=== PATIENT | female | born 1985 | race Caucasian/White ===

== ENCOUNTER 2019-09-04 13:46 | Outpatient (CLI) | payer BC, SELFPAY ==
--- NOTE | ~2019-09-04 | MM_ITS ---
CORRECTED REPORT ORDERING DOCTOR CORRECTED TO DR. Cathie CAICEDO. 09/06/19 sef EXAMINATION: MM screening beth BI w alison HISTORY: Screening mammogram TECHNIQUE: Craniocaudal and mediolateral oblique 3-D tomosynthesis images were obtained and synthetic 2-D images were generated. CAD analysis was submitted and interpreted. COMPARISON: None, baseline BREAST PARENCHYMAL COMPOSITION: There are scattered areas of fibroglandular density. FINDINGS: There is no evidence of suspicious mass, calcification, or architectural distortion to suggest malignancy in either breast. IMPRESSION: 1. No mammographic evidence of malignancy. 2. Recommend routine screening mammography beginning at age 40. BI-RADS Category 1: Negative Reviewed, dictated and finalized at location A. WARE QA SYSTEM SPECIALIST MTDD
== END 2019-09-04 13:47 | disposition home or self-care (01) ==
PROVIDERS: PCP Emergency Medicine; Visit Provider Emergency Medicine
DX: Z12.31 Encounter for screening mammogram for malignant neoplasm of breast (principal)
CPT/HCPCS: 77063; 77067

== ENCOUNTER 2020-10-20 12:54 | Outpatient (CLI) | payer OTHER, SELFPAY ==
[2020-10-20 14:26] LABS: SARS-CoV-2 RNA PCR Negative (Negative)
== END 2020-10-20 12:55 | disposition home or self-care (01) ==
PROVIDERS: PCP Internal Medicine; Visit Provider Nurse Practitioner Family
DX: J02.9 Acute pharyngitis, unspecified (principal); Z20.822 Contact with and (suspected) exposure to COVID-19
CPT/HCPCS: 87081; 87880; C9803; U0003; U0005

== ENCOUNTER 2021-02-20 08:00 | Outpatient (RCR) | payer OTHER, SELFPAY ==
--- NOTE | 2020-12-22 15:54 | OTOPEVAL ---
OCCUPATIONAL THERAPY INITIAL EVALUATION: 12/22/2020 Thank you for referring Linda Richardson to [facility].? The patient is scheduled to be seen for therapy? 1-2x/week for 4 weeks. Please review, sign, date and return this plan of care BHARAT. I agree with and certify that the following plan of care is medically necessary. Referring Physician Date Attending Provider: Gt Verde MD *OT Outpatient Evaluation Start: 12/22/20 12:49 Freq: Status: Active Protocol: Document 12/22/20 14:36 KJL (Rec: 12/22/20 15:54 KJL [id number]) Therapy Assessment Status Assessment Status Assessment Status Evaluation Evaluation Information Problem Diagnosis B OCTR, R cubital tunnel release Onset August-October 2020 Additional Evaluation Detail Patient had first R OCTR August 19, 2020, R UE ulnar neuroplasty at elbow approximately a month later in september 2020, and L OCTR on October 19, 2020. Plan to have L UE ulnar neuroplasty at elbow on January 06, [address] Verde. 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 Patient reports numbness, achy, throbbing throughout posterior and medial aspect for elbow into forearm and into ulnar aspect of fingertips. resulting in R UE ulnar neuroplasty at elbow and a L UE ulnar neuroplasty at elbow scheduled for the end of December. since elbow surgery on R UE, pain has been decreased and almost resolved. Patient reports since surgery on bilateral OCTR, it has been painful to drive and caused achiness when gripping and grasping items for prolonged periods of time. Patient reports painful when completing yard work including using la
--- NOTE | 2020-12-29 12:58 | PCOTNOTE ---
Patient did not show up for scheduled appointment this date. When called patient, patient reports mix up of dates and thought appointment was tomorrow. Re-scheduled patient's appointment to 12/31/2020.
--- NOTE | 2021-01-21 15:29 | OTOPEVAL ---
OCCUPATIONAL THERAPY RE-EVALUATION AND PROGRESS REPORT 01/21/21 Linda presents today for OT re-evaluation after 3 weeks of therapy (6 treatment sessions total) following bilateral carpal tunnel release surgeries and bilateral ulnar neuroplasty surgeries with residual pain and weakness. Patient is making good progress with reduced pain, improved flexibility, and improved strength. The right hand continues to have sensation deficits in the median nerve distribution, otherwise all other areas of both hands are testing within normal limits. She has been compliant with HEP for right UE strengthening and left UE active ROM. Continued skilled OT is indicated to progress left UE strengthening, scar management, and to continue to treat right carpal tunnel. Thank you for referring Linda Richardson to [facility].? The patient is scheduled to be seen for therapy? 2x/week for 4 weeks. Please review, sign, date and return this plan of care BHARAT. I agree with and certify that the following plan of care is medically necessary. Referring Physician Date Referring Provider: Gt Verde MD *OT Outpatient Re-Evaluation Re-Evaluation Information Problem Diagnosis Bilateral carpal tunnel and cubital tunnel release surgeries Additional Evaluation Detail (R) CTR Aug (R) cubital tunnel release September (L) CTR October (L) cubital tunnel December Subjective Information Patient reports feeling that Query Text:As Reported By Patient/ her right hand is stronger. Family She states that she continues to feel numbness in her thumb, index, and middle fingers on the right, however. 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 State the right elbow and ulnar 2 digits are great , having no issues or numbness. Reports tenderness in the left palm in the carpal tunnel scar site. Reports no paresthesias in the first three digits. Reports soreness and tenderness in the left cubital tunnel scar site and that the ulnar 2 digits are great , having no issues or numbness. Functionally the patient reports being able to do all the things she needs to do for herself, except after a lot of activity she will have pain and be sore after. She also
--- NOTE | 2021-02-20 08:45 | OTOPEVAL ---
OCCUPATIONAL THERAPY RE-EVALUATION AND DISCHARGE SUMMARY 02/20/21 Linda presents today for final OT re-evaluation s/p bilateral carpal tunnel and cubital tunnel release surgeries. She has made excellent progress. Today shows return to normal ROM and strength bilaterally. Residual deficit in sensation in the median nerve distribution of the right hand as demonstrated by 2-pt discrimination and Mayo-Marvin testing results. Patient is independent with ROM, stretching, nerve gliding, and night splinting to continue to help facilitate optimal nerve healing on the right. No further skilled OT indicated at this time. Patient in agreement with discharge. Thank you for referring Linda Richardson to [facility]. Please review, sign, date and return this Discharge Note BHARAT. I agree with and certify that the following plan of care is medically necessary. Referring Physician Date Referring Provider: Gt Verde MD *OT Outpatient Re-Evaluation Evaluation Information Problem Diagnosis Bilateral carpal tunnel and cubital tunnel release surgeries Onset -October 2020 Additional Evaluation Detail (R) CTR 09/07 (R) cubital tunnel release 10/05 (L) CTR 11/05 (L) cubital tunnel 01/05 Therapy began 12/22/20. Today is her second and final re- evaluation. Subjective Information Patient reports prolonged Query Text:As Reported By Patient/ gripping, such as holding a Family steering wheel, exacerbates her CT symptoms bilaterally, worse on the right than the left. She states that she continues to feel numbness in her thumb, index, and middle fingers on the right. She reports no issues with the ulnar 2 digits bilaterally. Reports residual tenderness on the left elbow incision. States that she continues to drop items with the right hand. Functionally the patient reports being able to do all the things she needs to do for herself, except after a lot of activity she will have pain /soreness after, which is alleviated by rest and stretching. She also notes that sustained gripping continues to give her pain and increased numbness,
== END 2021-02-25 15:30 | disposition home or self-care (01) ==
LOC: ANHOT 08:00
PROVIDERS: PCP Internal Medicine; Visit Provider Plastic Surgery
DX: Z48.89 Encounter for other specified surgical aftercare (principal)
CPT/HCPCS: 97018; 97035; 97110; 97140; 97165

== ENCOUNTER 2021-05-01 08:17 | Outpatient (CLI) | payer OTHER, SELFPAY ==
--- NOTE | ~2021-05-01 | US_ITS ---
EXAMINATION: US aorta EXAM DATE: 05/01/2021 08:38 INDICATION: Abdominal Pain, Aortic Aneurysm. TECHNIQUE: Multiple grayscale and Doppler images of the aorta were obtained (by a technologist who pe rformed the scan) and subsequently reviewed. There is no prior study for comparison. FINDINGS: The abdominal aorta measures up to 2.5 cm proximally, 2.3 cm mid aspect, 1.7 cm distally. The right a nd left iliac bifurcations are also normal in size. Smooth appearing aortic wall. IMPRESSION: 1. Normal abdominal aortic ultrasound. Reviewed, dictated and finalized at location D.
== END 2021-05-01 08:18 | disposition home or self-care (01) ==
LOC: CHSIMG 08:20
PROVIDERS: PCP Internal Medicine; Visit Provider Internal Medicine
DX: R00.2 Palpitations (principal); R10.9 Unspecified abdominal pain
CPT/HCPCS: 76775

== ENCOUNTER 2021-05-07 10:01 | Outpatient (CLI) | payer OTHER, SELFPAY ==
--- NOTE | ~2021-05-07 | MM_ITS ---
EXAMINATION: MM screening beth BI w alison HISTORY: Screening mammogram TECHNIQUE: Craniocaudal and mediolateral oblique 3-D tomosynthesis images were obtained and synthetic 2-D images were generated. CAD analysis was submitted and interpreted. COMPARISON: September 04, 2019 bilateral digital screening mammogram BREAST PARENCHYMAL COMPOSITION: There are scattered areas of fibroglandular density. FINDINGS: There is no evidence of suspicious mass, calcification, or architectural distortion to sugg est malignancy in either breast. There has been no suspicious interval change. IMPRESSION: 1. No mammographic evidence of malignancy. 2. Recommend routine screening mammography in one year. BI-RADS Category 1: Negative Reviewed, dictated and finalized at location A.
--- NOTE | 2021-05-07 11:25 | ECHO_ITS ---
Patient Info Name: Linda Richardson Age: 35 years : 1985 Gender: Female Ht: 63 in Wt: 220 lbs BSA: 2.16 m2 HR: 73 bpm BP: 135 / 92 mmHg Technical Quality: Good Exam Date: 05/07/2021 10:29 AM Exam Location: [facility] [place] Patient Status: Outpatient Admit Date: 05/07/2021 Staff Ordering Physician: Ja Hendricks MD Stacker Tender: Korey Keenan RDCS, RT Attending Provider: Ja Hendricks MD Exam Type: CA echo doppler color flow Study Info Indications R00.2 - Palpitations Complete two-dimensional, color flow and Doppler transthoracic echocardiogram is performed. Strain analysis performed. Summary 1. Complete two-dimensional, color flow and Doppler transthoracic echocardiogram is performed. 2. Left ventricular chamber dimension is normal. 3. Left ventricular systolic function is normal, estimated at 60-65%. 4. The left ventricular diastolic function is normal. 5. E/e' 5 is not elevated. 6. Global longitudinal strain is normal at -19.7%. Left Ventricle E/e' 5 is not elevated. Global longitudinal strain is normal at -19.7%. Left ventricular chamber dimension is normal. Left ventricular systolic function is normal, estimated at 60-65%. The left ventricular diastolic function is normal. Right Ventricle Right ventricular systolic function is normal and with normal TAPSE 2.1 cm. Right ventricular chamber dimension is normal. Left Atria Left atrial chamber dimension is normal. Right Atria Right atrial chamber dimension is normal. Aortic Valve The aortic valve is trileaflet. There is no aortic valve stenosis. There is no aortic valve regurgitation. Pulmonic Valve There is no pulmonic regurgitation. Mitral Valve There is no mitral valve stenosis. There is no mitral valve regurgitation. Tricuspid Valve There is no tricuspid valve regurgitation. Pericardium/Pleural There is no pericardial effusion. Inferior Vena Cava Normal inferior vena cava with >50% collapse upon inspiration consistent with normal right atrial pressure, 5 mmHg. Aorta The aortic root size at the sinus of Valsalva is normal. Left Ventricular Outflow Tract Name Value Normal LVOT 2D LVOT Diameter 2.0 cm LVOT Doppler LVOT Peak Velocity 100 cm/s LVOT Peak Gradient 4 mmHg LVOT Mean Gradient 2 mmHg LVOT VTI 18 cm LVOT VTI/AV VTI Ratio 0.8 LVOT Stroke Volume 58 ml Mitral Valve Name Value Normal MV Doppler MV Decel [place] 297 cm/s2 MV PHT 69 ms MV Area (PHT) 3.2 cm2 4.0-5.0 MV Diastolic Function MV E Peak Velocity
== END 2021-05-07 10:02 | disposition home or self-care (01) ==
LOC: CHSIMG 10:02
PROVIDERS: PCP Internal Medicine; Visit Provider Internal Medicine
DX: R00.2 Palpitations (principal); R10.9 Unspecified abdominal pain; Z82.49 Family history of ischemic heart disease and other diseases of the circulatory system; Z12.31 Encounter for screening mammogram for malignant neoplasm of breast
CPT/HCPCS: 77063; 77067; 93306

== ENCOUNTER 2021-07-09 13:31 | Outpatient (RCR) | payer OTHER, SELFPAY ==
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
--- NOTE | 2021-08-05 15:30 | PTOPEVAL ---
Thank you for referring Linda Richardson to [facility].? The patient is scheduled to be seen for therapy? ____x/week for ___ weeks. Please review, sign, date and return this plan of care BHARAT. I agree with and certify that the following plan of care is medically necessary. Referring Physician Date Admitting Provider: Attending Provider: Ja Hendricks MD Referring Provider: *PT Outpatient Evaluation Start: 07/09/21 13:45 Freq: Status: Active Protocol: Document 08/05/21 14:15 [facility] (Rec: 08/05/21 15:30 [facility] [id number]) Therapy Assessment Status Assessment Status Assessment Status Re-evaluation Evaluation Information Problem Diagnosis neck and left shoulder pain Onset 06/30/21 Subjective Information patient reports she feels Query Text:As Reported By Patient/ better this date with her Family mobility in the L shoulder, but reports she still has pain in the front of the shoulder and middle back. she reports she is most affected in the shoulder with reaching and carrying activities, and most in the back with bending forward. Pain Assessment Timing of Pain Assessment Timing of Pain Assessment Assessment Pain Scale Pain Scale Used Numeric (1 - 10) Self Report Pain Assessment Left Shoulder(s) Reported Pain Level 5 Upper Back Reported Pain Level 5 Pain Score Pain Score 5,5: Self Report Interventions Used Interventions Used By Clinicians Activity or ADL's,Electrical Stimulation,Exercise,Heat Cervical and Lumbar ROM Cervical ROM Cervical Flexion (0-60) 50 Query Text:Active in Degrees Cervical Extension (0-70) 45 Query Text:Active in Degrees Cervical Lateral Flexion Right (0-50) 30 Query Text:Active in Degrees Cervical Lateral Flexion Left (0-50) 25 Query Text:Active in Degrees Cervical Rotation Right (0-90) 70 Query Text:Active in Degrees Cervical Rotation Left (0-90) 70 Query Text:Active in Degrees Cervical ROM Comments Pt. presents with pain in all planes of cervical spine movement Lumbar ROM Lumbar Flexion Active Knee Query Text:Hands to: Lumbar Comments slow hesitant forward flex movement Upper Extremity Range of Motion General Upper Extremity Range of Motion Gross Upper Extremity Range of Motion -left shoulder flexion 162 Comments
--- NOTE | 2021-09-02 14:59 | PTOPEVAL ---
Thank you for referring Linda Richardson to [facility].? The patient is scheduled to be seen for therapy? ____x/week for ___ weeks. Please review, sign, date and return this plan of care BHARAT. I agree with and certify that the following plan of care is medically necessary. Referring Physician Date Admitting Provider: Attending Provider: Ja Hendricks MD Referring Provider: *PT Outpatient Evaluation Start: 07/09/21 13:45 Freq: Status: Active Protocol: Document 09/02/21 11:[address] [facility] (Rec: 09/02/21 14:[address] [facility] [id number]) Therapy Assessment Status Assessment Status Assessment Status Re-evaluation Outpatient Past Medical History Neurological History Hx Neurological Disorders No Significant History Cardiovascular History Hx Cardiac Disorders No Significant History Respiratory History Hx Respiratory Disorders No Significant History Gastrointestinal History Hx Gastrointestinal Disorders No Significant History Genitourinary History Hx Genitourinary Disorders No Significant History Musculoskeletal History Hx Musculoskeletal Disorders No Significant History Hematological History Hx Hematological Disorders No Significant History Endocrine History Hx Endocrine Disorders No Significant History HEENT History Hx HEENT Disorders No Significant History Integumentary History Hx Other Skin Disorders Yes: discoid lupus Reproductive History Hx Reproductive Disorders No Significant History Psychosocial History Hx Psychiatric Disorders No Significant History Pain History History of Any Previous or Ongoing No Significant History Instance of Pain Evaluation Information Problem Diagnosis neck and left shoulder pain Onset 06/30/21 Additional Evaluation Detail ndi = 20% functional deficits reflecting more of the upper back quick dash = 54% functionally declined Subjective Information patient reports she continues Query Text:As Reported By Patient/ to have pain in the L shoulder Family and upper back. she reports her neck is much better and pain free now. she reports continues tightness/pulling and pain in the L shoulder with overhead reaching, reachign behind her back, and with trying to lift or carry any objects. Pain Assessment Timing of Pain Assessment Timing of Pain Assessment Assessment Pain Scale Pain Scale Used Numeric (1 - 10) Self Report Pain Assessment Left Shoulder(s)
== END 2021-09-02 23:59 | disposition home or self-care (01) ==
LOC: CHSPT 13:31
PROVIDERS: PCP Internal Medicine; Visit Provider Internal Medicine
DX: M54.9 Dorsalgia, unspecified (principal); M54.2 Cervicalgia; M25.512 Pain in left shoulder
CPT/HCPCS: 97014; 97110; 97140; 97161; G0283

== ENCOUNTER 2021-09-12 09:01 | Outpatient (CLI) | payer OTHER, SELFPAY ==
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
--- NOTE | ~2021-09-12 | XR_ITS ---
EXAMINATION: XR thoracic spine 3V EXAM DATE: 09/12/2021 10:05 INDICATION: Mid back pain. TECHNIQUE: Frontal and lateral projections of the thoracic spine as well as lateral swimmers projecti on of the upper thoracic spine for interpretation. There is no prior study for comparison. FINDINGS: The vertebral bodies are aligned in the AP dimension. Vertebral body and disc heights are well-maintained. There are no acute fractures identified. There are no bony erosions identified. Para spinal soft tissue is unremarkable. IMPRESSION: Unremarkable XR thoracic spine 3V exam. Reviewed, dictated and finalized at location A. T GRINDER
== END 2021-09-12 09:02 | disposition home or self-care (01) ==
PROVIDERS: PCP Internal Medicine; Visit Provider Internal Medicine
DX: M54.6 Pain in thoracic spine (principal); M25.512 Pain in left shoulder
CPT/HCPCS: 72072; 73221

== ENCOUNTER 2021-09-16 09:28 | Outpatient (CLI) | payer OTHER, SELFPAY ==
--- NOTE | ~2021-09-16 | US_ITS ---
EXAMINATION: US soft tissue UE RT DATE: 09/16/2021 09:41 INDICATION: Right upper arm lump. TECHNIQUE: Multiple grayscale and Doppler ultrasound images of the right upper arm were obtained. COMPARISON: None FINDINGS: In the patient's area of concern, there is a 2.0 x 0.7 x 1.5 cm subcutaneous mass with echo genicity and echotexture similar to normal subcutaneous fat. IMPRESSION: 1. 2.0 cm subcutaneous mass in medial right upper arm, likely a lipoma. Reviewed, dictated and finalized at location A. H NAPPING SUPERVISOR
== END 2021-09-16 09:29 | disposition home or self-care (01) ==
LOC: CHSIMG 09:29
PROVIDERS: PCP Internal Medicine; Visit Provider Internal Medicine
DX: R22.31 Localized swelling, mass and lump, right upper limb (principal)
CPT/HCPCS: 76882

== ENCOUNTER → 2021-09-19 00:01 | Outpatient (CLI) | payer OTHER, SELFPAY ==
[2021-09-19 12:28] LABS: SARS-CoV-2 RNA PCR Negative
== END ==
PROVIDERS: PCP Internal Medicine; Visit Provider Internal Medicine Gastroenterology
DX: Z01.812 Encounter for preprocedural laboratory examination (principal); Z20.822 Contact with and (suspected) exposure to COVID-19
CPT/HCPCS: C9803; U0003; U0005

== ENCOUNTER 2021-09-22 01:19 | Day surgery (SDC) | payer OTHER, SELFPAY ==
[2021-08-14 12:52] VITALS: BMI 41.0
--- NOTE | 2021-09-14 13:59 | PC.NURSE ---
Patient updated on new dates and times. prior interview completed 08/14/21.
[2021-09-22 12:27] VITALS: BP 142/98; PULSE 97; RESP 18; TEMP 36.5; O2SAT 100
[2021-09-22] MEDS: LACTATED RINGERS 1,000 ML 150 ML IV CONT (12:29)
--- NOTE | 2021-09-22 12:40 | P.PNAN_ITS ---
Anes - Initial Pre Proc Eval Procedure: Operation Date: 09/22/21 13:45 Proposed Procedures p Esophagogastroduodenoscopy & Colonoscopy - Bernardo Latham MD Date/Time: 09/22/21 12:40 Surgeon: Bernardo Latham MD Pre Op Diagnosis: blood in stool, change in bowel habits, nausea Patient Data Age: 36 Gender: F Height: 1.6 m Weight: 103.2 kg Last Vital Signs Temp 97.7 F 09/22/21 12:27 Pulse 97 09/22/21 12:27 Resp 18 09/22/21 12:27 BP 142/98 H 09/22/21 12:27 Pulse Ox 100 09/22/21 12:27 Allergies Allergy/AdvReac Type Severity Reaction Status Date / Time No Known Allergies Allergy Unverified 09/22/21 12:24 Home Medications Medication Instructions Recorded Confirmed Type No Home Medications 08/14/21 09/22/21 History Patient hx anesthesia problems: none Family hx anesthesia problems: none Results Review: All pre-operative results and documents have been reviewed as part of the pre-operative evaluation. [facility] Past Medical History Medical History (Updated 07/28/21 @ 10:46 by Mari Friedman CMA) Chronic discoid lupus erythematosus Discoid lupus Family History Family History Father Acute myocardial infarction Social History Social History (Updated 07/28/21 @ 10:43 by Mari Friedman CMA) Smoking packs per day: 0.25 Smoking cigarettes per day: 5.0 Years smoked: 7 Smoking pack-years: 1.75 Smoking status: Former smoker Tobacco type: cigarettes Alcohol intake: never Substance use: never Substance use type: does not use Living arrangements: with family Spiritual care concerns: No Anes - Eval Final PreProcedure Day of Procedure 09/22/21 12:40 Patient weight: morbidly obese Heart: regular rate and rhythm Lungs: clear to auscultation Airway: Mallampati scale class II Neurological: alert and oriented Last oral intake: >/= 8 hours ASA classification: III Emergent: no Anesthetic plan: proceed Anesthesia type and monitoring: general GIVS and standard monitoring Results Review: All pre-operative results and documents have been reviewed as part of the pre-operative evaluation. Informed Consent: The patient's anesthetic plan and its attendant risks and benefits were discussed with the patient/family/POA. Questions were solicited and answers provided to the satisfaction of the patient/family/POA.
--- NOTE | 2021-09-22 12:45 | WPDANESEPPF ---
Anes - Initial Pre Proc Eval Procedure: Operation Date: 09/22/21 13:45 Proposed Procedures p Esophagogastroduodenoscopy & Colonoscopy - Bernardo Lathma MD Date/Time: 09/22/21 12:45 Surgeon: Bernardo Latham MD Pre Op Diagnosis: blood in stool, change in bowel habits, nausea Patient Data Age: 36 Gender: F Height: 1.6 m Weight: 103.2 kg Last Vital Signs Temp 97.7 F 09/22/21 12:27 Pulse 97 09/22/21 12:27 Resp 18 09/22/21 12:27 BP 142/98 H 09/22/21 12:27 Pulse Ox 100 09/22/21 12:27 Allergies Allergy/AdvReac Type Severity Reaction Status Date / Time No Known Allergies Allergy Unverified 09/22/21 12:24 Home Medications Medication Instructions Recorded Confirmed Type No Home Medications 08/14/21 09/22/21 History Patient hx anesthesia problems: none Family hx anesthesia problems: none Results Review: All pre-operative results and documents have been reviewed as part of the pre-operative evaluation. [facility] Past Medical History Medical History (Updated 07/28/21 @ 10:46 by Mari Friedman CMA) Chronic discoid lupus erythematosus Discoid lupus Family History Family History Father Acute myocardial infarction Social History Social History (Updated 07/28/21 @ 10:43 by Mari Friedman CMA) Smoking packs per day: 0.25 Smoking cigarettes per day: 5.0 Years smoked: 7 Smoking pack-years: 1.75 Smoking status: Former smoker Tobacco type: cigarettes Alcohol intake: never Substance use: never Substance use type: does not use Living arrangements: with family Spiritual care concerns: No Anes - Eval Final PreProcedure Day of Procedure 09/22/21 12:45 Patient weight: morbidly obese Heart: regular rate and rhythm Lungs: clear to auscultation Airway: Mallampati scale class II Neurological: alert and oriented Last oral intake: >/= 8 hours ASA classification: III Emergent: no Anesthetic plan: proceed Anesthesia type and monitoring: general GIVS and standard monitoring Results Review: All pre-operative results and documents have been reviewed as part of the pre-operative evaluation. Informed Consent: The patient's anesthetic plan and its attendant risks and benefits were discussed with the patient/family/POA. Questions were solicited and answers provided to the satisfaction of the patient/family/POA.
--- NOTE | 2021-09-22 12:52 | PM.HPGS ---
History of Present Illness History of Present Illness Consent: Risks, benefits, and alternatives have been discussed and questions answered. Patient agrees to proceed with procedure. Chief complaint: blood in stool, change in bowel habits, nausea Narrative: Linda Richardson is a 36 year old female with GI issues since childhood, intermittent nausea, also diagnosed with IBS alternating diarrhea and constipation using IBS meds but never had scopes. Review of Systems Constitutional: Constitutional: Denies headache(s) and Denies weakness Eyes: Eyes: Denies blurry vision ENT: Reports Normal hearing present, Denies headache(s) and Denies neck pain Cardiovascular: Cardiovascular: Denies chest pain and Denies dyspnea Respiratory: Respiratory: Denies dyspnea Gastrointestinal: Gastrointestinal: Reports no additional gastrointestinal complaints Genitourinary: Genitourinary: Denies dysuria Musculoskeletal: Musculoskeletal: Denies neck pain Integumentary/Breasts: Skin/Breast: Denies dry skin Neurologic: Reports Normal hearing present, Denies headache(s) and Denies weakness Psychiatric: Psychiatric: Denies anxiety Endocrine: Endocrine: Denies change in body appearance Hematologic/Lymphatic: Hematologic/Lymphatic: Denies easy bleeding Allergic/Immunologic: Allergic/Immunologic: Denies urticaria PMFSH Past Medical History Medical History (Updated 09/22/21 @ 12:53 by Bernardo Latham MD) Alternating constipation and diarrhea Chronic discoid lupus erythematosus Discoid lupus IBS (irritable colon syndrome) Nausea Family History Family History Father Acute myocardial infarction Social History Social History (Updated 07/28/21 @ 10:43 by Mari Friedman CMA) Smoking packs per day: 0.25 Smoking cigarettes per day: 5.0 Years smoked: 7 Smoking pack-years: 1.75 Smoking status: Former smoker Tobacco type: cigarettes Alcohol intake: never Substance use: never Substance use type: does not use Living arrangements: with family Spiritual care concerns: No Meds Home Medications and Allergies Home Medications Medication Instructions Recorded Confirmed Type No Home Medications 08/14/21 09/22/21 History Allergies Allergy/AdvReac Type Severity Reaction Status Date / Time No Known Allergies Allergy Unverified 09/22/21 12:24 Vital Signs Vital Signs - 24 hr 09/22/21 12:27 Temperature 97.7 F Pulse Rate 97 Respiratory Rate 18 Blood Pressure 142/98 H Pulse Oximetry 100 Exam Const: General: comfortable and no acute distress HENMT: General nose exam: Normal nares present Eyes: General: appearance normal, both eyes and all related structures Neck: Neck: no JVD Resp: Auscultation: clear to auscultation bilaterally Cardio: Rate: regular rate Rhythm: regular rhythm GI: Inspection: non-distended GI Palp: Yes Soft to palpation Skin: General skin exam: normal color Neuro: General: gait normal Speech: normal speech Extrem: General: normal to inspection Psych: Mental Status: mental status grossly normal Assessment and Plan Assessment and plan (1) Alternating constipation and diarrhea: Code(s): R19.8 - Other specified symptoms and signs involving the digestive system and abdomen Status: Acute Assessment and Plan: colonoscopy with random bx (2) IBS (irritable colon syndrome): Code(s): K58.9 - Irritable bowel syndrome without diarrhea Status: Acute (3) Nausea: Code(s): R11.0 - Nausea Status: Acute Assessment and Plan: egd with bx
[2021-09-22] MEDS: BENZOCAINE (*SP) 60 ML SPRAY CAN (HURRICAINE) 1 SPRAY MUCOUS MEM (12:58)
--- NOTE | 2021-09-22 13:10 | SUR.OPER ---
EGD ENDED 1304, COLONOSCOPY STARTED AT 1308.
[2021-09-22 13:23] VITALS: BP 131/73; PULSE 80; RESP 15; O2SAT 99
[2021-09-22 13:33] VITALS: BP 104/61; PULSE 79; RESP 18; O2SAT 94
[2021-09-22 13:43] VITALS: BP 112/66; PULSE 75; RESP 17; O2SAT 100
== END 2021-09-22 13:57 | disposition home or self-care (01) ==
PROVIDERS: PCP Internal Medicine; Visit Provider Internal Medicine Gastroenterology
PROC: 0DJ08ZZ Inspection of Upper Intestinal Tract, Via Natural or Artificial Opening Endoscopic (ICD-10-PCS; CPT 43235; principal; 2021-09-22 13:45)
DX: K58.2 Mixed irritable bowel syndrome (principal); K63.5 Polyp of colon; K64.8 Other hemorrhoids; K29.50 Unspecified chronic gastritis without bleeding; L93.0 Discoid lupus erythematosus; Z87.891 Personal history of nicotine dependence
CPT/HCPCS: 45385; 45380; 43239; 88305; J2704; J7120

== ENCOUNTER → 2021-10-03 00:44 | Outpatient (CLI) | payer OTHER, SELFPAY ==
[2021-10-03 11:32] LABS: SARS-CoV-2 RNA PCR Negative
== END ==
PROVIDERS: PCP Internal Medicine; Visit Provider Surgery
DX: Z01.812 Encounter for preprocedural laboratory examination (principal); Z20.822 Contact with and (suspected) exposure to COVID-19
CPT/HCPCS: C9803; U0003; U0005

== ENCOUNTER 2021-10-07 00:56 | Day surgery (SDC) | payer OTHER, SELFPAY ==
[2021-09-24 14:31] VITALS: BMI 39.8
--- NOTE | 2021-09-24 14:42 | PC.NURSE ---
Report to the Outpatient Waiting Room, entrance under the green pavilion located off [facility], at time ___1000____ on date __10/07/2021 . OR Time: ____1200____. - You and your visitor will be asked a series of questions to screen for COVID 19 for your protection. - A mask is required within the hospital. Preoperative COVID Testing: If not COVID vaccinated a COVID test must be conducted within 72 hours of surgery and patient is asked to isolate self from time of testing until procedure. You will go to the [facility] for your COVID testing. The [facility] site is located at the corner of [address] from [facility]. Appointment 10/03/21 @0935. You will only be called if COVID results are positive and your surgeon may reschedule your elective surgery date. Patients may have clear liquids (water, carbonated beverages, clear teas, apple juice) until 3 hours prior to surgery with a maximum of 20 ounces. - No food from midnight until time of surgery - Infants may have breast milk until 4 hours before surgery, infant formula 6 hours prior to surgery. - Children will be allowed to drink immediately following surgery. If applicable, please bring a bottle or sippy cup to assist with drinking. Juice, water, soda, and popsicles are readily available. For infants on formula, please bring formula the day of surgery. Pacifiers are allowed. Take the following medications with a SIP of water the morning of surgery: Medications to discontinue per physician Date to take last dose Please no make-up, nail mozambican, hairspray, perfume, deodorant, or body powder the day of surgery. No jewelry (including any body piercings) or valuables the day of surgery, leave them at home. Please take a shower or bath the night before, or the morning of, surgery with an antibacterial soap. Wear comfortable, loose fitting clothing. Children are encouraged to wear pajamas. - Jewelry must be removed prior to entering the operating room. Rings and piercings that are not removed may be cut off. - The hospital will not accept responsibility for valuables. - Please leave all valuables, including medications, at home the day of surgery. If you are going home after surgery, a licensed special events driver must drive you home. - NO public transportation without another adult. - We recommend that an adult stay with you for 24 hours following discharge. - We also recommend that you do not drive, make important decision, drink alcoholic beverages, or take any drugs that were not prescribed by your health care provider for at least 24 hours after your discharge time. For Pediatric surgeries, we recommend two adults accompany the child home (only one inside the building at this time). One visitor will be allowed to accompany the patient into the hospital. Patients visitor will be instructed to remain with patient at all times or leave the building. We will allow the visitor to come back to the postoperative area when patient is ready. Follow any additional instructions given to you from your surgeon. Telephone instructions given to patient and asked if any additional questions and then verbalized understanding. Patient advised to call surgeon office or pre surgery nurse liaison [phone] if any additional questions.
--- NOTE | 2021-10-06 14:19 | P.PNAN_ITS ---
Anes - Initial Pre Proc Eval Procedure: Operation Date: 10/07/21 12:00 Proposed Procedures p Excisional Biopsy Right Upper Extremity Mass - Airam Pavon MD Date/Time: 10/06/21 14:19 Surgeon: Airam Pavon MD Pre Op Diagnosis: Rt Upper Extremity Mass Patient Data Age: 36 Gender: F Height: 1.6 m Weight: 102.06 kg Allergies Allergy/AdvReac Type Severity Reaction Status Date / Time No Known Allergies Allergy Verified 09/24/21 14:29 Home Medications Medication Instructions Recorded Confirmed Type phentermine 15 mg capsule 15 mg PO DAILY 09/22/21 10/07/21 History Patient hx anesthesia problems: none Family hx anesthesia problems: none Results Review: All pre-operative results and documents have been reviewed as part of the pre-operative evaluation. [facility] Past Medical History Medical History Alternating constipation and diarrhea Chronic discoid lupus erythematosus Discoid lupus IBS (irritable colon syndrome) Nausea Surgical History Surgical History H/O elbow surgery BILATERAL History of carpal tunnel surgery of left wrist History of carpal tunnel surgery of right wrist Family History Family History Father Acute myocardial infarction Hypertension Social History Social History Smoking packs per day: 0.25 Smoking cigarettes per day: 5.0 Years smoked: 10 Smoking pack-years: 2.50 Smoking status: Former smoker Tobacco type: cigarettes Smoking end date: 09/25/11 Alcohol intake: never Substance use: never Substance use type: does not use Living arrangements: with family Spiritual care concerns: No Anes - Eval Final PreProcedure Day of Procedure 10/06/21 14:19 Patient weight: morbidly obese Heart: regular rate and rhythm Lungs: clear to auscultation Airway: Mallampati scale Last oral intake: >/= 8 hours ASA classification: III Emergent: no Anesthetic plan: proceed Anesthesia type and monitoring: general GIVS and standard monitoring Results Review: All pre-operative results and documents have been reviewed as part of the pre-operative evaluation. Informed Consent: The patient's anesthetic plan and its attendant risks and benefits were discussed with the patient/family/POA. Questions were solicited and answers provided to the satisfaction of the patient/family/POA.
[2021-10-07 10:15] VITALS: BP 126/76; PULSE 74; RESP 20; TEMP 36.2; O2SAT 99
[2021-10-07] MEDS: LACTATED RINGERS 1,000 ML 30 ML IV CONT (10:40)
--- NOTE | 2021-10-07 11:18 | WPDHPUPDATE1 ---
History and Physical Update Update Date/Time: 10/07/21 11:18 History and Physical has been reviewed, including an updated exam of the patient. There are NO changes in the patient's condition. Risks, benefits, and alternatives have been discussed and questions answered. Patient agrees to proceed with procedure.
[2021-10-07] MEDS: ceFAZolin 2 GM/D5W 50 ML 2 GM/50 ML BAG IVPB (12:06)
--- NOTE | 2021-10-07 12:35 | W.PM.PROC2 ---
Procedure Note - Detailed Date of Procedure 10/07/21 Pre-op Diagnosis Rt Upper Extremity Mass Post-op Diagnosis Same Procedure Performed Excisional biopsy right upper extremity mass measuring approximately 2.5 x 2 cm Surgeon Airam Pavon MD Anesthesia MAC and Local Indications 36-year-old female with right upper extremity mass slowly enlarging in size and symptomatology Findings 2.5 x 2 cm mass in right upper extremity well-circumscribed Description of Procedure The patient was taken to the operating room and placed in the supine position. After adequate induction of MAC anesthesia, patient was prepped and draped in the normal sterile fashion. A time-out was then done to verify the patient's identity, as well as the procedure being performed. I began by localizing the area in and around this mass. Once the area was adequately anesthetized, made an incision over the mass. This incision was taken down through the dermis into the subcutaneous tissue. The mass was noted to be completely within the subcutaneous tissue. This was a well-circumscribed rubbery mass most consistent with lipoma. The mass was removed in full with both blunt and sharp dissection from the surrounding tissue. The mass were now be sent to pathology for further review. Hemostasis was noted in the cavity and no other pathology was noted. The cavity was copiously irrigated. I then closed the subcutaneous tissue with 3-0 Vicryl suture. The skin was closed with 4-0 Monocryl subcuticular suture. Dermabond was placed on the wound. The patient tolerated the procedure and will be transferred to the recovery room in stable condition. Estimated Blood Loss 5 Drains No Packing No Pathology Yes Complications No immediate complications Condition Stable Disposition PACU
[2021-10-07 12:45] VITALS: BP 119/84; PULSE 75; RESP 16; O2SAT 97
[2021-10-07 13:15] VITALS: BP 109/65; PULSE 58; RESP 12
== END 2021-10-07 13:28 | disposition home or self-care (01) ==
PROVIDERS: PCP Internal Medicine; Visit Provider Surgery
PROC: (CPT 24071; principal; 2021-10-07 12:00)
DX: D17.21 Benign lipomatous neoplasm of skin and subcutaneous tissue of right arm (principal); L93.0 Discoid lupus erythematosus; K58.2 Mixed irritable bowel syndrome; Z87.891 Personal history of nicotine dependence; E66.01 Morbid (severe) obesity due to excess calories; Z68.41 Body mass index [BMI] 40.0-44.9, adult
CPT/HCPCS: 24071; 88304; J0690; J2250; J2704; J3010; J7120

== ENCOUNTER 2022-05-18 09:18 | Emergency (ER) | payer OTHER, SELFPAY ==
[2022-05-18] VITALS (7 sets, daily range): BP systolic 132–147; BP diastolic 68–85; PULSE 71–83; RESP 16–20; TEMP 36.4–37; O2SAT 97–100
--- NOTE | ~2022-05-18 | XR_ITS ---
EXAMINATION: XR chest 1V portable DATE: 05/18/2022 09:45 INDICATION: Chest pain. TECHNIQUE: A single frontal view of the chest was obtained. COMPARISON: Chest 2 views 08/26/2015 FINDINGS: The chest demonstrates clear lungs without pneumonia, pleural effusion, or pneumothorax. Th e heart size is normal. IMPRESSION: 1. No acute cardiopulmonary disease. Reviewed, dictated and finalized at location A.
--- NOTE | 2022-05-18 09:22 | ECG_ITS ---
Measurements Intervals [place] Rate: 81 P: 78 WA: 141 QRS: 74 QRSD: 83 T: 51 QT: 358 QTc: 417 Interpretive Statements SINUS RHYTHM BASELINE ARTIFACT- V6 NORMAL ECG NO PREVIOUS ECG AVAILABLE FOR COMPARISON Electronically Signed On 05-18-2022 9:32:14 CDT by Christopher Campbell D.O.
--- NOTE | 2022-05-18 09:44 | ED.CHESTPAIN ---
HPI - Chest Pain General Chief Complaint: Chest Pain Stated Complaint: CHEST PAIN Time Seen by Provider: 05/18/22 09:22 Source: patient Mode of arrival: ambulatory Limitations: no limitations History of Present Illness HPI narrative: Patient is a 36-year-old white female complains of chest pain this is her 5th emergency room visit in the last 4 days. She has a history of palpitations back in August and then starting April 17 her palpitations got worse she complains of being short of breath with activity she has had constant pressure heavy sensation in her back and chest for the last 4 days she has had a decrease appetite. This being Tuesday patient was seen at [facility] in [place] Tuesday complaining of left chest pain and was evaluated she stated they did not find anything other than a few extra beats and they put her on metoprolol. She did not start taking the metoprolol until Tuesday night. Then Tuesday night patient went to [facility] and was evaluated for the same complaint but she was not seen there and Left. She returned Tuesday at 11:00 a.m. and was there until 6:00 p.m. her blood pressure was 157 systolic still she was not seen. Last night, Tuesday night she was seen at [facility] for 2nd time and had repeat evaluation done for her chest pain. He told her everything was normal. She went to her primary care doctor's office this morning who sent her to the emergency department today for evaluation. Denies any nausea vomiting diaphoresis. Patient's greatest fears that she will when she is asleep. Family history: History of NC in her father. Another family member had aneurysm. past medical history irritable bowel syndrome lupus past surgeries bilateral elbows and wrist surgeries. Related Data Home Medications Medication Instructions Recorded Confirmed metoprolol succinate 25 mg 25 mg PO DAILY 05/18/22 05/18/22 tablet,extended release 24 hr Allergies Allergy/AdvReac Type Severity Reaction Status Date / Time No Known Allergies Allergy Verified 05/18/22 09:37 Review of Systems Review of Systems: All systems reviewed & are unremarkable except as noted in HPI and below Constitutional: Constitutional: Reports no additional constitutional complaints Eyes: Eyes: Reports no additional eye complaints ENT: Reports system reviewed and no additional complaints, except as documented Cardiovascular: Cardiovascular: Reports as per HPI, Reports no additional cardiovascular complaints and Reports chest pain Respiratory: Respiratory: Reports no additional respiratory complaints Gastrointestinal: Gastrointestinal: Reports no additional gastrointestinal complaints Genitourinary: Genitourinary: Reports no additional female genitourinary complaints Musculoskeletal: Musculoskeletal: Reports no additional musculoskeletal complaints Integumentary/Breasts: Skin/Breast: Reports system reviewed and no additional complaints, except as docu Neurologic: Reports system reviewed and no additional complaints, except as documented Psychiatric: Psychiatric: Reports no additional psychiatric complaints, Denies anxiety and Denies depression Endocrine: Endocrine: Reports no additional endocrine complaints Hematologic/Lymphatic: Hematologic/Lymphatic: Reports no additional hematologic/lymphatic complaints Allergic/Immunologic: Allergic/Immunologic: Reports no additional allergic/immunologic complaints PMFSH Past Medical History Medical History Alternating constipation and diarrhea Chronic discoid lupus erythematosus Discoid lupus IBS (irritable colon syndrome) Nausea Surgical History Surgical History H/O elbow surgery BILATERAL H/O excision of mass RUE mass 10/07/21 History of carpal tunnel surgery of left wrist History of carpal tunnel surgery of right wrist Family History Family Hi
[2022-05-18] MEDS: ASPIRIN 81 MG CHEWABLE TABLET 324 MG PO (10:01)
[2022-05-18] MEDS: LORazepam (*CRX) 1 MG TABLET PO (10:02)
[2022-05-18 10:03] LABS: Basophils Absolute Auto 0.02 K/mm3 (0.00-0.10); Basophils Percent Auto 0.4 % (0.0-1.0); Hematocrit 41.3 % (35.0-49.0); Hemoglobin 13.4 g/dL (12.0-15.0); Immature Granulocyte Absolute 0.01 K/mm3 (0.00-0.00); Immature Granulocyte Percent A 0.2 % (0.0-0.0); Immature Platelet Fraction Pct 1.5 % (1.0-7.0); Lymphocytes Absolute Auto 1.78 K/mm3 (1.10-4.50); Lymphocytes Percent Auto 35.2 % (18.0-42.0); Mean Corpuscular HGB Conc 32.4 g/dL (32.0-36.0); Mean Corpuscular Hemoglobin 29.8 pg (27.0-31.0); Mean Corpuscular Volume 91.8 fL (78.0-102.0); Mean Platelet Volume 9.7 fl (9.2-11.8); Monocytes Percent Auto 7.9 % (2.0-11.0); Neutrophils Absolute Auto 2.7 K/mm3 (1.7-7.2); Neutrophils Percent Auto 54.3 % (50.0-70.0); Platelet Count Result 231 K/mm3 (150-420); Red Cell Distribution Width 12.2 % (11.6-14.4); White Blood Count 5.1 K/mm3 (4.8-10.8)
[2022-05-18 10:16] LABS: D Dimer 0.23 mg/L (0.19-0.50); Partial Thromboplastin Time 28.1 SEC (23.90-30.70); Prothrombin Time 11.3 Seconds (9.50-12.10)
[2022-05-18 10:23] LABS: Anion Gap 10 mmol/L (8-16); Blood Urea Nitrogen 12 mg/dL (7-18); Carbon Dioxide 27 mmol/L (21-32); Chloride 106 mmol/L (98-108); Estimated CRCL calculation 106 ml/min; Estimated Glomerular Filt Rate > 60; Glucose 102 mg/dL (70-99); NT Pro B Type Natriuretic Pept 49 pg/mL (0-125); Osmolality Calculated 295 mOsm/kg (285-295); Potassium 3.7 mmol/L (3.5-5.1); Sodium 143 mmol/L (136-145)
[2022-05-18 10:28] LABS: Troponin I < 4.0 ng/L (0.00-60.4)
== END 2022-05-18 11:11 | disposition home or self-care (01) ==
PROVIDERS: Emergency Provider Emergency Medicine; PCP Internal Medicine
DX: R07.9 Chest pain, unspecified (principal)
CPT/HCPCS: 36415; 71045; 80048; 83880; 84484; 85025; 85055; 85380; 85610; 85730; 93005; 99284; A9270

== ENCOUNTER 2023-07-25 10:23 | Outpatient (CLI) | payer BC, SELFPAY ==
[2023-07-25 11:18] LABS: Basophils Absolute Auto 0.03 K/mm3 (0.00-0.10); Basophils Percent Auto 0.3 % (0.0-1.0); Eosinophils Percent Auto 3.5 % (1.0-6.0); Hematocrit 40.4 % (35.0-49.0); Hemoglobin 13.6 g/dL (12.0-15.0); Immature Granulocyte Absolute 0.03 K/mm3 (0.00-0.00); Immature Granulocyte Percent A 0.3 % (0.0-0.0); Lymphocytes Absolute Auto 2.83 K/mm3 (1.10-4.50); Lymphocytes Percent Auto 32.6 % (18.0-42.0); Mean Corpuscular HGB Conc 33.7 g/dL (32.0-36.0); Mean Corpuscular Hemoglobin 29.8 pg (27.0-31.0); Mean Corpuscular Volume 88.6 fL (78.0-102.0); Monocytes Absolute Auto 0.66 K/mm3 (0.10-0.90); Monocytes Percent Auto 7.6 % (2.0-11.0); Neutrophils Absolute Auto 4.8 K/mm3 (1.7-7.2); Neutrophils Percent Auto 55.7 % (50.0-70.0); Platelet Count Result 307 K/mm3 (150-420); Red Blood Count 4.56 M/mm3 (4.20-5.40); Red Cell Distribution Width 11.9 % (11.6-14.4); White Blood Count 8.7 K/mm3 (4.8-10.8)
[2023-07-25 11:19] LABS: Appearance Urine Clear (Clear); Bilirubin Urine Negative (Negative); Blood Urine 1+ (Negative); Color Urine Yellow (Yellow); Glucose Urine UA Negative (Negative); Ketones Urine Negative (Negative); Leukocyte Esterase Ur Negative (Negative); Nitrate Urine Negative (Negative); Protein Urine Negative (Negative); Specific Grav Ur >= 1.030 (1.010-1.020); Urobilinogen Urine 0.2 mg/dL (0.2-1.0)
[2023-07-25 11:23] LABS: Add Urine Microscopic? YES; Bacteria Urine Trace /hpf; Mucus Urine Moderate /lpf; Squamous Epithelial Cell Urine Few /hpf (Few); WBC Urine None seen /hpf (0-3)
[2023-07-25 12:02] LABS: Alanine Aminotransferase 28 U/L (14-59); Albumin Level 4.2 g/dL (3.4-5.0); Alkaline Phosphatase 94 U/L (46-116); Anion Gap 11 mmol/L (8-16); Aspartate Amino Transferase 15 U/L (15-37); Bilirubin,Total 0.8 mg/dL (0.00-1.00); Blood Urea Nitrogen 21 mg/dL (7-18); Calcium 9.4 mg/dL (8.5-10.1); Carbon Dioxide 27 mmol/L (21-32); Chloride 102 mmol/L (98-108); Cholesterol 193 mg/dL (0-200); Estimated Glomerular Filt Rate > 60; Glucose 114 mg/dL (70-99); HDL Direct 29 mg/dL (40-60); LDL Cholesterol Calculated 147 mg/dL (<130); Osmolality Calculated 294 mOsm/kg (285-295); Potassium 3.6 mmol/L (3.5-5.1); Sodium 140 mmol/L (136-145); Thyroid Stimulating Hormone 1.24 uIU/mL (0.36-3.74); Total Protein 7.2 g/dL (6.4-8.2); Triglycerides 83 mg/dL (0-150)
[2023-07-25 16:16] LABS: Hemoglobin A1C 5.6 % (<5.7)
== END 2023-07-25 10:24 | disposition home or self-care (01) ==
PROVIDERS: PCP Internal Medicine; Visit Provider Internal Medicine
DX: J45.909 Unspecified asthma, uncomplicated (principal); R73.09 Other abnormal glucose
CPT/HCPCS: 36415; 80053; 80061; 81001; 83036; 84443; 85025; 94060; 94726; 94729

== ENCOUNTER 2023-08-15 06:48 | Outpatient (CLI) | payer BC, SELFPAY ==
--- NOTE | ~2023-08-15 | CT_ITS ---
CT of the Abdomen and Pelvis: Indication: Epigastric pain Technique: 2.5 mm axial scans were obtained through the abdomen and pelvis following intravenous adm inistration of 100 cc of Omnipaque 350. Dose reduction technique was used on this scan by utilizing a utomated exposure control and iterative reconstruction technique. The dose-length product (DLP) was 9 26.00 mGy-cm. Findings: Scans through the lung bases are unremarkable. The liver, spleen, pancreas, gallbladder, adrenals and kidneys are within normal limits. No evidence of aortic aneurysm. No lymphadenopathy. No bowel obstruction or bowel wall thickening. There is no evidence to suggest acute appendicitis. Images through the pelvis were performed. Urinary bladder unremarkable. No adnexal mass evident. No a scites. Impression: No significant abnormalities seen. Reviewed, dictated and finalized at [facility]. 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
== END 2023-08-15 06:49 | disposition home or self-care (01) ==
PROVIDERS: PCP Internal Medicine; Visit Provider Nurse Practitioner Family
DX: R10.13 Epigastric pain (principal)
CPT/HCPCS: 74177; Q9967

== ENCOUNTER 2023-10-12 14:35 | Outpatient (CLI) | payer BC, SELFPAY ==
--- NOTE | ~2023-10-12 | MM_ITS ---
EXAMINATION: MM screening beth BI w alison HISTORY: Screening mammogram TECHNIQUE: Craniocaudal and mediolateral oblique 3-D tomosynthesis images were obtained and synthetic 2-D images were generated. CAD analysis was submitted and interpreted. COMPARISON: , bilateral screening mammogram examinations BREAST PARENCHYMAL COMPOSITION: There are scattered areas of fibroglandular density. FINDINGS: There is no evidence of suspicious mass, calcification, or architectural distortion to sugg est malignancy in either breast. There has been no suspicious interval change. IMPRESSION: 1. No mammographic evidence of malignancy. 2. Recommend routine screening mammography in one year. BI-RADS Category 1: Negative Reviewed, dictated and finalized at location A.
== END 2023-10-12 14:36 | disposition home or self-care (01) ==
LOC: CHSIMG 14:36
PROVIDERS: PCP Internal Medicine; Visit Provider Internal Medicine
DX: Z12.31 Encounter for screening mammogram for malignant neoplasm of breast (principal)
CPT/HCPCS: 77063; 77067

== ENCOUNTER 2024-12-28 07:30 | Outpatient (CLI) | payer BC, SELFPAY ==
--- NOTE | ~2024-12-28 | NM_ITS ---
EXAM: NM gastric emptying study DATE: 12/28/2024 13:22 INDICATION: Nausea and vomiting TECHNIQUE: A gastric emptying study was performed using the methodology of Chen IBANEZ, et al. J Nucl Med 2007; 48:568-572. The patient was given a meal consisting of 2 scrambled eggs labeled with 1 mCi Tc-99m sulfur colloid, 2 slices of toast, two packages of jam, and approximately 120 mL of water. Si multaneous anterior and posterior 1-min images of the abdomen were obtained with the patient supine a t multiple time points over a total period of 4 hours. The geometric mean of anterior and posterior v iews was determined, and the percentage retention was calculated for each time point. COMPARISON: None. FINDINGS: Gastric retention of the radiotracer-labeled meal was 84%, 36%, and 9% at the 1-hour, 2-hour, and 4-h our time points, respectively. With this technique, apparent rapid gastric emptying is suggested by < 30% gastric retention at 1 hour. Delayed gastric emptying is defined by gastric retention of >90% at 1 hour, >60% retention at 2 hours, or >10% retention at 4 hours. IMPRESSION: 1. Normal gastric emptying. Reviewed, dictated and finalized at location A. IMPRESSION: 1. Normal gastric emptying.
--- OUTSIDE RECORDS SUMMARY | 2024-12-28 07:36 | XMS_ITS | Clinical Summary ---
Author Organization [facility] Address [address] [place] [address] Phone Care Team Providers Care Speeder Machine Operator Name Role Phone Vlad Gonzales MD Primary Care Provider [phone] Allergies No known active allergies Medications valacyclovir HCl (VALTREX ORAL) Take by mouth daily. Active vit-iron fumarate-fa (DHARA ) 28 mg iron- 800 mcg Tablet Take 1 Tablet by mouth daily. 30 Tablet 1 07/14/2018 Active Active Problems Problem Noted Date Diagnosed Date Encounter for induction of labor 07/11/2018 Neuropathic pain of forearm, right 02/24/2018 Family History Medical History Relation Name Comments Diabetes Father Relation Name Status Comments Father Social History Tobacco Use Types Packs/Day Years Used Date Smoking Tobacco: Former Smokeless Tobacco: Never Alcohol Use Standard Drinks/Week Comments No 0 (1 standard drink = 0.6 oz pur e alcohol) Comments No Sex and Gender Information Value Date Recorded Sex Assigned at Not on file Legal Sex Female 12:53 PM CDT Gender Identity Not on file Sexual Orientation Not on file Last Filed Vital Signs Vital Sign Reading Time Taken Comments Blood Pressure 132/62 07/14/2018 7:19 AM KINESIOLOGY PROFESSOR Pulse 68 07/14/2018 7:19 AM KINESIOLOGY PROFESSOR Temperature 36.8 C (98.3 F) 07/14/2018 7:19 AM KINESIOLOGY PROFESSOR Respiratory Rate 18 07/14/2018 7:19 AM KINESIOLOGY PROFESSOR Oxygen Saturation 93% 07/12/2018 12:00 PM KINESIOLOGY PROFESSOR Inhaled Oxygen Concentration - - Weight 111.6 kg (246 lb) 07/11/2018 12:59 PM KINESIOLOGY PROFESSOR Height 160 cm (5' 3) 07/11/2018 12:59 PM KINESIOLOGY PROFESSOR Body Mass Index 43.58 07/11/2018 12:59 PM KINESIOLOGY PROFESSOR Plan of Treatment Health Maintenance Due Date Last Done Comments DTAP/TDAP/TD VACCINES (1 - Tdap) 2004 HEPATITIS B VACCINES (1 of 3 - 19+ 3-dose series) 2004 HPV/Cotest (21-29) 2006 CERVICAL CANCER SCREENING 2015 HPV/Cotest (30-65) 2015 PAP SMEAR 2015 INFLUENZA VACCINE (#1) 2024 HPV VACCINES Aged Out No longer eligi ble based on patient's age to complete this topic Insurance [facility] BLUE ACCESS CHOICE Advance Directives For more information, please contact: [phone] * Full Code (Latest Code Status on File) Date Activated Date Inactivated Comments 07/12/2018 5:00 PM 07/14/2018 3:18 PM * Full Code Date Activated Date Inactivated Comments 07/11/2018 2:54 PM 07/12/2018 5:00 PM * Full Code Date Activated Date Inactivated Comments 07/11/2018 2:54 PM 07/11/2018 2:54 PM Care Teams Speeder Machine Operator Relationship Specialty Start Date End Date Vlad Gonzales MD [address] [place] [address] PCP - General Family Practice 02/22/18
--- OUTSIDE RECORDS SUMMARY | 2024-12-28 07:36 | XMS_ITS | Clinical Summary ---
Author Organization [facility] Address [address] [place] [address] Care Team Providers Care Nitric Acid Plant Operator Name Role Phone Ja Hendricks MD Primary Care Provider [phone] Source Comments [facility],non-owned Affiliates and Associated Physician Practices is amultiple site organization consisting of ambulatory clinics and hospital sitesin [place], [place], [place] and [place]. This disclosure is being madepursuant to the Care Everywhere program and may not contain all information available regarding this patient. Last updated 18.[facility] Allergies No known active allergies Medications * Be aware that medications may not be up to date on this document. Alwaysverify current medications with the patient. albuterol HFA (Proventil; Ventolin; Proair) 108 (90 Base) MCG/ACT inhaler INHALE 1 TO 2 PUFFS BY MOUTH EVERY 4 HOURS NEEDED Active albuterol (Proventil;Vent jimi) (2.5 MG/3ML) 0.083% nebulizer solution USE 1 VIAL VIA NEBULIZER THREE TIMES DAILY NEEDED 4 Active Active Problems Problem Noted Date Diagnosed Date Impingement syndrome of left shoulder 09/18/2021 Neuropathic pain of forearm, right 02/24/2018 Other specified epidermal thickening 10/06/2017 Rash and other nonspecific skin eruption 018 Other seborrheic dermatitis 10/06/2017 Acne vulgaris 10/04/2017 Exposure to sexually transmitted disease (STD) 0 02/22/2017 Cervical high risk human pap illomavirus (HPV) DNA test positive 01/04/2017 Gonococcal cervicitis 01/04/2017 Acute vaginitis 09/16/2016 test negative 09/16/2016 History of gestational diabetes mellitus 015 Transient hypertension of pr egnancy, with delivery, with current complication 03/01/2014 Delivery normal 02/22/2014 Single live 02/22/2014 Primigravida 02/14/2014 Abnormal glucose tolerance t est (GTT) during , antepartum 02/05/2014 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 screening for rais ed alpha-fetoprotein levels in amniotic fluid 10/19/2013 Screening for malignant neoplasm of cervix 08/29 Family History Medical History Relation Name Comments CAD (Coronary Artery Disease) Father Diabetes - Type 2 Father Diabetes - Type 2 Maternal Grandfather Diabetes - Type 2 Maternal Grandmother Cancer - Breast Paternal Grandmother Cancer - Skin, Non Melanoma Paternal Grandmother Diabetes - Type 2 Paternal Grandmother CVA Neg Hx Cancer - Other Neg Hx Cancer - Skin, Melanoma Neg Hx Eczema Neg Hx Hemophilia Neg Hx Psoriasis Neg Hx Relation Name Status Comments Father Maternal Grandfather Maternal Grandmother Paternal Grandmother Social History Tobacco Use Types Packs/Day Years Used Date Smoking Tobacco: Former Cigarettes Smokeless Tobacco: Never Tobacco Cessation:Counseling Given: Not Answered Alcohol Use Standard Drinks/Week Comments No 0 (1 standard drink = 0.6 oz pur e alcohol) Comments No Sex and Gender Information Value Date Recorded Sex Assigned at Not on file Legal Sex Female 5:33 AM DIRECTOR OF PUPIL PERSONNEL PROGRAM Gender Identity Not on file Sexual Orientation Not on file Last Filed Vital Signs Vital Sign Reading Time Taken Comments Blood Pressure 128/80 02/06/2024 10:41 AM CDT Pulse 74 02/06/2024 10:41 AM CDT Temperature 36.6 C (97.9 F) 02/06/2024 10:41 AM CDT Respiratory Rate 18 05/16/2022 3:06 PM CDT Oxygen Saturation 98% 02/06/2024 10:41 AM CDT Inhaled Oxygen Concentration - - Weight 95.1 kg (209 lb 9.6 oz) 02/06/2024 10:41 AM CDT Height 157.5 cm (5' 2) 02/06/2024 10:41 AM CDT Body Mass Index 38.34 02/06/2024 10:41 AM CDT Plan of Treatment Health Maintenance Due Date Last Done Comments HIV SCREENING 2000 DTAP/TDAP/TD VACCINES (1 - Tdap) 2004 HEPATITIS B VACCINE (1 of 3 - 19+ 3-dose series) 2004 PAP SMEAR 2006 PAP with HPV 2015 COVID-19 VACCINE (1 - 2023-2 5 season) 2024 DEPRESSION SCREENING 07/18/2024 INFLUENZA VACCINE (Season Ended) 2025 ZOSTER VACCINE (1 of 2) 2035 HEPATITIS C SCREENING Completed 10/22/2017 HIB VACCINE Aged Out No longer eligi ble based on patient's age to complete this topic HPV VACCINE Aged Out No longer eligi ble based on patient's age to complete this topic MENINGOCOCCAL (Group B) VACC INE SHARED DECISION-MAKING Aged Out No longer eligibl e based on patient's age to complete this topic MENINGOCOCCAL GROUPS A/C/Y/W VACCINE Aged Out No longer eligible b ased on patient's age to complete this topic PNEUMOCOCCAL VACCINE Aged Out No long er eligible based on patient's age to complete this topic Procedures Procedure Name Priority Date/Time Associated Diagnosis Comments HEPATITIS C AB W/RFLX TO HCV RNA QN PCR 10/22/2017 8:51 AM CDT from Last 3 Months or Most Recently Relevant to Health Maintenance Results * HEPATITIS C AB W/RFLX TO HCV RNA QN PCR (10/22/2017 8:51 AM CDT) Hepatitis C Antibody NON-REACTI VE NON-REACT [facility] Signal to Cut-Off 0.01 <1.00 [facility] Comment: Test Performed at: [facility] [id number] [place] [id number] BENITEZ CAT DO,MPH 10/22/2017 8:51 AM CDT 10/22/2017 8:53 AM CDT Ana Paula York MD LAB - CHEMISTRY ORDERA BLES Final Result [facility] [address] [place] [address] from Last 3 Months or Most Recently Relevant to Health Maintenance Insurance [place] [address] [employer] Care Teams Nitric Acid Plant Operator Relationship Specialty Start Date End Date Ja Hendricks MD [address] [place] [address] PCP - General 06/08/21
--- OUTSIDE RECORDS SUMMARY | 2024-12-28 07:36 | XMS_ITS | Referral Summary ---
Author Organization [facility] [address] Address [facility] [place] [address] Care Team Providers Care Tool And Die Maker Name Role Phone Ja Hendricks MD Primary Care Provider [phone] Patience Coyle ENGINEERING INSTRUCTOR Unavailable Allergies No known active allergies Medications albuterol 2.5 mg /3 mL (0.083 %) nebulizer solution USE 1 VIAL VIA NEBULIZER THREE TIMES DAILY NEEDED 4 Active albuterol HFA (PROVENTIL HFA,VENTOLIN HFA,PROAIR HFA) 90 mcg/actuation inhaler Inhale 2 puffs every 6 (six) hours as needed 1 Active amitriptyline (ELAVIL) 25 mg tablet Take 1 tablet (25 mg total) by mouth nightly at bedtime 4 Active ammonium lactate (AMLACTIN) 12 % cream Apply to arms daily. 30 DS. 1 Active cholestyramine (QUESTRAN) 4 gram powder MIX 4 GRAMS DIRECTED TWICE DAILY FOR 30 DAYS. ADMINISTER WITH A MEAL AND AVOID OTHER MEDS 1 HR BEFORE OR 4-6 HOURS AFTER DOSE 4 Active dicyclomine (BENTYL) 20 mg tablet 8 Active hydroxychloroquine (PLAQUENIL) 200 mg tablet Take 1 tablet (200 mg total) by mouth 2 (two) times a day 3 Active ketoconazole (NIZORAL) 2 % shampoo 8 Active metoprolol XL (TOPROL-XL) 25 mg extended release tablet Take 0.5 tablets (12.5 mg total) by mouth daily Active metoprolol tartrate (LOPRESSOR) 50 mg immediate release tablet Take 2 tablets by mouth 2 hours prior to test, bring the last tablet with you. 2 Active mometasone (ELOCON) 0.1 % cream Apply to rash on face twice daily. 30 DS. 1 Active montelukast (SINGULAIR) 10 mg tablet 4 Active omeprazole (PriLOSEC) 40 mg capsule Take 1 capsule (40 mg total) by mouth daily 4 Active ondansetron ODT (ZOFRAN-ODT) 4 mg disintegrating tablet DISSOLVE 1 TABLET ON THE TONGUE EVERY 8 HOURS NEEDED FOR NAUSEA OR VOMITING 4 Active phentermine 37.5 mg capsule 8 Active vit-iron fum-folic ac 28 mg iron- 800 mcg tablet Take 1 tablet by mouth daily 8 Active spironolactone (ALDACTONE) 100 mg tablet Take 1 tablet (100 mg total) by mouth daily 8 Active Active Problems Problem Noted Date Diagnosed Date Impingement syndrome of left shoulder 09/18/2021 Neuropathic pain of forearm, right 02/24/2018 Other seborrheic dermatitis 10/06/2017 Other specified epidermal thickening 10/06/2017 Rash and other nonspecific skin eruption 018 Acne vulgaris 10/04/2017 Cervical high risk human pap illomavirus (HPV) DNA test positive 01/04/2017 Gonococcal cervicitis 01/04/2017 Acute vaginitis 09/16/2016 Transient hypertension of pr egnancy, with delivery, with current complication 03/01/2014 Delivery normal 02/22/2014 Abnormal glucose tolerance t est (GTT) during , antepartum 02/05/2014 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 Social History Tobacco Use Types Packs/Day Years Used Date Smoking Tobacco: Never Cigarettes Smokeless Tobacco: Never Tobacco Cessation:Counseling Given: Not Answered Personal Safety Answer Date Recorded Getting School Help Needed Not on file 07/24 Comments Unknown Sex and Gender Information Value Date Recorded Sex Assigned at Not on file Legal Sex Female 9:58 AM RESIDENTIAL PROGRAM COORDINATOR Gender Identity Not on file Sexual Orientation Not on file Last Filed Vital Signs Vital Sign Reading Time Taken Comments Blood Pressure 114/86 10/14/2023 2:20 PM CDT Pulse 79 10/14/2023 2:20 PM CDT Temperature 36.9 C (98.4 F) 10/14/2023 2:20 PM CDT Respiratory Rate 18 10/14/2023 2:20 PM CDT Oxygen Saturation 98% 10/14/2023 2:20 PM CDT Inhaled Oxygen Concentration - - Weight 104.3 kg (230 lb) 10/14/2023 2:20 PM CDT Height 157.5 cm (5' 2) 10/14/2023 2:20 PM CDT Body Mass Index 42.07 10/14/2023 2:20 PM CDT Plan of Treatment Not on file [place] [employer] [place] [place] Care Teams Tool And Die Maker Relationship Specialty Start Date End Date Ja Hendricks MD PCP - General Internal Medicine 10/14/23 [place] [address] [place] [address] Nurse Practitioner 11/21/24
--- OUTSIDE RECORDS SUMMARY | 2024-12-28 07:36 | XMS_ITS | Clinical Summary ---
Author Organization [facility] [address] Address [facility] [place] [address] Care Team Providers Care Head Of Digital Advertising & Integration Name Role Phone Ja Hendricks MD Primary Care Provider [phone] Patience Coyle CLAIMS ANALYST Unavailable Allergies No known active allergies Medications [...] during , antepartum 02/05/2014 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 Medical History Medical History Date Comments Autoimmune disease Lupus Social History Tobacco Use Types Packs/Day Years Used Date Smoking Tobacco: Never Cigarettes Smokeless Tobacco: Never Tobacco Cessation:Counseling Given: Not Answered Personal Safety Answer Date Recorded Getting School Help Needed Not on file 07/24 Comments Unknown Sex and Gender Information Value Date Recorded Sex Assigned at Not on file Legal Sex Female 9:58 AM PRECIPITATOR SUPERVISOR Gender Identity Not on file Sexual Orientation Not on file Obstetrics History Last Filed Vital Signs Vital Sign Reading [...] 10/14/2023 2:20 PM CDT Plan of Treatment Health Maintenance Due Date Last Done Comments Cervical Cancer Screening 1985 Depression Screening 1985 Hepatitis C Screening 1985 DTaP/Tdap/Td Vaccine (1 - Tdap) 1996 Varicella Vaccines (1 of 2 - 13+ 2-dose series) 1998 Hepatitis B Screening 2003 Regular Well Visit/Exam 18-64 2003 Pneumococcal vaccine <65 (1 of 2 - PCV) 2004 Zoster Vaccine (1 of 2) 2004 Influenza Vaccine (Season Ended) 2025 HPV Vaccines Aged Out No longer eligi ble based on patient's age to complete this topic Insurance [facility] Care Teams Head Of Digital Advertising & Integration Relationship Specialty Start Date End Date Ja Hendricks MD PCP - General Internal Medicine 10/14/23 [place] [address] [place] [address] Nurse Practitioner 11/21/24
--- OUTSIDE RECORDS SUMMARY | 2024-12-28 07:36 | XMS_ITS | Clinical Summary ---
Author Organization [facility] Address [address] [place] [address] Phone Care Team Providers Care Termite Control Technician Name Role Phone Ja Hendricks MD Primary Care Provider [phone] Allergies No known active allergies Medications hydroxychloroqui ne (PLAQUENIL) 200 MG Tablet Take 200 mg by mouth 2 times daily. Active albuterol 108 (90 Base) MCG/ACT Aerosol Solution take 2 Puffs by inhalation every 6 hours as needed for Cough. 6.7 g 1 Active traMADol (ULTRAM) 50 MG TabletIndication s:Cervical strain, acute, initial encounter Take 1 Tablet by mouth every 8 hours as needed for Moderate or more severe pain. 12 Tablet 1 Active pantoprazole (PROTONIX) 40 MG Tablet Delayed Response Take 1 Tablet by mouth daily. 30 Tablet 5 Active traMADol (ULTRAM) 50 MG TabletIndication s:Chest pain, unspecified type Take 1-2 Tablets by mouth every 6 hours as needed for Severe pain. 12 Tablet 5 Active Encounters Date Type Department Care Team Description 12/21/2024 9:57 PM CDT - 12/21/2024 11:53 PM CDT [facility] [address] [place] [address] Oli Miranda MD Chest pain, unspecified type Discharge Disposition: Discharged to home or Selfcare 12/21/2024 Travel from Last 3 Months Social History Tobacco Use Types Packs/Day Years Used Date Smoking Tobacco: Former Smokeless Tobacco: Never Alcohol Use Standard Drinks/Week Comments Not Currently 0 (1 standard drink = 0.6 oz pur e alcohol) Comments No Sex and Gender Information Value Date Recorded Sex Assigned at Not on file Legal Sex Female 12:35 AM CDT Gender Identity Not on file Sexual Orientation Not on file Last Filed Vital Signs Vital Sign Reading Time Taken Comments Blood Pressure 101/87 12/21/2024 11:42 PM CDT Pulse 66 12/21/2024 11:45 PM CDT Temperature 36 C (96.8 F) 12/21/2024 9:54 PM CDT Respiratory Rate 19 12/21/2024 11:45 PM CDT Oxygen Saturation 97% 12/21/2024 11:45 PM CDT Inhaled Oxygen Concentration - - Weight 99.8 kg (220 lb) 12/21/2024 9:54 PM CDT Height 157.5 cm (5' 2) 12/21/2024 9:54 PM CDT Body Mass Index 40.24 12/21/2024 9:54 PM CDT Plan of Treatment Health Maintenance Due Date Last Done Comments Hepatitis C Virus (HCV) Screening 1985 TdaP Immunization 1985 SARS-COV-2 Immunization (#1) 1990 Human Papillomavirus (HPV) Immunization (1 - 3-dose series) 2000 Hepatitis B Immunization (1 of 3 - 19+ 3-dose series) 2004 Pap Smear 2006 Cervical Cancer Screening (CCS) 2015 HPV/Cotest 2015 Influenza Immunization (Seas on Ended) 2025 Respiratory Syncytial Virus (RSV) Immunization (Adult) (1 - 1-dose 75+ series) 2060 Meningococcal Immunization (ACWY) Aged Out No longer eligible based on patient's age to complete this topic Pneumococcal Immunization Combined Aged Out No longer eligible based on patient's age to complete this topic Rotavirus Immunization Aged Out No lo nger eligible based on patient's age to complete this topic Procedures Procedure Name Priority Date/Time Associated Diagnosis Comments XR CHEST SINGLE VIEW PORTABLE STAT 12/21/2024 11:22 PM CDT CBC WITH AUTO DIFFERENTIAL STAT 12/21/2024 10:12 PM CDT TROPONIN I, HIGH SENSITIVITY (HSTRP) STAT 12/21/2024 10:12 PM CDT CMP (COMPREHENSIVE METABOLIC PANEL) STAT 12/21/2024 10:12 PM CDT COMPLETE BLOOD COUNT (CBC) WITH DIFF STAT 12/21/2024 10:12 PM CDT EKG 12 LEAD STAT 12/21/2024 9:57 PM CDT EKG SCAN 12/21/2024 12:00 AM CDT from Last 3 Months Results * XR CHEST SINGLE VIEW PORTABLE (12/21/2024 11:22 PM CDT) Anatomical Region Laterality Modality Chest N/A Computed Radiogr aphy 12/21/2024 11:2 6 PM CDT Impressions 12/21/2024 11:29 PM CDT IMPRESSION: No acute cardiopulmonary abnormality. Narrative 12/21/2024 11:29 PM CDT EXAM DESCRIPTION: XR CHEST SINGLE VIEW PORTABLE REASON FOR STUDY: Chest pain TECHNIQUE: Single radiographic view(s) of the chest. COMPARISON: 05/15/2022 FINDINGS: LUNGS: Allowing for overlying soft tissues, the lungs appear grossly clear. No consolidation or effusion is seen. HEART/MEDIASTINUM: Cardiac silhouette normal in size. Mediastinal and hilar contours appear normal. LINES/TUBES: None. BONES: No acute osseous abnormality. THIS IS AN ELECTRONICALLY VERIFIED FINAL REPORT 12/21/2024 11:26 PM - Electronically signed by Akin Johnson M.D. KH: SHELBY Report ID: [id number] Reading Location: [id number] Procedure Note Akin Johnson MD - 12/21/2024 EXAM DESCRIPTION: XR CHEST SINGLE VIEW PORTABLE REASON FOR STUDY: Chest pain TECHNIQUE: Single radiographic view(s) of the chest. COMPARISON: 05/15/2022 FINDINGS: LUNGS: Allowing for overlying soft tissues, the lungs appear grossly clear. No consolidation or effusion is seen. HEART/MEDIASTINUM: Cardiac silhouette normal in size. Mediastinal and hilar contours appear normal. LINES/TUBES: None. BONES: No acute osseous abnormality. THIS IS AN ELECTRONICALLY VERIFIED FINAL REPORT 12/21/2024 11:26 PM - Electronically signed by Akin Johnson M.D. KH: SHELBY Report ID: [id number] Reading Location: [place] [address] IMPRESSION: No acute cardiopulmonary abnormality. Oli Miranda MD IMG DIAGNOSTIC ORDERABLES Final Result * TROPONIN I, HIGH SENSITIVITY (HSTRP) (12/21/2024 10:12 PM CDT) [facility] TROPONIN I, HIGH SENSITIVITY- [facility] <3 <=14 ng/L 12/21/2024 11:26 PM CDT [facility] Comment: High-sensitivity troponin I results are reported in ng/L making the result appear to be 1,000 times higher than the contemporary troponin I value which is reported in ng/ml. Results from [place]. Blood Venipuncture / Unknown 12/21/2024 10:12 PM CDT 12/21/2024 11:02 PM CDT Oli Miranda MD CHEMISTRY ORDERABLES Final Result [facility] [address] [place] [address] * (ABNORMAL) CBC with Auto Differential (12/21/2024 10:12 PM CDT) Pathologist [facility] WBC 7.80 4.00 - 12.00 10(3)/mcL 12/21/2024 11:04 PM CDT [facility] RBC 4.57 3.80 - 5.30 10(6)/mcL 12/21/2024 11:04 PM CDT [facility] HEMOGLOBIN (HGB) 13.7 12.0 - 15.8 g/dL 12/21/2024 11:04 PM CDT [facility] HEMATOCRIT (HCT) 40.2 36.0 - 47.0 % 12/21/2024 11:04 PM CDT [facility] MCV 88.0 82.0 - 96.0 fL 12/21/2024 11:04 PM CDT [facility] MCH 30.0 26.0 - 34.0 pg 12/21/2024 11:04 PM CDT [facility] MCHC 34.1 31.0 - 36.0 g/dL 12/21/2024 11:04 PM CDT [facility] PLATELET COUNT 300 140 - 440 10(3)/mcL 12/21/2024 11:04 PM CDT [facility] RDW 11.9 11.8 - 15.5 % 12/21/2024 11:04 PM CDT [facility] MPV 9.0(L) 9.7 - 12.4 fL 12/21/2024 11:04 PM CDT [facility] NEUTROPHILS 54.4 47.0 - 73.0 % 12/21/2024 11:04 PM CDT [facility] LYMPHOCYTES 34.9 18.0 - 42.0 % 12/21/2024 11:04 PM CDT [facility] MONOCYTES 8.2 4.0 - 12.0 % 12/21/2024 11:04 PM CDT [facility] EOSINOPHILS 2.2 0.0 - 5.0 % 12/21/2024 11:04 PM CDT [facility] BASOPHILS 0.3 0.0 - 1.0 % 12/21/2024 11:04 PM CDT [facility] ABSOLUTE NEUTROPHILS 4.25 1.60 - 7.70 10(3)/mcL 12/21/2024 11:04 PM CDT [facility] ABSOLUTE LYMPHOCYTES 2.72 1.30 - 3.20 10(3)/mcL 12/21/2024 11:04 PM CDT [facility] ABSOLUTE MONOCYTES 0.64 0.20 - 1.00 10(3)/mcL 12/21/2024 11:04 PM CDT [facility] ABSOLUTE EOSINOPHIL 0.17 0.00 - 0.40 10(3)/mcL 12/21/2024 11:04 PM CDT [facility] ABSOLUTE BASOPHILS 0.02 0.00 - 0.10 10(3)/mcL 12/21/2024 11:04 PM CDT [facility] NRBC PER 100 WBC 0 12/22/19 11:04 PM CDT [facility] Blood Venipuncture / Unknown 12/21/2024 10:12 PM CDT 12/21/2024 11:02 PM CDT us Oli Miranda MD HEMATOLOGY ORDERABLES Loreto l Result [facility] [address] [place] [address] * (ABNORMAL) CMP (12/21/2024 10:12 PM CDT) SODIUM 141 136 - 145 mmol/L 12/21/2024 11:24 PM CDT [facility] POTASSIUM 3.8 3.5 - 5.1 mmol/L 12/21/2024 11:24 PM CDT [facility] CHLORIDE 108(H) 98 - 107 mmol/L 12/21/2024 11:24 PM CDT [facility] CO2, VENOUS 24 22 - 30 mmol/L 12/21/2024 11:24 PM CDT [facility] ANION GAP 12.8 <18.0 mmol/L 12/21/2024 11:24 PM CDT [facility] GLUCOSE 88 70 - 99 mg/dL 12/21/2024 11:24 PM CDT [facility] BUN 18 5 - 18 mg/dL 12/21/2024 11:24 PM CDT [facility] CREATININE, BLOOD 0.80 0.60 - 1.00 mg/dL 12/21/2024 11:24 PM [facility] BUN/CREATININE RATIO 23(H) 12 - 20 ratio 12/21/2024 11:24 PM [facility] TOTAL PROTEIN 7.4 6.0 - 8.0 g/dL 12/21/2024 11:24 PM T [facility] ALBUMIN 4.5 3.5 - 5.0 g/dL 12/21/2024 11:24 PM [facility] A/G RATIO 1.6 1.0 - 2.2 12/21/2024 11:24 PM [facility] CALCIUM 9.0 8.7 - 10.5 mg/dL 12/21/2024 11:24 PM [facility] T BILI 0.7 0.2 - 1.2 mg/dL 12/21/2024 11:24 PM [facility] SGOT (AST) 22 <43 U/L 12/21/2024 11:24 PM [facility] SGPT (ALT) 20 <56 U/L 12/21/2024 11:24 PM [facility] ALKALINE PHOSPHATASE 60 40 - 150 U/L 12/21/2024 11:24 PM [facility] GFR, ESTIMATED >60 >=60 12/21/2024 11:24 PM [facility] Comment: Creatinine Clearance is the preferred criteria for selecting drug dose adjustments in renally impaired patients. The GFR is provided as additional pertinent clinical information. GFR is reported in mL/min/1.73 sq m. Calculation based on the Chronic Kidney Disease Epidemiology Collaboration (CKD- EPI) equation refit without adjustment for race. GFR, EST. >60 >=60 025 11:24 PM [facility] GFR, EST. NONAFRICAN >60 >=60 12/21/2024 11:24 PM [facility] Blood Venipuncture / Unknown 12/21/2024 10:12 PM CDT 12/21/2024 11:02 PM CDT us Oli Miranda MD CHEMISTRY ORDERABLES Final Result Performing Organization Address City/[facility]/ZIP Co de Phone Number [facility] [address] [place] [address] * EKG 12 LEAD (12/21/2024 9:57 PM CDT) Ventricular Rate 89 BPM EXTERNAL EKG Atrial Rate 89 BPM EXTERNAL EKG P-R Interval 144 ms EXTERNAL EKG QRS Duration 76 ms EXTERNAL EKG Q-T Duration 348 ms EXTERNAL EKG QTC CALCULATION 423 ms EXTERNAL EKG P [place] 64 degrees EXTERNAL EKG R [place] 52 degrees EXTERNAL EKG T [place] 22 degrees EXTERNAL EKG 12/21/2024 9:57 PM CDT Impressions EXTERNAL EKG - 12/24/2024 9:19 AM CDT Normal sinus rhythm Cannot rule out Anterior infarct , age undetermined Abnormal ECG When compared with ECG of 17-MAY-2022 22:40, No significant change was found ~ Confirmed by Vic Bullard ([id number]) on 12/24/2024 9:19:25 AM Narrative Procedure Note Vic Bullard MD - 12/24/2024 IMPRESSION: Normal sinus rhythm Cannot rule out Anterior infarct , age undetermined Abnormal ECG When compared with ECG of 17-MAY-2022 22:40, No significant change was found ~ Confirmed by Vic Bullard ([id number]) on 12/24/2024 9:19:25 AM us Oli Miranda MD IMG ECG ORDERABLES Final R esult EXTERNAL EKG * EKG SCAN (12/21/2024 12:00 AM CDT) 12/21/2024 us Provider Scan IMG ECG ORDERABLES Final Result RESULTING AGENCY from Last 3 Months [facility] Care Teams Termite Control Technician Relationship Specialty Start Date End Date Ja Hendricks MD [address] [place], [place] [id number] PCP - General Internal Medicine 06/13/21
--- OUTSIDE RECORDS SUMMARY | 2024-12-28 07:36 | XMS_ITS | Encounter Summary ---
Author Organization [facility] Address [address] [address] Care Team Providers Care Insole Channeler Name Role Phone Ja Hendricks MD Primary Care Provider [phone] Reason for Visit * Reason Onset Date Comments Nurse Only 07/28/2023 Encounter Details Date Type Department Care Team (Late st Contact Info) Description 07/28/2023 Telephone [facility] - Dermatology [address] [place] [address], [facility] [place] [address] Jeanine uCmmins MD [address] [place] [address] [address] [place] [address] Nurse Only Social History Tobacco Use Types Packs/Day Years Used Date Smoking Tobacco: Former Cigarettes Smokeless Tobacco: Never Alcohol Use Standard Drinks/Week Comments No 0 (1 standard drink = 0.6 oz pur e alcohol) Comments Unknown Sex and Gender Information Value Date Recorded Sex Assigned at Not on file Legal Sex Female 5:33 AM ENTERPRISE SALES EXECUTIVE Gender Identity Not on file Sexual Orientation Not on file documented as of this encounter Miscellaneous Notes * Telephone Encounter - Jeanine Cummins MD - 07/29/2023 10:32 AM ENTERPRISE SALES EXECUTIVE New referral order placed by Dr. Chavez on 07/28/23. RPRISE SALES EXECUTIVE * Telephone Encounter - López Sanabria - 07/28/2023 2:46 PM CST Pt states she needs a new referral from Derm to [facility]. She has an appt on 08/08 and provider states she needs a new referral for 2023 RPRISE SALES EXECUTIVE documented in this encounter Plan of Treatment Not on file documented as of this encounter Visit Diagnoses Not on filedocumented in this encounter Care Teams Insole Channeler Relationship Specialty Start Date End Date Ja Hendricks MD [address] [place], [place] [id number] PCP - General 06/08/21 documented as of this encounter
--- OUTSIDE RECORDS SUMMARY | 2024-12-28 07:36 | XMS_ITS | Data Portability ---
Author Organization [facility] [place] [place] Address [address] [place] [address] Assessment Encounter Date Assessment Date Assessment LastModified by Organization Details LastModified Time 05/22/2021 05/22/2021 Annual gynecological exam performed. Patient will come back in a year unless there are new symptoms. [email or web address] Not available 05/22/2021 13:21:53 Plan of Treatment Reminders Order Date Submit Date Provider Last Modified By Organization Details Last Modified Time Details Appointments None recorded. Lab 17-hydroxyp rogesterone , QN, serum 2020 021 [facility] (Lab), [address] [place], [address], 1 00:42:09 dhea-sulfat e, serum 2020 021 [facility] (Lab), [address] [place], [address], 1 00:42:04 estradiol, serum 2020 021 [facility] (Lab), [address] [place], [address], 1 00:42:06 FSH (follicle-s timulating hormone), serum 2020 021 [facility] (Lab), [address], [place], [address], 1 00:42:06 HbA1c (hemoglobin A1c), blood 2020 [facility] (Lab), [address], [place], [address], 1 00:42:08 lh (luteinizin g hormone), serum 2020 [facility] (Lab), [address], [place], [address], 1 00:42:05 progesteron e, serum 2020 [facility] (Lab), [address] [place], [address], 1 00:42:07 prolactin, serum 2020 [facility] (Lab), [address] [place], [address], 1 00:42:07 shbg (sex hormone-bin ding globulin), serum 2020 [facility] (Lab), [address] [place], [address], 1 00:42:08 TSH, serum or plasma 2020 [facility] (Lab), [address] [place], [address], 1 00:42:08 testosteron e free/testos terone total, ratio, serum 2020 [facility] (Lab), [address] [place], [address], 1 00:42:09 CBC w/ auto diff 2020 [facility] (Lab), [address] [place], [address], 1 00:42:03 CMP, serum or plasma 2020 [facility] (Lab), [address], [place], [address], 1 00:42:05 lipid panel, blood 2020 [facility] (Lab), [address], [place], [address], 1 00:42:04 TSH, serum or plasma [address] (Lab), [address], [place], [address], 13:57:41 vitamin D, 25-hydroxy, total, serum 2020 [facility] (Lab), [address], [place], [address], 00:42:06 Referral None recorded. Procedures None recorded. Surgeries None recorded. Imaging US, pelvis [address], [address], [place], [address], 15:10:11 US, transvagina l 2020 [address], [address], [place], [address], 15:10:11 Medication Orders None recorded. Patient TargetsNo targets recorded. Patient InstructionsNo instructions recorded. Reason for Referral None Reported. Results Created Date Observation Date Name Description Value Unit Range Abnormal Flag Note LastModifiedBy Organization Detail LastModifiedTime 05/22/20 21 05/22/2021 IMAGE GUIDE D PAP AND HPV REGAR DLESS image guided Pap, HPV regardless of Pap result SEE RESULT S BELOW CASE REPOR T: Cytol ogy Gynec ologi josefa Repor t Case: [id number] Autho sabra perez Provi ramon: Cody Vazquez MD Colle cted: 05/22 1326 Order ing Locat ion: [place] [facility] Recei hal: 05/23 0023 First Scree n: Karen Boykin , CT Rescr een: Jennie silvestre, Seferino saini, CT Speci men: Scree deborah Pap - Image d, Cervi x STATE MENT OF ADEQU ACY: Satis facto ry for evalu ation Trans forma tion zone compo nent prese nt FINAL DIAGN OSIS: Negat odalys for Intra epith elial Lesio n or Maddy curtis (NIL) . Elect kristen franklin alison d by Jennie silvestre, Seferino saini, CT on 05/29 at 4:10 PM ----- ----- ----- ----- ----- ----- ----- ----- ----- ----- ----- ----- ----- ----- ----- ----- ----- ---- HPV RESUL TS: HPV mRNA E6/E7 : No HPV mRNA Detec malinda NOTE: This high risk HPV mRNA assay detec ts fourt een high- risk HPV types (16, 18, 31, 33, 35, 39, 45, 51, 52, 56, 58, 59, 66, 68) witho ut diffe renti ation . COMME NT: Note: This speci men was revie wed by a Cytot echno logis t and/o r Patho logis t (as indic ated in this repor t) after evalu ation using the Thinp rep Imagi ng Syste m. CLINI OJSEFA INFOR MATIO N: Menst rual Statu s: LMP (if appli cable ): Clini josefa Histo ry/Pr eviou s Pap: Type of Neopl ladi (if appli cable ): Signi fican t Clini josefa Findi ngs: Other Histo ry: Hormo handy (if appli cable ): PAP EDUCA TON L NOTE: The Pap Test is a scree deborah test with an inher ent false negat odalys rate. Liqui d-bas e sampl ing may decre ase, but will not elimi my, false negat odalys resul ts. A negat odalys resul t does not precl ude the prese nce and/o r devel opmen t of disea se, since the prese nce of abnor mal cells in the sampl e depen ds on the locat ion of the lesio n and sampl ing techn ique. Zachariah nued regul ar scree deborah is the best metho d of cance r preve ntion . If repor malinda cytol ogic findi ng do not corre late with physi josefa and/o r histo rical findi ngs, furth er inves tigat ion is recom cathy d, as clini ritika yost nted. Not Available [facility] (Lab) [address] , [place], [address], 05/29/2021 17:12:23 05/26/20 21 05/26/2021 CBC W/DIF F WBC 5.3 10'3/ uL 3.6-10 .2 Not Available [facility] (Lab) [address], [place], [address], 06/01/2021 00:42:03 05/26/20 21 05/26/2021 CBC W/DIF F RBC 4.60 10'6/ uL (based on docume nted legal sex) 4.10-5 .30 Not Available [facility] (Lab) [address] , [place], [address], 06/01/2021 00:42:03 05/26/20 21 05/26/2021 CBC W/DIF F HGB 13.7 g/dL (based on docume nted legal sex) 11.9-1 5.8 Not Available [facility] (Lab) [address], [place], [address], 06/01/2021 00:42:03 05/26/20 21 05/26/2021 CBC W/DIF F HCT 42.7 % (based on docume nted legal sex) 37.4-4 8.3 Not Available [facility] (Lab) [address], [place], [address], 06/01/2021 00:42:03 05/26/20 21 05/26/2021 CBC W/DIF F MCV 92.0 fL 82.0-9 9.0 Not Available [facility] (Lab) [address], [place], [address], 06/01/2021 00:42:03 05/26/20 21 05/26/2021 CBC W/DIF F MCH 30.0 pg 27.0-3 3.0 Not Available [facility] (Lab) [address], [place], [address], 06/01/2021 00:42:03 05/26/20 21 05/26/2021 CBC W/DIF F MCHC 32.0 g/dL 32.0-3 6.0 Not Available [facility] (Lab) [address], [place], [address], 06/01/2021 00:42:03 05/26/20 21 05/26/2021 CBC W/DIF F RDW 13.0 % 11.0-1 5.0 Not Available [facility] (Lab) [address], [place], [address], 06/01/2021 00:42:03 05/26/20 21 05/26/2021 CBC W/DIF F plt 278 10'3/ uL 150-45 0 Not Available [facility] (Lab) [address], [place], [address], 06/01/2021 00:42:03 05/26/20 21 05/26/2021 CBC W/DIF F MPV 10.0 fL 9.8-12 .7 Not Available [facility] (Lab) [address], [place], [address], 06/01/2021 00:42:03 11/09/20 21 05/26/2021 CBC W/DIF F NRBC's 0.00 % 0 Not Available [facility] (Lab) [address], [place], [address], 06/01/2021 00:42:03 05/26/20 21 05/26/2021 CBC W/DIF F absolute NRBCs 0.0 10'3/ uL 0 Not Available [facility] (Lab) [address], [place], [address], 06/01/2021 00:42:03 05/26/20 21 05/26/2021 CBC W/DIF F neutrophils 60.0 % 37.0-7 2.0 Not Available [facility] (Lab) [address], [place], [address], 06/01/2021 00:42:03 05/26/20 21 05/26/2021 CBC W/DIF F lymphocytes 30.0 % 16.0-4 8.0 Not Available [facility] (Lab) [address], [place], [address], 06/01/2021 00:42:03 05/26/20 21 05/26/2021 CBC W/DIF F monocytes 8.0 % 4.0-14 .0 Not Available [facility] (Lab) [address], [place], [address], 06/01/2021 00:42:03 05/26/20 21 05/26/2021 CBC W/DIF F eosinophils 2.0 % 0.0-9. 0 Not Available [facility] (Lab) [address], [place], [address], 06/01/2021 00:42:03 05/26/20 21 05/26/2021 CBC W/DIF F basophils 0.0 % 0.0-2. 0 Not Available [facility] (Lab) [address], [place], [address], 06/01/2021 00:42:03 05/26/20 21 05/26/2021 CBC W/DIF F immature granulocytes 0.0 % no define d refere nce range Not Available [facility] (Lab) [address], [place], [address], 06/01/2021 00:42:03 05/26/20 21 05/26/2021 CBC W/DIF F absolute neutrophils 3.2 10'3/ uL 1.1-6. 0 Not Available [facility] (Lab) [address], [place], [address], 06/01/2021 00:42:03 05/26/20 21 05/26/2021 CBC W/DIF F absolute lymphocytes 1.6 10'3/ uL 0.7-3. 4 Not Available [facility] (Lab) [address], [place], [address], 06/01/2021 00:42:03 05/26/20 21 05/26/2021 CBC W/DIF F absolute monocytes 0.4 10'3/ uL 0.3-1. 0 Not Available [facility] (Lab) [address], [place], [address], 06/01/2021 00:42:03 05/26/20 21 05/26/2021 CBC W/DIF F absolute eosinophils 0.1 10'3/ uL 0.0-0. 6 Not Available [facility] (Lab) [address], [place], [address], 06/01/2021 00:42:03 05/26/20 21 05/26/2021 CBC W/DIF F absolute basophils 0.0 10'3/ uL 0.0-0. 1 Not Available [facility] (Lab) [address], [place], [address], 06/01/2021 00:42:03 05/26/20 21 05/26/2021 CBC W/DIF F absolute immature granulocytes 0.00 10'3/ uL 0.00-0 .10 05/27 3:08 AM: P indic ates parti al resul ts on a panel have been relea sed. Addit ional resul ts will follo w. 05/27 3:08 AM: This resul t has been final verif ied. No addit ional or nelson ed resul ts are expec malinda. Not Available [facility] (Lab) [address], [place], [address], 06/01/2021 00:42:03 05/26/20 21 05/26/2021 DHEA SULFA TE DHEA-sulfate 271 ug/dL Femal e Range s Age(y ) Range (ug/d L) 10-15 34-28 0 15-20 65-36 8 20-25 148-4 07 25-35 99-34 0 35-45 61-33 7 45-55 35-25 6 55-65 19-20 5 65-75 9-246 > 75 12-15 4 Not Available [facility] (Lab) [address], [place], [address], 06/01/2021 00:42:04 05/26/20 21 05/26/2021 LIPID PANEL ,AMA (LDL- CALC) total cholesterol 178 mg/dL 0-199 Not Available [facility] (Lab) [address] [place], [address], 06/01/2021 00:42:04 05/26/20 21 05/26/2021 LIPID PANEL ,AMA (LDL- CALC) triglyceride s 138 mg/dL 0.00-1 50.00 NCEP Refer ence Value s for Trigl yceri jared: Monica l: <150 mg/dL Borde rline High: 150 - 199 mg/dL High: 200 - 499 mg/dL Very High: >/= 500 mg/dL Not Available [facility] (Lab) [address] [place], [address], 06/01/2021 00:42:04 05/26/20 21 05/26/2021 LIPID PANEL ,AMA (LDL- CALC) HDL cholesterol 37 mg/dL >40 low Not Available [facility] (Lab) [address] [place], [address], 06/01/2021 00:42:04 05/26/20 21 05/26/2021 LIPID PANEL ,AMA (LDL- CALC) LDL cholesterol 113 mg/dL 0-99 high Cutof f value s recom cathy d by the Natio nal Fior stero l Educa tion Progr am: JENNY ABLE: Fior stero l <200 mg/dL LDL <100 mg/dL BORDE RLINE : Fior stero l 200-2 39 mg/dL LDL 101-1 59 mg/dL HIGHE R RISK: Fior stero l >240 mg/dL LDL >160 mg/dL , HDL <40 mg/dL Not Available [facility] (Lab) [address] [place], [address], 06/01/2021 00:42:04 05/26/20 21 05/26/2021 LIPID PANEL ,AMA (LDL- CALC) non-HDL cholesterol 141 mg/dL no refere nce range A reaso nable goal for non-H DL fior stero l is one that is 30 mg/dL highe r than the LDL fior stero l goal. Not Available [facility] (Lab) [address] [place], [address], 06/01/2021 00:42:04 05/26/20 21 05/26/2021 LIPID PANEL ,AMA (LDL- CALC) chol/HDL ratio 4.8 . 0.0-5. 0 Not Available [facility] (Lab) [address] [place], [address], 06/01/2021 00:42:04 05/26/20 21 05/26/2021 CMP(C OMPRE HENSI VE METAB OLIC PANEL ) sodium 143 mmol/ L 133-14 6 Not Available [facility] (Lab) [address] [place], [address], 06/01/2021 00:42:05 05/26/20 21 05/26/2021 CMP(C OMPRE HENSI VE METAB OLIC PANEL ) potassium 4.3 mmol/ L 3.5-5. 1 Not Available [facility] (Lab) [address], [place], [address], 06/01/2021 00:42:05 05/26/20 21 05/26/2021 CMP(C OMPRE HENSI VE METAB OLIC PANEL ) chloride 105 mmol/ L 98-107 Not Available [facility] (Lab) [address], [place], [address], 06/01/2021 00:42:05 05/26/20 21 05/26/2021 CMP(C OMPRE HENSI VE METAB OLIC PANEL ) carbon dioxide 28 mmol/ L 21-31 Not Available [facility] (Lab) [address], [place], [address], 06/01/2021 00:42:05 05/26/20 21 05/26/2021 CMP(C OMPRE HENSI VE METAB OLIC PANEL ) anion gap 10 mmol/ L 4-13 Not Available [facility] (Lab) [address], [place], [address], 06/01/2021 00:42:05 05/26/20 21 05/26/2021 CMP(C OMPRE HENSI VE METAB OLIC PANEL ) blood urea nitrogen 15 mg/dL 7-25 Not Available [facility] (Lab) [address], [place], [address], 06/01/2021 00:42:05 05/26/20 21 05/26/2021 CMP(C OMPRE HENSI VE METAB OLIC PANEL ) creatinine 0.86 mg/dL 0.60-1 .30 Not Available [facility] (Lab) [address], [place], [address], 06/01/2021 00:42:05 05/26/20 21 05/26/2021 CMP(C OMPRE HENSI VE METAB OLIC PANEL ) egfrcr (CKD-epi 2020) 90 mL/mi n/1.7 3_m2 >=60 Not Available [facility] (Lab) [address], [place], [address], 06/01/2021 00:42:05 05/26/20 21 05/26/2021 CMP(C OMPRE HENSI VE METAB OLIC PANEL ) calcium 9.8 mg/dL 8.3-10 .5 Not Available [facility] (Lab) [address], [place], [address], 06/01/2021 00:42:05 05/26/20 21 05/26/2021 CMP(C OMPRE HENSI VE METAB OLIC PANEL ) glucose 89 mg/dL 70-100 Not Available [facility] (Lab) [address], [place], [address], 06/01/2021 00:42:05 05/26/20 21 05/26/2021 CMP(C OMPRE HENSI VE METAB OLIC PANEL ) protein, total 6.6 g/dL 6.4-8. 3 Not Available [facility] (Lab) [address], [place], [address], 06/01/2021 00:42:05 05/26/20 21 05/26/2021 CMP(C OMPRE HENSI VE METAB OLIC PANEL ) albumin 4.4 g/dL 3.5-5. 0 Not Available [facility] (Lab) [address] [place], [address], 06/01/2021 00:42:05 05/26/20 21 05/26/2021 CMP(C OMPRE HENSI VE METAB OLIC PANEL ) ALT 11 units /L 9-43 Not Available [facility] (Lab) [address] [place], [address], 06/01/2021 00:42:05 05/26/20 21 05/26/2021 CMP(C OMPRE HENSI VE METAB OLIC PANEL ) alkaline phosphatase 56 units /L 34-104 Not Available [facility] (Lab) [address], [place], [address], 06/01/2021 00:42:05 05/26/20 21 05/26/2021 CMP(C OMPRE HENSI VE METAB OLIC PANEL ) AST 12 units /L 13-39 low Not Available [facility] (Lab) [address] [place], [address], 06/01/2021 00:42:05 05/26/20 21 05/26/2021 CMP(C OMPRE HENSI VE METAB OLIC PANEL ) bilirubin, total 0.5 mg/dL 0.2-1. 2 Not Available [facility] (Lab) [address], [place], [address], 06/01/2021 00:42:05 05/26/20 21 05/26/2021 LH (LUTE NIZIN G HORMO NE) LH 6.1 mIU/m L This assay was perfo rmed using [employer] n reage nts and test kits. Value s obtai pam with other assay metho ds or kits canno t be used inter nelson eably . Femal es Mid-F ollic ular: 2.4-1 2.6 mIU/m L Mid-C ycle: 14.0- 95.6 mIU/m L Mid-L uteal : 1.0-1 1.4 mIU/m L Postm enopa use: 7.7-5 8.5 mIU/m L Not Available [facility] (Lab) [address], [place], [address], 06/01/2021 00:42:05 05/26/20 21 05/26/2021 VITAM IN D, 25-OH (TOTA L D2/D3 ) vitamin D, 25-hydroxy, total 25.0 NG/mL 30-80 low NOTE: Defic iency : <20 ng/mL Insuf ficie ncy: 20-29 ng/mL Optim um Level : 30-80 ng/mL Possi ble Toxic ity: >80 ng/mL Most patie nts with toxic ity have level s >150 ng/mL . Not Available [facility] (Lab) [address] [place], [address], 06/01/2021 00:42:06 05/26/20 21 05/26/2021 ESTRA DIOL estradiol 71.6 pg/mL This assay was perfo rmed using [employer] reage nts and test kits. Value s obtai pam with other assay metho ds or kits canno t be used inter nelson eably . Femal e Estra diol Range s: Folli cular phase 12.4- 233 pg/mL Ovula tion phase 41.0- 398 pg/mL Lutea l phase 22.3- 341 pg/mL Postm enopa usal< 5-138 pg/mL Healt hy Pregn ant Women 1st Trime ster1 54-32 43 pg/mL 2nd Trime ster1 561-2 1280 pg/mL 3rd Trime ster8 525-> 88972 pg/mL Not Available [facility] (Lab) [address], [place], [address], 06/01/2021 00:42:06 05/26/20 21 05/26/2021 FSH FSH 5.2 mIU/m L This assay was perfo rmed using [employer] reage nts and test kits. Value s obtai pam with other assay metho ds or kits canno t be used inter [facility] . Femal es Folli cular : 3.5-1 2.5 mIU/m L Ovula tion: 4.7-2 1.5 mIU/m L Lutea l: 1.7-7 .7 mIU/m L Postm enopa use: 25.8- 134.8 mIU/m L Not Available [facility] (Lab) [address] [place], [address], 06/01/2021 00:42:06 05/26/20 21 05/26/2021 PROGE STERO NE progesterone 11.50 NG/mL This assay was perfo rmed using [employer] reage nts and test kits. Value s obtai pam with other assay metho ds or kits canno t be used inter [facility] eay . Femal e Proge stero ne Range s: Folli cular phase 0.06- 0.89 ng/mL Ovula tion phase 0.12- 12.00 ng/mL Lutea l phase 1.83- 23.90 ng/mL Postm enopa usal< 0.05- 0.13 ng/mL Healt hy Pregn ant Women 1st Trime ster1 1.0-4 4.30 2nd Trime ster2 5.40- 83.30 3rd Trime ster5 8.70- 214.0 0 Not Available [facility] (Lab) [address], [place], [address], 06/01/2021 00:42:07 05/26/20 21 05/26/2021 PROLA CTIN prolactin, total 5.68 NG/mL 4.79-2 3.30 This assay was perfo rmed using [employer] reage nts and test kits. Value s obtai pam with other assay metho ds or kits canno t be used inter [facility] . Not Available [facility] (Lab) [address] [place], [address], 06/01/2021 00:42:07 05/26/20 21 05/26/2021 TSH, REFLE X FREE T4 TSH 1.53 uIU/m L 0.30-5 .33 Not Available [facility] (Lab) [address] [place], [address], 06/01/2021 00:42:08 05/26/20 21 05/26/2021 HUMAN SEX HORMO NE MARLEE NG GLOBU JARAD sex hormone binding globulin 69.1 nmole s/L 18.2-1 35.5 Not Available [facility] (Lab) [address] [place], [address], 06/01/2021 00:42:08 05/26/20 21 05/26/2021 HEMOG LOBIN A1C hemoglobin A1C 5.5 % 0-5.6 The Ameri can Diabe ambar Assoc iatio n recom mends that a prima ry goal of thera py shoul d be a HBA1C of < 7% and that physi cians shoul d reeva luate the treat ment regim en in patie nts with HBA1C value s consi stent ly > 8%. <5.7% Monica l 5.7 - 6.4% Incre ased risk for diabe ambar >=6.5 % Diagn ostic of diabe ambar <7.0% Goal of thera py >8.0% Actio n sugge sted Not Available [facility] (Lab) [address], [place], [address], 06/01/2021 00:42:08 05/26/20 21 05/26/2021 17-OH PROGE STERO NE 17-hydroxypr ogesterone, lc/MS/MS 150 NG/dL Adult Femal e Refer ence Range s for 17-Hy droxy proge stero ne: Pre-M enopa usal Mid Folli cular : 23-10 2 ng/dL Pre-M enopa usal Surge : 67-34 9 ng/dL Pre-M enopa usal Mid Lutea l: 139-4 31 ng/dL Postm enopa usal Phase : < or = 45 ng/dL Pregn dima: First Trime ster: 78-45 7 ng/dL Secon d Trime ster: 90-35 7 ng/dL Third Trime ster: 144-5 78 ng/dL This test was devel oped and its jj tical perfo rmanc e elyse cteri stics have been deter mined by [facility] . It has not been clear ed or appro hal by FDA. This assay has been valid ated pursu ant to the CLIA regul ation s and is used for clini josefa purpo ses. Perfo rming Organ izati on Infor matio n: Site ID: [id number] Name: [facility]/Good marielena [facility] [address] [place] , Addre ss: [id number] [place] [address] Direc tor: Janine xiong MD,Ph D,MIGUEL Not Available [facility] (Lab) [address] [place], [address], 06/01/2021 00:42:09 05/26/20 21 05/26/2021 TESTO STERO NE, FREE( DIALY SIS) AND TOTAL (LC/M S/MS) testosterone , total 31 NG/dL 2-45 For addit ional infocatalina villagran e refer to http: //[facility] eze peterson.que stdia gnost ics.c om/fa q/Tot alTdiandra Jordan [facility] (This link is being provi ded for infor lacey brasher/ educa ton l purpo ses only. ) This test was devel oped and its jj tical perfo rmanc e elyse cteri stics have been deter mined by [facility]. It has not been clear ed or appro hal by the FDA. This assay has been valid ated pursu ant to the CLIA regul ation s and is used for clini josefa purpo ses. Not Available [facility] (Lab) [address], [place], [address], 06/01/2021 00:42:09 05/26/20 21 05/26/2021 TESTO STERO NE, FREE( DIALY SIS) AND TOTAL (LC/M S/MS) testosterone , free 2.6 pg/mL 0.1-6. 4 This test was devel oped and its jj tical perfo rmanc e elyse cteri stics have been deter mined by [facility]. It has not been clear ed or appro hal by the FDA. This assay has been valid ated pursu ant to the CLIA regul ation s and is used for clini josefa purpo ses. Perfo rming Organ izati on Infor greteljosselin peterson: Site ID: [id number] Name: [facility]Good marielena [place] c[place] Addre ss: [id number] [place] [address] Direc tor: Kandis kilgore M.D. Not Available [facility] (Lab) [address], [place], [address], 06/01/2021 00:42:09 05/26/20 21 05/26/2021 US, pelvi s No observ ation record ed. [email or web address] [address], [place], [address], 05/26/2021 13:01:55 05/26/20 21 05/26/2021 US, trans vagin al No observ ation record ed. [email or web address] [address], [place], [address], 05/26/2021 13:02:05 05/26/20 21 05/26/2021 US, pelvi s No observ ation record ed. [email or web address] [address], [place], [address], 05/26/2021 14:46:41 Result Notes None recorded. Problems Name Problem SNOMED Code Status Onset Date Resolution Date Notes Provider Name and Address Organization Details Recorded Time Postpartu m care Active 2013 Post Followup;R ecorded Elsewhere: No Locatio n: [facility] rce: EHR Chroni c: N Practice ID: 0001 Billa ble Time: 05:15:00 PM Not Available [facility] 0 21:50:39 Acne [id number] Active 2016 Acne;Recor ded Elsewhere: No Locatio n: [facility] rce: EHR Chroni c: N Practice ID: 0001 Billa ble Time: 11:15:00 AM Not Available [employer] 0 21:50:39 Primigrav alysia [id number] Active 2013 Supervisio n of normal first ; Recorded Elsewhere: No Locatio n: [facility] rce: EHR Chroni c: N Practice ID: [id number] Billa ble Time: 11:30:00 AM Not Available [employer] 0 21:50:39 Exposure to sexually transmiss ible disorder Active 2016 Exposure to infection with a predominan tly sexual mode of transmissi on;Recorde d Elsewhere: No Locatio n: [facility] rce: EHR Chroni c: N Practice ID: [id number] Billa ble Time: 10:15:00 AM Not Available [employer] 0 21:50:[address] Concept Active 2016 Encntr for washer hand exam (general) (routine) w/o abn findings;R ecorded Elsewhere: No Locatio n: [facility] rce: EHR Chroni c: N Practice ID: [id number] Billa ble Time: 10:15:00 AM Not Available [employer] 0 21:50:39 Acute vaginitis [id number] Active 2016 Acute vulvovagin itis;Recor ded Elsewhere: No Locatio n: [facility] rce: EHR Chroni c: N Practice ID: 0001 Billa ble Time: 11:15:00 AM Not Available [employer] 0 21:50:39 Finding of pattern of menstrual cycle [id number] Active 2016 Irregular interval between menstrual bleeding;R ecorded Elsewhere: No Locatio n: [facility] rce: EHR Chroni c: N Practice ID: 0001 Billa ble Time: 11:15:00 AM Not Available [employer] 0 21:50:39 Implantat ion of subcutane ous contracep tive Active 2013 Insertion of implantabl e subdermal contracept odalys;Record ed Elsewhere: No Locatio n: [facility] rce: EHR Chroni c: N Practice ID: 0001 Billa ble Time: 10:00:00 AM Not Available [employer] 0 21:50:39 Dietary managemen t surveilla nce Active 2013 Dietary surveillan ce and counseling ;Recorded Elsewhere: No Locatio n: [facility] rce: EHR Chroni c: N Practice ID: 0001 Billa ble Time: 08:30:00 AM Not Available [employer] 0 21:50:39 Glucose tolerance test during - baby not yet delivered outside reference range 835429638 Active 2013 Abnormal glucose tolerance of mother, antepartum ;Recorded Elsewhere: No Locatio n: [facility] rce: EHR Chroni c: N Practice ID: 0001 Billa ble Time: 11:00:00 AM Not Available [employer] 0 21:50:39 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, high risk on cervical specimen 104338055 Active 2016 Cervical high risk HPV DNA test positive;R ecorded Elsewhere: No Locatio n: [facility] rce: EHR Chroni c: N Practice ID: 0001 Billa ble Time: 10:15:00 AM Not Available [employer] 0 21:50:39 Gonococca l cerviciti s 399919386 Active 2016 Gonococcal cervicitis , unspecifie d;Recorded Elsewhere: No Locatio n: [facility] rce: EHR Chroni c: N Practice ID: 0001 Billa ble Time: 10:15:00 AM Not Available [employer] 0 21:50:39 Labor and delivery complicat ed by heart rate anomaly 608554810 Active 2013 ABNORMALIT Y IN HEART RATE OR RHYTHM, ANTEPARTUM ;Recorded Elsewhere: No Locatio n: [facility] rce: EHR Chroni c: N Practice ID: 0001 Billa ble Time: 09:30:00 AM Not Available [employer] 0 21:50:39 test negative 566867864 Active 2016 Encounter for test, result negative;R ecorded Elsewhere: No Locatio n: [facility] rce: EHR Chroni c: N Practice ID: 0001 Billa ble Time: 11:15:00 AM Not Available [employer] 0 21:50:39 Past history of gestation al diabetes mellitus 911980453 Active 2014 Personal history of gestationa l diabetes;R ecorded Elsewhere: No Locatio n: [facility] rce: EHR Chroni c: N Practice ID: 0001 Billa ble Time: 04:40:54 PM Not Available [employer] 0 21:50:39 Ultrasono graphy Active 2013 screening for malformati on using ultrasonic s;Recorded Elsewhere: No Locatio n: [facility] rce: EHR Chroni c: N Practice ID: 0001 Billa ble Time: 09:00:00 AM Not Available [facility] 0 21:50:40 screening Active 2013 screening for malformati on using ultrasonic s;Recorded Elsewhere: No Locatio n: [facility] rce: EHR Chroni c: N Practice ID: 0001 Billa ble Time: 09:00:00 AM Not Available [employer] 0 21:50:40 Congenita l malformat ion 342041098 Active 2013 screening for malformati on using ultrasonic s;Recorded Elsewhere: No Locatio n: [facility] rce: EHR Chroni c: N Practice ID: 0001 Billa ble Time: 09:00:00 AM Not Available [facility] 0 21:50:40 Transient hypertens ion of - delivered with complicat ion 544758137 Active 2013 Gestationa l hypertensi on;Recorde d Elsewhere: No Locatio n: [facility] rce: EHR Chroni c: N Practice ID: 0001 Billa ble Time: 02:30:00 PM Not Available [facility] 0 21:50:40 Specializ ed medical examinati on Active 2013 Gynecologi josefa Examinatio n;Recorded Elsewhere: No Locatio n: [facility] rce: EHR Chroni c: N Practice ID: 0001 Billa ble Time: 03:00:00 PM Not Available [employer] 0 21:50:40 Contracep tion care managemen t Active 2016 Encounter for contracept odalys management , unspecifie d;Recorded Elsewhere: No Locatio n: [facility] rce: EHR Chroni c: N Practice ID: 0001 Billa ble Time: 08:45:00 AM Not Available [facility] 0 21:50:40 Screening for malignant neoplasm of cervix Active 2013 Screening for malignant neoplasms of the cervix;Rec orded Elsewhere: No Locatio n: [facility] rce: EHR Chroni c: N Practice ID: 0001 Billa ble Time: 03:00:00 PM Not Available [facility] 0 21:50:40 test positive 617816110 Active 2013 examinatio n or test, positive result;Rec orded Elsewhere: No Locatio n: [facility] [address] [facility] rce: EHR Chroni c: N Practice ID: 0001 Billa ble Time: 03:00:00 PM Not Available [facility] 0 21:50:41 Complicat ion related to Active 2013 Weight Insufficie nt Antepartum ;Practice ID: 0001 Not Available [facility] 0 21:50:43 Delivery normal 76849435 Active 2013 Normal delivery;P ractice ID: 0001 Not Available [facility] 0 21:50:44 Single live from lemons 575133966 Active 2013 Mother with single liveborn;P ractice ID: 0001 Not Available [facility] 0 21:50:44 Procedure Active 2016 Enctr srvlnc implantabl e subdermal contracept odalys;Practi ce ID: 0001 Not Available [facility] 0 21:50:45 Problem Notes None recorded. Procedures Surgical History Date Name Laterality Status Provider Name and Address Organization Details Recorded Time 1 Date of Last Pap Smear completed [facility] 08/22/2023 09:44:36 1 Date of Last Mammogram completed [facility] 05/22/2021 13:24:27 procedure on hand completed [facility] 05/22/2021 17:23:43 procedure on elbow completed [facility] 05/22/2021 17:24:18 Imaging Results None recorded. Procedure Notes None recorded. Medical Equipment None Reported. Allergies No known drug allergies Medications Name Sig Start Date Stop Date Status Note LastModified by Organization Details LastModified Time glyburide 2.5 mg tablet take 1 tablet by oral route at bedtime 03/01 completed Prescrib ed Elsewher e: No Locat ion: Annalise mak [facility] odify By: raheel nagel DateTime : 02/06/20 14 11:00:00 AM Not Available Not Available Not Available omeprazol e 40 mg capsule,d elayed release TAKE 1 CAPSULE BY MOUTH DAILY active Not Available Not Available No t Available tramadol 50 mg tablet TAKE 1 TO 2 TABLETS BY MOUTH EVERY 6 HOURS NEEDED active Not Available Not Available No t Available Flagyl 500 mg tablet take 1 tablet (500MG) by oral route 2 times every day 09/09 completed Prescrib ed Elsewher e: No Locat ion: [facility] odify By: omedical Encount er DateTime : 09/03/19 14 12:31:26 PM Not Available Not Available Not Available doxycycli ne monohydra te 100 mg capsule take 1 capsule by oral route every day 04/14 completed Prescrib ed Elsewher e: No [facility] By: cmschult z Melonie ter DateTime : 02/23/20 17 10:15:00 AM Not Available Not Available Not Available Valtrex 500 mg tablet take 1 tablet by oral route every day 03/01 completed Prescrib ed Elsewher e: No Locat ion: [facility]ify By: raheel nagel DateTime : 02/15/20 14 11:30:00 AM Not Available Not Available Not Available methylpre dnisolone 4 mg tablets in a dose pack FOLLOW PACKAGE DIRECTIO NS active Not Available Not Available No t Available albuterol sulfate HFA 90 mcg/actua tion aerosol inhaler INHALE 1 TO 2 PUFFS BY MOUTH EVERY 4 HOURS NEEDED active Not Available Not Available No t Available Vitamin D2 1,250 mcg (50,000 unit) capsule take 1 capsule (51607BP ITS) by oral route every week 03/01 completed Prescrib ed Elsewher e: No [facility] By: raheel nagel DateTime : 12/25/19 14 11:45:05 AM Not Available Not Available Not Available ketoconaz ole 2 % topical cream APPLY TOPICALL Y TO THE AFFECTED AREA TWICE DAILY active Not Available Not Available No t Available ondansetr on 4 mg disintegr ating tablet DISSOLVE 1 TABLET ON THE TONGUE EVERY 8 HOURS NEEDED FOR NAUSEA OR VOMITING active Not Available Not Available No t Available Necon 0.5/35 (28) 0.5 mg-35 mcg tablet take 1 tablet by oral route every day 04/14 completed Prescrib ed Elsewher e: No Locat ion: [facility] odify By: delfino nagel DateTime : 02/23/20 17 10:15:00 AM Not Available Not Available Not Available Bactrim DS 800 mg-160 mg tablet take 1 tablet by oral route every 12 hours 01/04 completed Prescrib ed Elsewher e: No Locat ion: [facility] odify By: delfino nagel DateTime : 09/17/19 17 11:15:00 AM Not Available Not Available Not Available escitalop yesica 10 mg tablet active Not Available Not Available Not Available cholestyr amine (with sugar) 4 gram oral powder MIX 4 GRAMS DIRECTED TWICE DAILY FOR 30 DAYS. ADMINIST ER WITH A MEAL AND AVOID OTHER MEDS 1 HR BEFORE OR 4-6 HOURS AFTER DOSE active Not Available Not Available No t Available Ortho-Cyc aria (28) 0.25 mg-35 mcg tablet take 1 tablet by oral route every day 01/04 completed Prescrib ed Elsewher e: No Locat ion: [facility] odify By: dlefino nagel DateTime : 09/17/19 17 11:15:00 AM Not Available Not Available Not Available Triveen-D uo DHA 29 mg-1 mg-400 mg oral pack take 1 by Oral route every day 03/01 completed Prescrib ed Elsewher e: No Locat ion: [facility] odify By: raheel nagel DateTime : 09/03/19 14 12:31:26 PM Not Available Not Available Not Available Nexplanon 68 mg subdermal implant 04/14 completed Prescrib ed Elsewher e: Yes Loca tion: Annalise mak [facility] By: cmschult z Encoun ter DateTime : 05/21/20 14 10:00:00 AM Not Available Not Available Not Available Vitals Date Recorded Body weight Systolic blood pressure Diastolic blood pressure Provider Name and Address Organization Details Last Updated DateTime 05/22/2021 971917.06 g 119 mm[Hg] 77 mm[Hg] Patria French [facility] 05/22/2021 13:22:51 Social History None recorded. Functional Status None recorded. Mental Status None recorded. Family History Relationship Description Onset Age of this Age Resolved Age Notes LastModified by Organization Details LastModified Time Maternal Grandmother Malignant tumor of breast [email or web address] Not available 2020 17:21:53 Maternal Grandmother Malignant neoplasm of skin [email or web address] Not available 2020 17:22:02 Maternal Grandmother Malignant neoplasm of ovary [email or web address] Not available 2020 17:22:13 Maternal Grandfather Malignant neoplasm of skin [email or web address] Not available 2020 17:22:27 Medical History Condition Response History of STI Y History of abnormal pap Y Gynecological History Statement/Question Response Abnormal Pap Y Date of Last Mammogram 05/04/2021 Date of LMP 05/08/2021 STIs/STDs Y Date of Last Pap Smear 05/22/2021 Current Control Method None Desired Control Method None LMP Approximate Obstetrics History GPAL:G 2 P 1 0 1 1 Type Value Full Term 1 Spontaneous 1 Living 1 Total 2 Past Encounters Encounter ID Performer Location Encounter Start Date Encounter Closed Date Diagnosis/Indication Diagnosis SNOMED-CT Code Diagnosis ICD10 Code Diagnosis Note [id number] Ruslan Vazquez MD [facility] [address] [address] 05/22/2021 12:43:30 05/22/2021 13:42:41 Gynecologic examination 60606991 Z01.419 This patient is here for her annual exam. A thorough history was taken. A physical exam was performed. Age appropriat e routine health screening was ordered, performed, and discussed. Recommende d testing was ordered. She was asked to follow up in one year. She will be informed of any test results. Mammogram - [done ] Cholestero l - [ordered ] Pap - today [id number] Ruslan Vazquez MD [facility] [address] [address] 05/26/2021 12:04:43 05/26/2021 12:38:43 Irregular periods 39472021 N92.6 Health Concerns Section Related Observation LastModified by Organization Detai ls LastModified Time None Recorded Concern Status LastModified by Organization Details LastModified Time None Recorded Advance Directives Directive None Recorded Payers Insurance Date Sequence Insurance Name Policy Number Policy Louis Covered Member ID Louis Member ID Guarantor Name 09/09/2023 1 [facility] (PPO) [id number] Linda Wiser [id number] Linda Wiser 09/09/2023 2 [facility] (PPO[facility] [id number] Carlos Martinez [id number] Linda Wiser 08/11/2023 1 [facility] (MEDICAID HMO) [id number] Linda Wiser [id number] Linda Wiser Notes Date Note Type Note Provider Name and Address Organization Details Recorded Time 05/22/2021 text/html Annual GYNReport ed bypatient.History: no gynecologic complaints Menstrual cycle:Bleeding lasts more than 7 days Urinary symptoms:No hematuria; No incontinence Vulva:No genital lesion Vagina:Normal vaginal discharge Breast:No breast pain; No breast lump; No nipple discharge Current Contraception:Part ner had vasectomy Sexual complaints:No sexual complaints; No pain during intercourse; Normal libido Psychological symptoms:No depression; No anxiety Preventive measures:Encourage self breast examination; Encourage regular exercise Ruslan Vazquez MD [address], [place], [address], [facility] 05/22/2021 13:44:32 OBGyn Episode Ob Episode Information Episode Created Date Number of Fetuses Patient Bloodtype Patient rh Status Prepregnancy Weight lbs Domestic Partner Domestic Partner Phone Father Name Flight Tower Dispatcher Status 05/22/20 21 1 CLOSED Fetus Data First Name Last Name Admitted to NICU Weight (g) Sex Living Outcome Pediatric Complications Fetus ID Race Codes Race Delivery Type , Spontane ous [id number] Charlie Calculation Initial Charlie Date Initial Exam Date Initial Exam Provider Initial Ultrasound Date Last Menstrual Period Date Ultra Sound Weeks Gestation 0 Eighteen To Twenty Week Charlie Update Ultra Sound Date Fundal Height At Umbil Quickening Date Ultra Sound Latest Weeks Gestation Final Charlie Confirmed By Final Charlie Confirmed Date Final Charlie Date Ultra Sound Latest Days Gestation 0 0 Menstrual History Last Menstrual Date Menses Monthly On Bcp Conception Prior Menses Frequency Hcg Plus Date Menarche Onset Age Delivery Information Delivery Date Delivery Type Labor Anesthesia Weeks Gestation Incision Type Labor Labor Length Hrs Delivered By Post Complications Tubal Sterilization Discharge Date Comments 0 Discharge Information Feeding Method Contraceptive Method Maternal HG B and HCT Levels Ob Episode Information Episode Created Date Number of Fetuses Patient Bloodtype Patient rh Status Prepregnancy Weight lbs Domestic Partner Domestic Partner Phone Father Name Flight Tower Dispatcher Status 05/22/20 21 1 CLOSED Fetus Data First Name Last Name Admitted to NICU Weight (g) Sex Living Outcome Pediatric Complications Fetus ID Race Codes Race Delivery Type 2608.15 4 F Full Term [id number] Vaginal Delivery Charlie Calculation Initial Charlie Date Initial Exam Date Initial Exam Provider Initial Ultrasound Date Last Menstrual Period Date Ultra Sound Weeks Gestation 0 Eighteen To Twenty Week Charlie Update Ultra Sound Date Fundal Height At Umbil Quickening Date Ultra Sound Latest Weeks Gestation Final Charlie Confirmed By Final Charlie Confirmed Date Final Charlie Date Ultra Sound Latest Days Gestation 0 0 Menstrual History Last Menstrual Date Menses Monthly On Bcp Conception Prior Menses Frequency Hcg Plus Date Menarche Onset Age Delivery Information Delivery Date Delivery Type Labor Anesthesia Weeks Gestation Incision Type Labor Labor Length Hrs Delivered By Post Complications Tubal Sterilization Discharge Date Comments 4 37.1 GDM, GHT N Discharge Information Feeding Method Contraceptive Method Maternal HG B and HCT Levels
== END 2024-12-28 07:31 | disposition home or self-care (01) ==
PROVIDERS: PCP Emergency Medicine; Visit Provider Emergency Medicine
DX: R11.2 Nausea with vomiting, unspecified (principal)
CPT/HCPCS: 78264; A9541

== ENCOUNTER 2025-02-13 09:38 | Outpatient (CLI) | payer BC, SELFPAY ==
--- NOTE | ~2025-02-13 | US_ITS ---
Limited Abdominal Sonogram: Real-time sonographic imaging of the right upper quadrant was performed. Clinical History: Abdominal pain Findings: The liver appears normal with no evidence of mass lesion or bile duct dilatation. Main por leonardo vein demonstrates normal direction of flow. The gallbladder is well distended, and appears normal with no evidence of gallstone or wall thickening. The common bile duct measures 3 mm. The visualize d pancreas, aorta, and IVC are unremarkable. Impression: No significant abnormality seen. Reviewed, dictated and finalized at location . Impression: No significant abnormality seen.
== END 2025-02-13 09:39 | disposition home or self-care (01) ==
PROVIDERS: PCP Emergency Medicine; Visit Provider Emergency Medicine
DX: R10.84 Generalized abdominal pain (principal)
CPT/HCPCS: 76705

== ENCOUNTER 2025-03-08 10:02 | Outpatient (CLI) | payer BC, SELFPAY ==
--- NOTE | ~2025-03-08 | NM_ITS ---
EXAMINATION: [id number] DATE: 03/08/2025 12:55 INDICATION: Abdominal pain COMPARISON: None. TECHNIQUE: 4.79 mCi Tc-99m mebrofenin (Choletec) was administered intravenously. Scintigraphic images of the abdomen were obtained for one hour. 2.2 mcg sincalide (Kinevac) was administered by slow intravenous infusion, and imaging was continued for 30 minutes. Gallbladder ejection fraction was calculated by the technologist. FINDINGS: There is normal clearance of radiotracer from the blood pool. There is homogeneous tracer uptake by the liver. Activity progresses to the gallbladder and bowel. The gallbladder ejection fraction (GBEF) is 10% (normal 10-90%, but most patient with gallbladder dysfunction have GBEF < 35% which does overlap with the normal range). IMPRESSION: 1. Gallbladder ejection fraction is at the lowest limits of normal. This could be normal but is also within the range of overlap with gallbladder dysfunction or chronic cholecystitis in the appropriate clinical setting. Reviewed, dictated and finalized at location A.
--- OUTSIDE RECORDS SUMMARY | 2025-03-08 10:06 | XMS_ITS | Clinical Summary ---
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 Resolved Problems Problem Noted Date Diagnosed Date Resolved Date Impingement syndrome of left shoulder 09/18/2021 01/11/2025 Neuropathic pain of forearm, right 02/24/2018 01/11/2025 Other seborrheic dermatitis 10/06/2017 01/11/2025 Other specified epidermal thickening 10/06/2017 01/11/2025 Rash and other nonspecific skin eruption 10/06/2017 01/14/2025 Acne vulgaris 10/04/2017 01/11/2025 Cervical high risk human pap illomavirus (HPV) DNA test positive 01/04/2017 01/14/2025 Gonococcal cervicitis 01/04/20172024 Acute vaginitis 09/16/2016 01/11/2025 Transient hypertension of pr egnancy, with delivery, with current complication 03/01/2014 01/11/2025 Delivery normal 02/22/2014 01/11/2025 Abnormal glucose tolerance t est (GTT) during , antepartum 02/05/2014 01/11/2025 Encounters Date Type Department Care Team Description 01/24/2025 Telephone [facility] Medicine Rheumatology [address] [facility] [address] [place] [address] Mary Salcedo, Teresita Lab Results; Biopsy Results 01/24/2025 Telephone [facility] Medicine Rheumatology [address] [facility] Office [address] [place] [address] Nia Mayorga NP 01/11/2025 1:20 PM CDT Office Visit [facility] Medicine Rheumatology [address] [facility] [address] [place] [address] Nia Mayorga NP 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 Never 01/11/2025 Q2: How many drinks containi ng alcohol do you have on a typical day when you are drinking? Patient does not drink Frequency of Binge Drinking Not on file 12/17 Comments Unknown Sex and Gender Information Value Date Recorded Sex Assigned at Not on file Legal Sex Female 9:58 AM GENERATION MANAGER Gender Identity Not on file Sexual Orientation Not on file Obstetrics History Last Filed Vital Signs Vital Sign Reading Time Taken Comments Blood Pressure 119/81 01/11/2025 1:09 PM CDT Pulse 86 01/11/2025 1:09 PM CDT Temperature 36.7 C (98.1 F) 01/11/2025 1:09 PM CDT Respiratory Rate 18 10/14/2023 2:20 PM CDT Oxygen Saturation 97% 01/11/2025 1:09 PM CDT Inhaled Oxygen Concentration - - Weight 102.7 kg (226 lb 8 oz) 01/11/2025 1:09 PM CDT Height 157.5 cm (5' 2) 01/11/2025 1:09 PM CDT Body Mass Index 41.43 01/11/2025 1:09 PM CDT Plan of Treatment Health Maintenance Due Date Last Done Comments Cervical Cancer Screening 1985 Depression Screening 1985 Hepatitis C Screening 1985 DTaP/Tdap/Td Vaccine (1 - Tdap) 1996 Varicella Vaccines (1 of 2 - 13+ 2-dose series) 1998 Hepatitis B Screening 2003 Regular Well Visit/Exam 18-64 2003 Pneumococcal vaccine <65 (1 of 2 - PCV) 2004 HPV Vaccines (1 - 3-dose SCDM series) 2012 Influenza Vaccine (#1) [address] Care Teams Ship Erector Relationship Specialty Start Date End Date Ja Hendricks MD PCP - General Internal Medicine 10/14/23 [place] [address] [place] [address] Nurse Practitioner 11/21/24
--- OUTSIDE RECORDS SUMMARY | 2025-03-08 10:06 | XMS_ITS | Clinical Summary ---
Author Organization [facility] Address [address] [place] [place] [address] Phone Care Team Providers Care Order Desk Clerk Name Role Phone Vlad Gonzales MD Primary Care Provider [phone] Allergies No known active allergies Medications valacyclovir [...] Comments Blood Pressure 132/62 07/14/2018 7:19 AM HEALTH POLICY ANALYST Pulse 68 07/14/2018 7:19 AM HEALTH POLICY ANALYST Temperature 36.8 C (98.3 F) 07/14/2018 7:19 AM HEALTH POLICY ANALYST Respiratory Rate 18 07/14/2018 7:19 AM HEALTH POLICY ANALYST Oxygen Saturation 93% 07/12/2018 12:00 PM HEALTH POLICY ANALYST Inhaled Oxygen Concentration - - Weight 111.6 kg (246 lb) 07/11/2018 12:59 PM HEALTH POLICY ANALYST Height 160 cm (5' 3) 07/11/2018 12:59 PM HEALTH POLICY ANALYST Body Mass Index 43.58 07/11/2018 12:59 PM HEALTH POLICY ANALYST Plan of Treatment Health Maintenance Due Date Last Done Comments HPV VACCINES (1 - 3-dose series) 2000 DTAP/TDAP/TD VACCINES (1 - Tdap) 2004 HEPATITIS B VACCINES (1 of 3 - 19+ 3-dose series) 08/18 HPV/Cotest (21-29) 2006 CERVICAL CANCER SCREENING 2015 HPV/Cotest (30-65) 2015 PAP SMEAR 2015 INFLUENZA VACCINE (#1) 2025 Insurance [facility] [employer] ACCESS CHOICE Advance Directives For more information, please contact: [phone] * Full Code (Latest Code Status on File) Date Activated Date Inactivated Comments 07/12/2018 5:00 PM 07/14/2018 3:18 PM * Full Code Date Activated Date Inactivated Comments 07/11/2018 2:54 PM 07/12/2018 5:00 PM * Full Code Date Activated Date Inactivated Comments 07/11/2018 2:54 PM 07/11/2018 2:54 PM Care Teams Order Desk Clerk Relationship Specialty Start Date End Date Vlad Gonzales MD [address] [place] [address] PCP - General Family Practice 02/22/18
--- OUTSIDE RECORDS SUMMARY | 2025-03-08 10:06 | XMS_ITS | Encounter Summary ---
Author Organization [facility] Address [address] [place] [address] Care Team Providers Care Engineering Technical Analyst Name Role Phone Ja Hendricks MD Primary Care Provider [phone] Reason for Visit * Reason Onset Date Comments Nurse Only 07/28/2023 Encounter Details Date Type Department Care Team (Late st Contact Info) Description 07/28/2023 Telephone [facility] - Dermatology [address] [place] [address], [facility] [place] [address] Jeanine Cummins MD [address] [place] [address] [address] [place] [address] Nurse Only Social History Tobacco Use Types Packs/Day Years Used Date Smoking Tobacco: Former Cigarettes Smokeless Tobacco: Never Alcohol Use Standard Drinks/Week Comments No 0 (1 standard drink = 0.6 oz pur e alcohol) Comments Unknown Sex and Gender Information Value Date Recorded Sex Assigned at Not on file Legal Sex Female 5:33 AM SPINNER TENDER Gender Identity Not on file Sexual Orientation Not on file documented as of this encounter Miscellaneous Notes * Telephone Encounter - Jeanine Cummins MD - 07/29/2023 10:32 AM SPINNER TENDER New referral order placed by Dr. Chavez on 07/28/23. NER TENDER * Telephone Encounter - López Sanabria - 07/28/2023 2:46 PM CST Pt states she needs a new referral from Derm to [facility]. She has an appt on 08/08 and provider states she needs a new referral for 2023 NER TENDER documented in this encounter Plan of Treatment Not on file documented as of this encounter Visit Diagnoses Not on filedocumented in this encounter Care Teams Engineering Technical Analyst Relationship Specialty Start Date End Date Ja Hendricks MD [address] [place], [place] [id number] PCP - General 06/08/21 documented as of this encounter
--- OUTSIDE RECORDS SUMMARY | 2025-03-08 10:06 | XMS_ITS | Clinical Summary ---
Author Organization [facility] Address [address] [place] [address] Care Team Providers Care Machinist Mate Name Role Phone Ja Hendricks MD Primary Care Provider [phone] Pratibha Francisco MD Unavailable Allergies No known active allergies Medications metoprolol succinate ER (TOPROL-XL) 25 MG 24 hr tablet Take 12.5 mg by mouth daily. Active metoprolol tartrate (LOPRESSOR) 50 MG tablet Take 2 tablets by mouth 2 hours prior to test, bring the last tablet with you. 3 tablet Active Additional Information Patient not taking.Reported on 08/02/2022 Active Problems Problem Noted Date Diagnosed Date Impingement syndrome of left shoulder 09/18/2021 Family History Medical History Relation Comments Diabetes type II Father Heart Attack Father Hypertension Father Aneurysm Maternal Grandfather Aneurysm Mother Relation Status Comments Father Maternal Grandfather Mother Social History Tobacco Use Types Packs/Day Years Used Date Smoking Tobacco: Former Cigarettes Q uit: 2014 Smokeless Tobacco: Never Alcohol Use Standard Drinks/Week Comments Never 0 (1 standard drink = 0.6 oz pur e alcohol) Comments Unknown Sex and Gender Information Value Date Recorded Sex Assigned at Not on file Legal Sex Female 2:04 PM OFFICE ASST Gender Identity Not on file Sexual Orientation Not on file Last Filed Vital Signs Vital Sign Reading Time Taken Comments Blood Pressure 118/90 08/02/2022 11:41 AM OFFICE ASST Pulse 78 08/02/2022 11:40 AM OFFICE ASST Temperature - - Respiratory Rate 18 08/02/2022 11:40 AM OFFICE ASST Oxygen Saturation - - Inhaled Oxygen Concentration - - Weight 101.6 kg (224 lb) 08/02/2022 11:40 AM OFFICE ASST Height 160 cm (5' 3) 08/02/2022 11:40 AM OFFICE ASST Body Mass Index 39.68 08/02/2022 11:40 AM OFFICE ASST Plan of Treatment Health Maintenance Due Date Last Done Comments Cervical Cancer Screening Pa p Smear (Age 30 to 64) Every 3 Years 1985 Annual Physical 1988 Hepatitis C 2003 DTaP, Tdap and Td Vaccines ( 1 - Tdap) 2004 Hepatitis B Vaccines (1 of 3 - 19+ 3-dose series) 2004 HPV Vaccines (1 - 3-dose SCD M series) 2012 Cervical Cancer Screening Pa p with HPV Testing (Age 30 to 64) Every 5 Years 2015 Cervical Cancer Screening with HPV 2015 COVID-19 Vaccine (2023-2 5 season) 2024 Meningococcal B Vaccine Aged Out No l onger eligible based on patient's age to complete this topic Meningococcal Vaccine Aged Out No mily darby eligible based on patient's age to complete this topic Pneumococcal Vaccine: Pediat rics (0 to 5 Years) and At-Risk Patients (6 to 49 Years) Aged Out No longer eligible b ased on patient's age to complete this topic RSV Immunizations Under 20 Months Aged Out No longer eligible based on patient's age to complete this topic Insurance [facility] [employer] [place] Advance Directives Documents on File Type Date Recorded 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
--- OUTSIDE RECORDS SUMMARY | 2025-03-08 10:06 | XMS_ITS | Patient Health Record ---
Author Organization [facility] Address [address] [place] [address] Care Team Providers Care Turkey Cleaner Name Role Phone Eladio CHAPA, [facility] Primary Care Provider UnavailDolores Puente Unavailable [phone] Reason For Referral No Information Social History Sex Assigned At : Social History Observation Description Sex Assigned At Female Encounters Encounter Location Date Provider Diagnosis [facility] [address] [facility] [address] [place] [address] 12/26/2024 Dolores Vaughn [facility] [address] [place] [address] 01/14/2025 Dolores Vaughn Plan Of Treatment No Information Insurance Providers Payer Name Payer Address Payer Phone Subscriber Number Group Number Insured Name Patient Relationship to Insured Coverage Start Date Coverage End Date [employer] [address] [place] [address] [id number] Linda Richardson Self - patient is the insured
--- OUTSIDE RECORDS SUMMARY | 2025-03-08 10:06 | XMS_ITS | Clinical Summary ---
Author Organization [facility] Address [address] [place] [address] Care Team Providers Care Powerhouse Helper Name Role Phone Ja Hendricks MD Primary Care Provider [phone] Source Comments [facility],non-owned Affiliates and Associated Physician Practices is amultiple site organization consisting of ambulatory clinics and hospital sitesin [place], [place], [place] and [place]. This disclosure is being madepursuant to the Care Everywhere program and may not contain all information available regarding this patient. 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 Gender Identity Not on file Sexual Orientation [...] 19+ 3-dose series) 2004 PAP SMEAR 2006 HPV VACCINE (1 - 3-dose SCDM series) 2012 COVID-19 VACCINE (1 - 2023-2 5 season) 2024 DEPRESSION SCREENING 07/18/2024 INFLUENZA VACCINE (#1) 2025 ZOSTER VACCINE (1 of 2) 2035 [...] 0.01 <1.00 [facility] Comment: Test Performed at: [facility] [address] [place] [address] BENITEZ CAT DO,MPH 10/22/2017 8:51 AM CDT 10/22/2017 8:53 AM CDT Ana Paula York MD LAB - CHEMISTRY ORDERA BLEEbenezer Final Result [facility] [address] [place] [address] from Last 3 Months or Most Recently Relevant to Health Maintenance Insurance [employer] Member Subscriber Plan / Payer (Ef fective 2022-Present) Name:Pachecojey Erik Jin Relation to Subscriber:Self Name:Shimon Richardsonher Jin Payer ID:[id number] (NAIC) Type:PPO Address: [address] [place] Care Teams Powerhouse Helper Relationship Specialty Start Date End Date Ja Hendricks MD [address] [place], [place] [id number] PCP - General 06/08/21
== END 2025-03-08 10:03 | disposition home or self-care (01) ==
PROVIDERS: PCP Emergency Medicine; Visit Provider Emergency Medicine
DX: R10.9 Unspecified abdominal pain (principal)
CPT/HCPCS: 78227; A9537; J2805

== ENCOUNTER 2025-04-01 11:54 | Outpatient (CLI) | payer BC, SELFPAY ==
[2025-04-01 12:31] LABS: Hematocrit 40.6 % (37.0-47.0); Hemoglobin 13.4 g/dL (12.0-15.0); Immature Granulocyte Percent A 0.3 % (0-0.5); Lymphocytes Absolute Auto 1.93 K/mm3 (0.9-3.2); Mean Corpuscular HGB Conc 33.0 g/dl (32-36); Mean Corpuscular Hemoglobin 29.1 pg (26-34); Mean Corpuscular Volume 88.3 fl (80-100); Nucleated Red Blood Cells Absolute Auto 0.000 K/mm3 (0.0-0.012); Nucleated Red Blood Cells Perc 0.0 % (0.0-0.2); Platelet Count Result 273 k/mm3 (150-375); Red Blood Count 4.60 M/mm3 (4.2-5.4); White Blood Count 6.0 K/mm3 (4.5-10.0)
[2025-04-01 12:57] LABS: Alanine Aminotransferase 16 U/L (6-35); Albumin Level 4.3 g/dL (3.5-5.1); Alkaline Phosphatase 56 U/L (38-126); Amylase 68 U/L (30-110); Aspartate Amino Transferase 22 U/L (14-36); Bilirubin,Total 0.9 mg/dL (0.2-1.3); Lipase 46 U/L (23-300); Total Protein 7.1 g/dL (6.3-8.2)
--- OUTSIDE RECORDS SUMMARY | 2025-04-01 14:02 | XMS_ITS | Clinical Summary ---
Author Organization [facility] [address] [facility] [place] [address] Care Team Providers Care Balloon Design Printer Name Role Phone Ja Hendricks MD Primary Care Provider [phone] Patience Coyle ULTRASOUND TESTER Unavailable Allergies No known active allergies Medications [...] Type Department Care Team Description 01/24/2025 Telephone [facility] Medicine Rheumatology [address] [facility] [address] [place] [address] Mary Salcedo, Teresita Lab Results; Biopsy Results 01/24/2025 Telephone [facility] Medicine Rheumatology [address] [facility] [address] [place] [address] Nia Mayorga NP 01/11/2025 1:20 PM CDT Office Visit [facility] Medicine Rheumatology [address] [facility] [address] [place] [address] Nia Mayorga NP Discoid lupus [...] on file 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
--- OUTSIDE RECORDS SUMMARY | 2025-04-01 14:02 | XMS_ITS | Clinical Summary ---
Author Organization 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 Gender Identity Not on file Sexual Orientation Not on file Last Filed Vital Signs Vital Sign Reading Time Taken Comments Blood Pressure 118/90 08/02/2022 11:41 AM FINE ARTS PACKER Pulse 78 08/02/2022 11:40 AM FINE ARTS PACKER Temperature - - Respiratory Rate 18 08/02/2022 11:40 AM FINE ARTS PACKER Oxygen Saturation - - Inhaled Oxygen Concentration - - Weight 101.6 kg (224 lb) 08/02/2022 11:40 AM FINE ARTS PACKER Height 160 cm (5' 3) 08/02/2022 11:40 AM FINE ARTS PACKER Body Mass Index 39.68 08/02/2022 11:40 AM FINE ARTS PACKER Plan of Treatment Health Maintenance Due Date [...] patient's age to complete this topic Insurance [facility] [employer] [place] Advance Directives Documents on File Type Date Recorded 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
--- OUTSIDE RECORDS SUMMARY | 2025-04-01 14:02 | XMS_ITS | Patient Health Record ---
Author Organization [facility] Address [address] [place] [address] Care Team Providers Care Manager Ethics Name Role Phone Eladio CHAPA, [facility] Primary Care Provider UnavailDolores Puente Unavailable [phone] Reason For Referral No Information Social History Sex Assigned At : Social History Observation Description Sex Assigned At Female Encounters Encounter Location Date Provider Diagnosis [facility] [address] [facility] [address] [place] [address] 12/26/2024 Dolores Vaughn [facility] [address] [place] [address] 01/14/2025 Dolores Vaughn Plan Of Treatment No Information Insurance Providers Payer Name Payer Address Payer Phone Subscriber Number Group Number Insured Name Patient Relationship to Insured Coverage Start Date Coverage End Date [facility] [address] [place] [address] [id number] Linda Richardson Self - patient is the insured
--- OUTSIDE RECORDS SUMMARY | 2025-04-01 14:02 | XMS_ITS | Clinical Summary ---
Author Organization [facility] [employer] Address [address] [facility] [place] [address] Care Team Providers Care Biscuit Maker Name Role Phone Ja Hendricks MD Primary Care Provider [phone] Source Comments [facility] [employer],non-owned Affiliates and Associated Physician Practices is amultiple site organization consisting of ambulatory clinics and hospital sitesin [place], [place], [place] and [place]. This disclosure is being madepursuant to the Care Everywhere program and may not contain all information available regarding this patient. 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 Gender Identity Not on file Sexual Orientation [...] 0.01 <1.00 [facility] Comment: Test Performed at: [place] [facility] [address] [place] [address] BENITEZ CAT DO,MPH 10/22/2017 8:51 AM CDT 10/22/2017 8:53 AM CDT Ana Paula York MD LAB - CHEMISTRY ORDERA BLEEbenezer Final Result [facility] [address] [place] [address] from Last 3 Months or Most Recently Relevant to Health Maintenance Insurance [employer] Member Subscriber Plan / Payer (Ef fective 2022-Present) Name:Pachecojey Erik Jin Relation to Subscriber:Self Name:Shimon Richardsonher Jin Payer ID:[id number] (NAIC) Type:PPO Address: [address] [place] Care Teams Biscuit Maker Relationship Specialty Start Date End Date Ja Hendricks MD [address] [place], [place] [id number] PCP - General 06/08/21
--- OUTSIDE RECORDS SUMMARY | 2025-04-01 14:02 | XMS_ITS | Clinical Summary ---
Author Organization [facility] Address [address] [place] [address] Phone Care Team Providers Care Automotive Tire Tester Name Role Phone Vlad Gonzales Primary Care Provider [phone] Allergies No known active allergies Medications hydroxychloroqui [...] 03/12/2025 1:50 PM CDT Emergency [facility] [address] [place] [address] Devan Douglas MD Chest pain, unspecified type [...] by Leobardo Pradhan M.D. CH: Report ID: [id number] Reading Location: [id number] Procedure Note Leobardo Pradhan Jr., MD - [...] Leobardo Pradhan M.D. CH: MARISELA Report ID: [id number] Reading Location: [id number] IMPRESSION: No acute cardiopulmonary abnormality. Jer Shah [facility] IMG DIAGNOSTIC ORDER ELDER Final Result * TROPONIN I, HIGH SENSITIVITY (HSTRP) (03/12/2025 10:11 AM CDT) Pathologist [facility] TROPONIN I, HIGH SENSITIVITY- [facility] <2.7 <=14.0 ng/L 03/12/2025 10:53 AM CDT [facility] Comment: High-sensitivity troponin I results are reported in ng/L making the result appear to be 1,000 times higher than the contemporary troponin I value which is reported in ng/ml. Results from [place]. Blood Venipuncture / Unknown 03/12/2025 10:11 AM CDT 03/12/2025 10:21 AM CDT us Jer LAM CHEMISTRY ORDERABLES Final Result Performing Organization Address City/[facility]/ZIP Co de Phone Number [facility] [address] [place] [address] * Gold Top Tube (03/12/2025 10:11 AM CDT) Blood No Phlebotomy Charged / Unknown 03/12/2025 10:11 AM CDT 03/12/2025 10:27 AM CDT us Devan Douglas MD CHEMISTRY ORDERABLES F inal Result Performing Organization Address City/[facility] Co de Phone Number [facility] [address] [place] [address] * Blue Top Tube (03/12/2025 10:11 AM CDT) Blood No Phlebotomy Charged / Unknown 03/12/2025 10:11 AM CDT 03/12/2025 10:27 AM CDT us Devan Douglas MD HEMATOLOGY ORDERABLES Final Result Performing Organization Address City/[facility] Co de Phone Number [facility] [address] [place] [address] * (ABNORMAL) CBC with Auto Differential (03/12/2025 10:11 AM CDT) WBC 5.58 4.00 - 12.00 10(3)/mcL 03/12/2025 10:31 AM CDT [facility] RBC 4.52 3.80 - 5.30 10(6)/mcL 03/12/2025 10:31 AM CDT [facility] HEMOGLOBIN (HGB) 13.4 12.0 - 15.8 g/dL 03/12/2025 10:31 AM CDT [facility] HEMATOCRIT (HCT) 39.2 36.0 - 47.0 % 03/12/2025 10:31 AM CDT [facility] MCV 86.7 82.0 - 96.0 fL 03/12/2025 10:31 AM CDT [facility] MCH 29.6 26.0 - 34.0 pg 03/12/2025 10:31 AM CDT [facility] MCHC 34.2 31.0 - 36.0 g/dL 03/12/2025 10:31 AM CDT [facility] PLATELET COUNT 298 140 - 440 10(3)/mcL 03/12/2025 10:31 AM CDT [facility] RDW 11.9 11.8 - 15.5 % 03/12/2025 10:31 AM CDT [facility] MPV 9.2(L) 9.7 - 12.4 fL 03/12/2025 10:31 AM CDT [facility] NEUTROPHILS 52.9 47.0 - 73.0 % 03/12/2025 10:31 AM CDT [facility] LYMPHOCYTES 35.7 18.0 - 42.0 % 03/12/2025 10:31 AM CDT [facility] MONOCYTES 8.8 4.0 - 12.0 % 03/12/2025 10:31 AM CDT [facility] EOSINOPHILS 2.0 0.0 - 5.0 % 03/12/2025 10:31 AM CDT [facility] BASOPHILS 0.4 0.0 - 1.0 % 03/12/2025 10:31 AM CDT [facility] IMMATURE GRANULOCYTE 0.2 0.0 - 0.4 % 03/12/2025 10:31 AM CDT [facility] ABSOLUTE NEUTROPHILS 2.96 1.60 - 7.70 10(3)/mcL 03/12/2025 10:31 AM CDT [facility] ABSOLUTE LYMPHOCYTES 1.99 1.30 - 3.20 10(3)/mcL 03/12/2025 10:31 AM CDT [facility] ABSOLUTE MONOCYTES 0.49 0.20 - 1.00 10(3)/mcL 03/12/2025 10:31 AM CDT [facility] ABSOLUTE EOSINOPHIL 0.11 0.00 - 0.40 10(3)/mcL 03/12/2025 10:31 AM CDT [facility] ABSOLUTE BASOPHILS 0.02 0.00 - 0.10 10(3)/mcL 03/12/2025 10:31 AM CDT [facility] ABSOLUTE IMMATURE GRANULOCYTE 0.01 0.00 - 0.03 10 (3) mcL. 03/12/2025 10:31 AM CDT [facility] NRBC PER 100 WBC 0 03/12/20 10:31 AM CDT [facility] Blood Venipuncture / Unknown 03/12/2025 10:11 AM CDT 03/12/2025 10:21 AM CDT us Jer Shah PAC HEMATOLOGY ORDERABLE S Final Result [facility] [address] [place] [address] * (ABNORMAL) Comprehensive Metabolic Panel (Cmp) [id number] (03/12/2025 10:11 AM CDT) SODIUM 140 136 - 145 mmol/L 03/12/2025 10:50 AM CDT [facility] POTASSIUM 3.5 3.5 - 5.1 mmol/L 03/12/2025 10:50 AM CDT [facility] CHLORIDE 104 98 - 107 mmol/L 03/12/2025 10:50 AM CDT [facility] CO2, VENOUS 26 22 - 30 mmol/L 03/12/2025 10:50 AM CDT [facility] ANION GAP 13.5 <18.0 mmol/L 03/12/2025 10:50 AM CDT [facility] GLUCOSE 102(H) 70 - 99 mg/dL 03/12/2025 10:50 AM CDT [facility] BUN 12 5 - 18 mg/dL 03/12/2025 10:50 AM CDT [facility] CREATININE, BLOOD 0.71 0.60 - 1.00 mg/dL 03/12/2025 10:50 AM CDT [facility] BUN/CREATININE RATIO 17 12 - 20 ratio 03/12/2025 10:50 AM CDT [facility] TOTAL PROTEIN 7.2 6.0 - 8.0 g/dL 03/12/2025 10:50 AM CDT [facility] ALBUMIN 4.6 3.5 - 5.0 g/dL 03/12/2025 10:50 AM CDT [facility] A/G RATIO 1.8 1.0 - 2.2 03/12/2025 10:50 AM CDT [facility] CALCIUM 9.0 8.7 - 10.5 mg/dL 03/12/2025 10:50 AM CDT [facility] T BILI 1.1 0.2 - 1.2 mg/dL 03/12/2025 10:50 AM CDT [facility] SGOT (AST) 20 <43 U/L 03/12/2025 10:50 AM [facility] SGPT (ALT) 15 <56 U/L 03/12/2025 10:50 AM T [facility] ALKALINE PHOSPHATASE 63 40 - 150 U/L 03/12/2025 10:50 AM [facility] GFR, ESTIMATED >60 >=60 03/12/2025 10:50 AM T [facility] Comment: Creatinine Clearance is the preferred criteria for selecting drug dose adjustments in renally impaired patients. The GFR is provided as additional pertinent clinical information. GFR is reported in mL/min/1.73 sq m. Calculation based on the 2020 Chronic Kidney Disease Epidemiology Collaboration (CKD-EPI) equation refit without adjustment for race. GFR, EST. >60 >=60 025 10:50 AM CDT [facility] Comment: Creatinine Clearance is the preferred criteria for selecting drug dose adjustments in renally impaired patients. The GFR is provided as additional pertinent clinical information. GFR is reported in mL/min/1.73 sq m. Calculation based on the 2009 Chronic Kidney Disease Epidemiology Collaboration (CKD-EPI). GFR, EST. NONAFRICAN >60 >=60 03/12/2025 10:50 AM CDT [facility] Comment: Creatinine Clearance is the preferred criteria for selecting drug dose adjustments in renally impaired patients. The GFR is provided as additional pertinent clinical information. GFR is reported in mL/min/1.73 sq m. Calculation based on the 2009 Chronic Kidney Disease Epidemiology Collaboration (CKD-EPI). Blood Venipuncture / Unknown 03/12/2025 10:11 AM CDT 03/12/2025 10:21 AM CDT Jer Shah PAC CHEMISTRY ORDERABLES Final Result [facility] [place] [address] * EKG 12 LEAD (03/12/2025 9:49 AM CDT) Ventricular Rate 65 BPM EXTERNAL EKG Atrial Rate 65 BPM EXTERNAL EKG P-R Interval 138 ms EXTERNAL EKG QRS Duration 72 ms EXTERNAL EKG Q-T Duration 398 ms EXTERNAL EKG QTC CALCULATION 413 ms EXTERNAL EKG P [place] 73 degrees EXTERNAL EKG R [place] 58 degrees EXTERNAL EKG T [place] 21 degrees EXTERNAL EKG 03/12/2025 9:49 AM CDT Impressions EXTERNAL EKG - 03/12/2025 5:47 PM CDT Normal sinus rhythm Normal ECG When compared with ECG of 21-DEC-2024 21:57, No significant change was found Confirmed by ABHINAV DODSON ([id number]) on 03/12/2025 5:47:31 PM Narrative Procedure Note Abhinav Dodson MD - 03/12/2025 IMPRESSION: Normal sinus rhythm Normal ECG When compared with ECG of 21-DEC-2024 21:57, No significant change was found Confirmed by ABHINAV DODSON ([id number]) on 03/12/2025 5:47:31 PM us Devan Douglas MD IMG ECG ORDERABLES Fin al Result EXTERNAL EKG * EKG SCAN (03/12/2025 12:00 AM CDT) 03/12/2025 us Provider Scan IMG ECG ORDERABLES Final Result RESULTING AGENCY from Last 3 Months Insurance [facility] Care Teams Automotive Tire Tester Relationship Specialty Start Date End Date Vlad Gonzales [address] [place] [address] PCP - General Family Medicine 03/12/25
--- OUTSIDE RECORDS SUMMARY | 2025-04-01 14:02 | XMS_ITS | Encounter Summary ---
Author Organization [facility] Address [address] [place] [address] Care Team Providers Care Swimming Pool Service Technician Name Role Phone Ja Hendricks MD Primary Care Provider [phone] Reason for Visit * Reason Onset Date Comments Nurse Only 07/28/2023 Encounter Details Date Type Department Care Team (Late st Contact Info) Description 07/28/2023 Telephone [facility] - Dermatology [address] [place] [address], [facility] [place] [address] Jeanine Cummins MD [address] [place] [address] 3 [place] [address] Nurse Only Social History Tobacco Use Types Packs/Day Years Used Date Smoking Tobacco: Former Cigarettes Smokeless Tobacco: Never Alcohol Use Standard Drinks/Week Comments No 0 (1 standard drink = 0.6 oz pur e alcohol) Comments Unknown Sex and Gender Information Value Date Recorded Sex Assigned at Not on file Legal Sex Female 5:33 AM CONTENT EDITOR Gender Identity Not on file Sexual Orientation Not on file documented as of this encounter Miscellaneous Notes * Telephone Encounter - Jeanine Cummins MD - 07/29/2023 10:32 AM CONTENT EDITOR New referral order placed by Dr. Chavez on 07/28/23. ENT EDITOR * Telephone Encounter - López Sanabria - 07/28/2023 2:46 PM CST Pt states she needs a new referral from Derm to [facility]. She has an appt on 08/08 and provider states she needs a new referral for 2023 ENT EDITOR documented in this encounter Plan of Treatment Not on file documented as of this encounter Visit Diagnoses Not on filedocumented in this encounter Care Teams Swimming Pool Service Technician Relationship Specialty Start Date End Date Ja Hendricks MD [address] [place], [place] [id number] PCP - General 06/08/21 documented as of this encounter
--- OUTSIDE RECORDS SUMMARY | 2025-04-01 14:02 | XMS_ITS | Clinical Summary ---
Author Organization [facility] Address [address] [place] [address] Phone Care Team Providers Care Colored Leather Setter Name Role Phone Vlad Gonzales MD Primary Care Provider [phone] Allergies No known active allergies Medications valacyclovir [...] Comments Blood Pressure 132/62 07/14/2018 7:19 AM TOOL AND FIXTURE REPAIRER Pulse 68 07/14/2018 7:19 AM TOOL AND FIXTURE REPAIRER Temperature 36.8 C (98.3 F) 07/14/2018 7:19 AM TOOL AND FIXTURE REPAIRER Respiratory Rate 18 07/14/2018 7:19 AM TOOL AND FIXTURE REPAIRER Oxygen Saturation 93% 07/12/2018 12:00 PM TOOL AND FIXTURE REPAIRER Inhaled Oxygen Concentration - - Weight 111.6 kg (246 lb) 07/11/2018 12:59 PM TOOL AND FIXTURE REPAIRER Height 160 cm (5' 3) 07/11/2018 12:59 PM TOOL AND FIXTURE REPAIRER Body Mass Index 43.58 07/11/2018 12:59 PM TOOL AND FIXTURE REPAIRER Plan of Treatment Health Maintenance Due Date Last Done Comments DTAP/TDAP/TD VACCINES (1 - Tdap) 2004 HEPATITIS B VACCINES (1 of 3 - 19+ 3-dose series) 08/18 HPV/Cotest (21-29) 2006 HPV VACCINES (1 - 3-dose SCDM series) 2012 CERVICAL CANCER SCREENING 2015 HPV/Cotest (30-65) 2015 PAP SMEAR 2015 INFLUENZA VACCINE (#1) 2025 Insurance [facility] BLUE ACCESS CHOICE Advance Directives For more information, please contact: [phone] * Full Code (Latest Code Status on File) Date Activated Date Inactivated Comments 07/12/2018 5:00 PM 07/14/2018 3:18 PM * Full Code Date Activated Date Inactivated Comments 07/11/2018 2:54 PM 07/12/2018 5:00 PM * Full Code Date Activated Date Inactivated Comments 07/11/2018 2:54 PM 07/11/2018 2:54 PM Care Teams Colored Leather Setter Relationship Specialty Start Date End Date Vlad Gonzales MD [address] [place] [address] PCP - General Family Practice 02/22/18
== END 2025-04-01 11:55 | disposition home or self-care (01) ==
PROVIDERS: PCP Emergency Medicine; Visit Provider Surgery
DX: K81.1 Chronic cholecystitis (principal)
CPT/HCPCS: 36415; 80076; 82150; 83690; 85025

== ENCOUNTER 2025-04-05 05:50 | Day surgery (SDC) | payer BC, SELFPAY ==
--- OUTSIDE RECORDS SUMMARY | 2023-01-12 02:30 | XMS_ITS | Continuity of Care Document ---
Author Organization [email or web address] [place] Address [address] [place] [address] Phone Care Team Providers Care Agency Legal Counsel Name Role Phone [place] PT,MPT,ATC, Christ Unavailable Unavai lable Procedures Procedure Date Therapeutic Activities Neuromuscular Re-Ed Therapeutic Exercise PT Re-evaluation Therapeutic Activities Therapeutic Activities Neuromuscular Re-Ed Therapeutic Exercise Manual Therapy Therapeutic Activities Neuromuscular Re-Ed Therapeutic Exercise Manual Therapy Therapeutic Activities Neuromuscular Re-Ed Therapeutic Exercise Manual Therapy Therapeutic Activities Neuromuscular Re-Ed Therapeutic Exercise Manual Therapy PT Re-evaluation Therapeutic Activities Neuromuscular Re-Ed Therapeutic Exercise Manual Therapy Therapeutic Activities Neuromuscular Re-Ed Therapeutic Exercise Manual Therapy Therapeutic Activities Neuromuscular Re-Ed Therapeutic Exercise Manual Therapy Therapeutic Activities Neuromuscular Re-Ed Therapeutic Exercise Manual Therapy Therapeutic Activities Neuromuscular Re-Ed Therapeutic Exercise Manual Therapy Therapeutic Activities Neuromuscular Re-Ed Therapeutic Exercise Therapeutic Activities Neuromuscular Re-Ed Therapeutic Exercise Manual Therapy Therapeutic Activities Neuromuscular Re-Ed Therapeutic Exercise Manual Therapy Therapeutic Activities Neuromuscular Re-Ed Therapeutic Exercise Therapeutic Activities Neuromuscular Re-Ed Therapeutic Exercise Manual Therapy Therapeutic Activities Neuromuscular Re-Ed Therapeutic Exercise PT Re-evaluation Therapeutic Activities Therapeutic Exercise Therapeutic Activities Therapeutic Exercise Therapeutic Activities Therapeutic Exercise Hot or Cold Pack Therapeutic Activities Therapeutic Exercise Therapeutic Activities Therapeutic Exercise Therapeutic Activities Therapeutic Exercise Hot or Cold Pack Therapeutic Activities Therapeutic Exercise Hot or Cold Pack PT Evaluation Moderate Complexity Therapeutic Exercise Therapeutic Activities Therapeutic Activities Neuromuscular Re-Ed Therapeutic Exercise Manual Therapy Therapeutic Activities Neuromuscular Re-Ed Therapeutic Exercise Manual Therapy Therapeutic Activities Neuromuscular Re-Ed Electrical Stimulation Hot or Cold Pack Progress Note Neuromuscular Re-Ed Therapeutic Activities Therapeutic Activities Neuromuscular Re-Ed Therapeutic Exercise Therapeutic Activities Neuromuscular Re-Ed Therapeutic Activities Neuromuscular Re-Ed Therapeutic Activities Neuromuscular Re-Ed Therapeutic Exercise Neuromuscular Re-Ed Therapeutic Activities Therapeutic Exercise Neuromuscular Re-Ed Progress Note Therapeutic Activities Therapeutic Exercise Therapeutic Activities Neuromuscular Re-Ed Therapeutic Exercise Neuromuscular Re-Ed Therapeutic Activities Therapeutic Exercise Therapeutic Activities Neuromuscular Re-Ed Therapeutic Exercise Progress Note Therapeutic Activities Neuromuscular Re-Ed Therapeutic Exercise Therapeutic Activities Therapeutic Exercise Neuromuscular Re-Ed Therapeutic Activities Neuromuscular Re-Ed Therapeutic Exercise Neuromuscular Re-Ed Therapeutic Activities Therapeutic Exercise Therapeutic Activities Neuromuscular Re-Ed Therapeutic Exercise PT Re-evaluation Therapeutic Activities Therapeutic Exercise Neuromuscular Re-Ed Therapeutic Activities Neuromuscular Re-Ed Therapeutic Exercise Therapeutic Activities Therapeutic Exercise Neuromuscular Re-Ed Neuromuscular Re-Ed Therapeutic Exercise Therapeutic Activities Therapeutic Activities Neuromuscular Re-Ed Therapeutic Exercise Neuromuscular Re-Ed Therapeutic Exercise Therapeutic Activities Therapeutic Activities Neuromuscular Re-Ed Therapeutic Exercise Electrical Stimulation Hot or Cold Pack Therapeutic Exercise Neuromuscular Re-Ed Manual Therapy Electrical Stimulation Therapeutic Activities Neuromuscular Re-Ed Therapeutic Exercise PT Evaluation Moderate Complexity Therapeutic Activities Therapeutic Exercise Neuromuscular Re-Ed [place] Directives Directive Yes / No Effective Date File Name No Information Encounters Encounter Description Practice Location Reason(s) For Visit Diagnoses Date Provider Providers Copied on Encounter [facility], [place], [place], [id number], tel:[phone] [place] No Information 3 [place], [place]. Referring Provider: Nate Esquivel [address], [place], [address]. tel:[phone] [facility] [address], [place], [place], [address], tel:[phone] [place] No Information 3 [place]. Referring Provider: Nate Esquivel, [address], [place], [address]. tel:[phone] [facility] [address], [place], [place], [address], tel:[phone] [place] No Information 3 [place]. Referring Provider: Nate Esquivel [address], [place], [address]. tel:[phone] [facility], [address], [place], [place], [address], [place] tel:[phone] [place] No Information 0 3 [place]. [place]. Referring Provider: Nate Esquivel, [address], [place], [address]. tel:[phone] [facility], [address], [place], [place], [address], [place] tel:[phone] [place] No Information November-2 [facility] [place] [place]. Referring Provider: Nate Esquivel, [address], [place], [address]. tel:[phone] [facility], [facility] [address], [place], [place], [address], [place] tel:[phone] [place] No Information November- 3 [facility] [place]. Referring Provider: Nate Esquivel, [address], [place], [address]. tel:[phone] [facility], [address], [place], [place], [address], [place] tel:[phone] [place] No Information November- 0 3 [facility] [place]. Referring Provider: Nate Esquivel, [address], [place], [address]. tel:[phone] [facility], [address], [place], [place], [address], [place] tel:[phone] [place] No Information 0 3 [place]. , [place], [place]. Referring Provider: aNte Esquivel, [address], [place], [address]. tel:[phone] [facility], [address], [place], [place], [address], [place] tel:[phone] [place] No Information November-0 3 [place]. , [place], [place]. Referring Provider: Nate Esquivel [address], [place], [address]. tel:[phone] [facility], [address], [place], [place], [address], [place] tel:[phone] [place] No Information 0 3 [place]. , [place], [place]. Referring Provider: Nate Esquivel, [address], [place], [address]. tel:[phone] [facility], [facility] [address], [place], [place], [address], [place] tel:[phone] [place] No Information Oct-2 3 [place]. , [place], [place]. Referring Provider: Nate Esquivel [address], [place], [address]. tel:[phone] [facility], [address], [place], [place], [address], [place] tel:[phone] [place] No Information 2 3 [place]. , [place], [place]. Referring Provider: Nate Esquivel [address], [place], [address]. tel:[phone] [facility] [address], [place], [place], [address], [place] tel:[phone] [place] No Information Oct-2 3 [place]. , [place]. Referring Provider: Nate Esquivle [address], [place], [address]. tel:[phone] [facility] [address], [place], [place], [address], [place] tel:[phone] [place] No Information Oct-1 3 [place]. , [place]. Referring Provider: Nate Esquivel [address], [place], [address]. tel:[phone] [facility], [address], [place], [place], [address], [place] tel:[phone] [place] No Information Apr-1 2-202 3 [place]. , [place], [place]. Referring Provider: Nate Esquviel, [address], [place], [address]. tel:[phone] [facility], [address], [place], [place], [address], [place] tel:[phone] [place] No Information Apr-0 4-202 3 [place]. , [place], [place]. Referring Provider: Nate Esquivel, [address], [place], [address]. tel:[phone] [facility], [address], [place], [place], [address], [place] tel:[phone] [place] No Information Apr-0 3-202 3 [place]. , [place]. Referring Provider: Nate Esquivel, [address], [place], [address]. tel:[phone] [facility], [address], [place], [place], [address], [place] tel:[phone] [place] No Information Mar-3 0-202 3 [place]. [place]. Referring Provider: Nate Esquivel, [address], [place], [address]. tel:[phone] [facility], [address], [place], [place], [address], [place] tel:[phone] [place] No Information Mar-2 0-202 3 [place]. , [place]. Referring Provider: Nate Esquivel, [address], [place], [address]. tel:[phone] [facility], [address], [place], [place], [address], [place] tel:[phone] [place] No Information 3 [place]. , [place]. Referring Provider: Nate Esquivel [address], [place], [address]. tel:[phone] [facility], [address], [place], [place], [address], [place] tel:[phone] [place] No Information 3 [place]. , [place]. Referring Provider: Nate Esquivel [address], [place], [address]. tel:[phone] [facility], [address], [place], [place], [address], [place] tel:[phone] [place] No Information Aug- 3 [place]. , [place]. Referring Provider: Nate Esquivel [address], [place], [address]. tel:[phone] [facility], [address], [place], [place], [address], [place] tel:[phone] [place] No Information Aug- 3 [place]. , [place]. Referring Provider: Nate Esquivel [address], [place], [address]. tel:[phone] [facility], [address], [place], [address], [place] tel:[phone] [place] No Information b-2 3 [place]. , [place]. Referring Provider: Nate Esquivel [address], [place], [address]. tel:[phone] [facility], [address], [place], [place], [address], [place] tel:[phone] [place] No Information b-2 0 3 [place]. , [place]. Referring Provider: Nate Esquivel [address], [place], [address]. tel:[phone] [facility] [address], [place], [place], [address], [place] tel:[phone] [place] No Information 2 Klahn Yamil. . Referring Provider: Nehal Hernandez [address], [place], [address]. tel:[phone] [facility] [address], [place], [address], [place] tel:[phone] [place] No Information 2 Kllewisn Yamil. . Referring Provider: Nehal Hernandez [address], [place], [address]. tel:[phone] [facility] [address] [place], [place] [address], [place], [place], [address], [place] tel:[phone] [place] No Information 2 Klahn Yamil. . Referring Provider: Nehal Hernandez [address], [place], [address]. tel:[phone] [facility], [place], [place], [address], [place] tel:[phone] [place] No Information 2 Klahn Yamil. . Referring Provider: Nehal Hernandez [address], [place], [address]. tel:[phone] [facility] [address], [place], [place], [address], [place] tel:[phone] [place] No Information 2 [place] Leonard. . Referring Provider: Nehal Hernandez [address], [place], [address]. tel:[phone] [facility], [place], [place], [address], [place] tel:[phone] [place] No Information Dre-2 2 Klahn Yamil. . Referring Provider: Nehal Hernandez [address], [place], [address]. tel:[phone] [facility], [address] [place], [place] [address], [place], [place], [address], [place] tel:[phone] [place] No Information Dre-2 2 Klahn Yamil. . Referring Provider: Nehal Hernandez [address], [place], [address]. tel:[phone] [facility] [address], [place], [place], [address], tel:[phone] [place] No Information Dre-2 2 Klahn Yamil. . Referring Provider: Nehal Hernandez [address], [place], [address]. tel:[phone] [facility], [facility] [address], [place], [place], [address], [place] tel:[phone] [place] No Information Dec-1 2 Klahn Yamil. . Referring Provider: Nehal Hernandez [address], [place], [address]. tel:[phone] [facility] [address], [place], [place], [address], [place] tel:[phone] [place] No Information Dec-1 2 Kln Yaiml. . Referring Provider: Nehal Hernandez [address], [place], [address]. tel:[phone] [facility], [address], [place], [place], [address], [place] tel:[phone] [place] No Information Dre-0 2 [place] Referring Provider: Nehal Hernandez [address], [place], [address]. tel:[phone] [facility] [address], [place], [address], [place] tel:[phone] [place] No Information 2 Klahn Yamil. . Referring Provider: Nehal Hernandez [address], [place], [address]. tel:[phone] [facility], [address], [place], [place], [address], [place] tel:[phone] [place] No Information 2 Klahn Yamil. . Referring Provider: Nehal Hernandez [address], [place], [address]. tel:[phone] [facility] [address], [place], [place], [address], [place] tel:[phone] [place] No Information 2 Klahn Yamil. . Referring Provider: Nehal Hernandez [address], [place], [address]. tel:[phone] [facility], [place], [place], [address], tel:[phone] [place] No Information 2 Klahn Yamil. . Referring Provider: Nehal Hernandez [address], [place], [address]. tel:[phone] [facility], [place], [place], [address], [place] tel:[phone] [place] No Information 2 Klahn Yamil. . Referring Provider: Nehal Hernandez [address], [place], [address]. tel:[phone] [facility], [address], [place], [place], [address], [place] tel:[phone] [place] No Information November-1 3- 2 [place] Mancini [place]. Referring Provider: Nehal Hernandez [address], [place], [address]. tel:[phone] [facility] [address], [place], [place], [address], [place] tel:[phone] [place] No Information May-0 - 2 Klahn Yamil. . Referring Provider: Nehal Hernandez [address], [place], [address]. tel:[phone] [place] [address] [place], [place] [address], [place], [place], [address], [place] tel:[phone] [place] No Information November-0 2 Klahn Yamil. . Referring Provider: Nehal Hernandez [address], [place], [address]. tel:[phone] [facility] [address], [place], [place], [address], [place] tel:[phone] [place] No Information November-0 2- 2 Klahn Yamil. . Referring Provider: Nehal Hernandez [address], [place], [address]. tel:[phone] [facility] [address], [place], [place], [address], [place] tel:[phone] [place] No Information Oct-2 2 Klahn Yamil. . Referring Provider: Nehal Hernandez [address], [place], [address]. tel:[phone] [facility], [place], [place], [address], [place] tel:[phone] [place] No Information Apr-2 8-202 2 Kl[place] Yamil. . Referring Provider: Nehal Hernandez [address], [place], [address]. tel:[phone] [facility], [address], [place], [place], [address], tel:[phone] [place] No Information 2 Kl[place] Yamil. . Referring Provider: Nehal Hernandez [address], [place], [address]. tel:[phone] [facility] [address], [place], [place], [address], [place] tel:[phone] [place] No Information 2 [place] Claudia. . Referring Provider: Nehal Hernandez [address], [place], [address]. tel:[phone] [facility], [address], [place], [place], [address], [place] tel:[phone] [place] No Information 2 Kllewisn Yamil. . Referring Provider: Nehal Hernandez [address], [place], [address]. tel:[phone] [facility] [address] [place], [place] [address], [place], [place], [address], [place] tel:[phone] [place] No Information 2 Klahn Yamil. . Referring Provider: Nehal Hernandez [address], [place], [address]. tel:[phone] [facility] [address], [place], [place], [address], [place] tel:[phone] [place] No Information 2 Sandyn Yamil. . Referring Provider: Nehal Hernandez [address], [place], [address]. tel:[phone] [facility], [address], [place], [place], [address], [place] tel:[phone] [place] No Information 2 [place]re[place]risten Lobo. . Referring Provider: Nehal Hernandez, [address], [place], [address]. tel:[phone] Family History Family Member Type Diagnosis Age At Onset No Information Payers Payer name Insurance type Covered libertarian ID Authorsetha rositasd(s) [facility] [id number] Evelio Lopez P LI 00 Social History Type Description Quantity Date Captured Comments Sex Female Smoking Status No Information Chief Complaint And Reason For Visit No Information Reason For Referral Reason For Referral No Information History Of Present Illness Encounter Date Complaint History Of Prese nt Illness No Information Functional Status Date Functional Assessmen t No Information Instructions Date Instruction Additional Infor rajesh Giving encouragement to exercise Related to Overweight Giving encouragement to exercise Related to Overweight Giving encouragement to exercise Related to Overweight Giving encouragement to exercise Related to Overweight Giving encouragement to exercise Related to Overweight Giving encouragement to exercise Related to Overweight Assessments Type Assessment Date No Information Patient Care Teams Name Effective Dates (start - stop) Status Members No Information
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
--- OUTSIDE RECORDS SUMMARY | 2025-03-14 09:18 | XMS_ITS | Continuity of Care Document ---
Author Organization 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 Process Name Role Phone Vlad Gonzales MD Unavailable Unavailable Allergies, Adverse Reactions, Alerts Substance Reaction Status Criticality No Known Allergies Active No Inform ation Medications Medication Instructions Dosage Effective Dates (start - stop) Status Comments Viberzi 100 mg tablet take 1 tablet by oral route 2 times every day 100 MG - Active amitriptyline 10 mg tablet take 1 tablet by oral route every bedtime 10 MG - Active avoid driving or operate machines Procedures Procedure Date OFFICE/OUTPATIENT VISIT, EST OFFICE/OUTPATIENT VISIT, EST OFFICE/OUTPATIENT VISIT, EST OFFICE/OUTPATIENT VISIT, EST OFFICE/OUTPATIENT VISIT, EST PREV VISIT, EST, AGE 18-39 OFFICE/OUTPATIENT VISIT, EST OFFICE/OUTPATIENT VISIT, EST OFFICE/OUTPATIENT VISIT, EST OFFICE/OUTPATIENT VISIT, EST OFFICE/OUTPATIENT VISIT, EST OFFICE/OUTPATIENT VISIT, EST OFFICE/OUTPATIENT VISIT, EST PREV VISIT, EST, AGE 18-39 OFFICE/OUTPATIENT VISIT, EST OFFICE/OUTPATIENT VISIT, EST PREV VISIT, EST, AGE 18-39 OFFICE/OUTPATIENT VISIT, EST OFFICE/OUTPATIENT VISIT, EST PREV VISIT, NEW, AGE 18-39 Advance Directives Directive Yes / No Effective Date File Name No Information Encounters Encounter Description Practice Location Reason(s) For Visit Diagnoses Date Provider Providers Copied on Encounter OFFICE/OUTPA TIENT VISIT, [facility], [address], [place], [place], [address], [place] tel:[phone] [facility] abd pain1 (chief complaint) Generalized abdominal painOther specified diseases of gallbladder 5 Christian Chu. [address], [place], [place], [address] , [place]. tel:[phone] Referring Provider: Curtis Ramirez [address], [place], [place], [address]. tel:[phone] OFFICE/OUTPA TIENT VISIT, [facility], [address], [place], [place], [address], [place] tel:[phone] [facility] abd raoul (chief complaint) Irritable bowel syndrome with diarrheaGeneralized Anxiety Disorder 5 Christian Chu. [address], [place], [place], [address] , [place]. tel:[phone] Referring Provider: Curtis Ramirez [address], [place], [place], [address]. tel:[phone] OFFICE/OUTPA TIENT VISIT, [facility], [address], [place], [place], [address], [place] tel:[phone] [facility] abd pain1 (chief complaint) Irritable bowel syndrome with diarrheaGeneralized Anxiety DisorderGeneralized abdominal pain 5 Christian Chu. [address], [place], [place], [address] , [place]. tel:[phone] Referring Provider: Curtis Ramirez [address], [place], [place], [address]. tel:[phone] OFFICE/OUTPA TIENT VISIT, [facility], [address], [place], [place], [address], [place] tel:[phone] [facility] abd pain1 (chief complaint) Irritable bowel syndrome with diarrhea Dre-0 5 Christian Chu. [address], [place], [place], [address] , [place]. tel:[phone] Referring Provider: Curtis Ramirez [address], [place], [place], [address]. tel:[phone] OFFICE/OUTPA TIENT VISIT, EST [facility], [address], [place], [place], [address], [place] tel:[phone] [facility] GI (chief complaint) Irritable bowel syndrome with diarrheaGERD w/o esophagitisGenerali zed Anxiety Disorder 5 Christian Chu. [address], [place], [place], [address] , [place]. tel:[phone] Referring Provider: Curtis Ramirez [address], [place], [place], [address]. tel:[phone] PREV VISIT, EST, AGE 18-39 [facility], [address], [place], [place], [address], [place] tel:[phone] [facility] Physical (chief complaint) Encounter for general adult medical exam w abnormal findingsAbnormal weight gainHerpes simplex infectionSeborrheic dermatitisBell's palsy Oct-0 9 Christian Chu. [address], [place], [place], [address] , [place]. tel:[phone] Referring Provider: Curtis Ramirez [address], [place], [place], [address]. tel:[phone] OFFICE/OUTPA TIENT VISIT, EST [facility], [address], [place], [place], [address], [place] tel:[phone] [facility] bells palsy1 (chief complaint) Cárdenas's palsy 9 Christian Chu. [address], [place], [place], [address] , [place]. tel:[phone] Referring Provider: Curtis Ramirez [address], [place], [place], [address]. tel:[phone] OFFICE/OUTPA TIENT VISIT, [facility], [address], [place], [place], [address], [place] tel:[phone] [facility] bells palsy1 (chief complaint) Cárdenas's palsy 9 Christian Chu. [address], [place], [place], [address] , [place]. tel:[phone] Referring Provider: Vlad Gonzales, [address], [place], [place], [address]. tel:[phone] OFFICE/OUTPA TIENT VISIT, [facility], [address], [place], [place], [address], [place] tel:[phone] [facility] left side facial1 (chief complaint) lupus1 (chief complaint) Systemic lupus erythematosus, unspecifiedOtalgia, left ear 8 Christian Chu. [address], [place], [place], [address] , [place]. tel:[phone] Referring Provider: Vlad Gonzales, [address], [place], [place], [address]. tel:[phone] OFFICE/OUTPA TIENT VISIT, [facility], [address], [place], [place], [address], [place] tel:[phone] [facility] numbness1 (chief complaint) Paresthesia of skin 8 Christian Chu. [address], [place], [place], [address] , [place]. tel:[phone] Referring Provider: Vlad Gonzales [address], [place], [place], [address]. tel:[phone] OFFICE/OUTPA TIENT VISIT, [facility], [address], [place], [place], [address], [place] tel:[phone] [facility] glucose1 (chief complaint) vitami d1 (chief complaint) weight 1 (chief complaint) acne1 (chief complaint) IBS1 (chief complaint) Body mass index (BMI) 40.0-44.9, adultHyperglycemiaA bnormal weight gainIrritable bowel syndrome with diarrhea 8 Christian Chu. [address], [place], [place], [address] , [place]. tel:[phone] Referring Provider: Curtis Ramirez [address], [place], [address]. tel:[phone] OFFICE/OUTPA TIENT VISIT, EST [facility], [address], [place], [place], [address], [place] tel:[phone] [facility] neck pain1 (chief complaint) HTN (chief complaint) acne (chief complaint) AcneEssential (primary) hypertension 8 Christian Lo [address], [place], [place], [address] , [place]. [phone] Referring Provider: Curtis Ramirez [address], [place], [place], [address]. tel:[phone] PREV VISIT, EST, AGE 18-39 [facility], [address], [place], [place], [address], [place] tel:[phone] [facility] Physical (chief complaint) Encounter for general adult medical exam w abnormal findingsAcneEssenti al (primary) hypertensionBody mass index (BMI) 40.0-44.9, adult 8 Christian Chu. [address], [place], [place], [address] , [place]. tel:[phone] Referring Provider: Curtis Ramirez [address], [place], [place], [address]. tel:[phone] OFFICE/OUTPA TIENT VISIT, EST [facility], [address], [place], [address], [place] tel:[phone] [facility] rash1 (chief complaint) acne1 (chief complaint) weight gain1 (chief complaint) HTn (chief complaint) AcneAbnormal weight gainRashEssential (primary) hypertension 7 Christian Chu. [address], [place], [place], [address] , [place]. tel:[phone] Referring Provider: Curtis Ramirez [address], [place], [place], [address]. tel:[phone] PREV VISIT, EST, AGE 18-39 [facility], [address], [place], [place], [address], [place] tel:[phone] [facility] Medicine PHysical (chief complaint) Encounter for general adult medical exam w abnormal findingsViral infectionHyperglyce miaHerpes simplex infection 7 Christian Chu. [address], [place], [place], [address] , [place]. tel:[phone] Referring Provider: Curtis Ramirez [address], [place], [place], [address]. tel:[phone] OFFICE/OUTPA TIENT VISIT, EST [facility], [address], [place], [place], [address], [place] tel:[phone] [facility] back pain (chief complaint) back pain (chief complaint) obesity (chief complaint) Tobacco (chief complaint) STD (chief complaint) Dietary surveillance and counselingLumbagoHi gh risk sexual behaviorBMI 38.0 to 38.9Tobacco use disorder Sep-3 - 5 Christian Chu. [address], [place], [place], [address] , [place]. tel:[phone] Referring Provider: Curtis Ramirez [address], [place], [place], [address]. tel:[phone] PREV VISIT, NEW, AGE 18-39 [facility], [address], [place], [place], [address], [place] tel:[phone] [facility] Physical (chief complaint) Dietary surveillance and counselingRoutine medical exam Dre-0 5 Christian Chu. [address], [place], [place], [address] , [place]. tel:[phone] Family History Family Member Type Diagnosis Age At Onset Brother Problem (finding) Alive and well Mother Problem 67 aortic aneurysm Father Problem 65 CAD Payers Payer name Insurance type Covered libertarian ID Davina frost(s) [facility] [id number] Social History Type Description Quantity Date Captured Comments Alcohol Use Details No Caffeine Use Details Unknown Tobacco Use Status Ex-cigarette smoker 025 Smoking Status Former smoker Sex Female Vital Signs Date / Time: Height Weight BMI Pulse Rate Blood Pressure Temperature Respiratory Rate Body Surface Area Head Circumference BMI percentile Pulse Ox Inhaled Ox 2:56 PM 63.00 in 225.40 lbs 39.9 3 kg/m eter (2) 77 /min 120/80 mm[Hg] 98.0 F 16 /min Chief Complaint And Reason For Visit From encounter dated '03/14/2025 14:18'. abd pain1 (chief complaint). Description: Pt has chronic intermittent nausea, vomiting, especially in the morning but also occurs randomly throughout the day .She states that eating seems make it worse. She also has IBS-D. Pt has some abd pain randomly and sometimes after food as well. she has occasional burning pain Pt states that her symptoms are worse during stress. Pt denies any weight loss .s ,Pt denies any precious GERD Pt had negative EGD and colonoscopy as well. Pt is seeing GI. Pt has chronic anxiety as well. Pt denies any depression or any suicidal or homicidal thought. Pt denies any crying spells .Pt states that the GI symptoms are triggering her anxiety. Pt is on amitriptyline andviberzi which has been helping . Pt had normal gastric empty study, ultrasound but her HIDA scan isabnormal. Plan Of Treatment Date Type Action Status Goal Special diet education compl eted Goal Tobacco cessation counseling completed Goal Tobacco cessation counseling completed Goal Special diet education compl eted Goal Special diet education compl eted Goal Tobacco cessation counseling completed Goal Special diet education compl eted Goal Tobacco cessation counseling completed Goal Special diet education compl eted Goal Special diet education compl eted Referral Referred To: Zacarias Mario [address] [place], [phone] Ordered: Referrals: Zacarias Mario. 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 Evaluate and treat ordered Referral Ordered: Gadiel Powell -[facility] : Psychiatry & Neurology : Neurology (related to Paresthesia of skin) ordered Referral Referred To: Gadiel Powell [address] [place], [place] [id number] Ordered: Referrals: [facility] Phys[facility] : Psychiatry & Neurology : Neurology. Gadiel Powell. Evaluate and treat ordered Referral Ordered: Nehal Strange (related to Acne) ordered Referral Referred To: Nehal Strange [address] [place], [place] [id number] Ordered: Referrals: Nehal Strange. Evaluate and treat ordered History Of Present Illness Encounter Date Complaint History Of Prese nt Illness abd pain1 Pt has chronic i ntermittent nausea, vomiting, especially in the morning but also occurs randomly throughout the day .She states that eating seems make it worse. She also has IBS-D. Pt has some abd pain randomly and sometimes after food as well. she has occasional burning pain Pt states that her symptoms are worse during stress. Pt denies any weight loss . s ,Pt denies any precious GERD Pt had negative EGD and colonoscopy as well. Pt is seeing GI. Pt has chronic anxiety as well. Pt denies any depression or any suicidal or homicidal thought. Pt denies any crying spells .Pt states that the GI symptoms are triggering her anxiety. Pt is on amitriptyline and viberzi which has been helping . Pt had normal gastric empty study, ultrasound but her HIDA scan is abnormal. abd raoul Pt has chronic i ntermittent nausea, vomiting, especially in the morning but also occurs randomly throughout the day .She states that eating seems make it worse. She also has IBS-D. Pt has some abd pain randomly and sometimes after food as well. she has occasional burning pain Pt states that her symptoms are worse during stress. Pt denies any weight loss . s ,Pt denies any precious GERD Pt had negative EGD and colonoscopy as well. Pt is seeing GI. Pt has chronic anxiety as well. Pt denies any depression or any suicidal or homicidal thought. Pt denies any crying spells .Pt states that the GI symptoms are triggering her anxiety. Pt is on amitriptyline and viberzi which has been helping . Pt had ultrasound done but results still pending Pt has HIDA scan scheduled abd pain1 Pt has chronic i ntermittent nausea, vomiting, especially in the morning but also occurs randomly throughout the day .She states that eating seems make it worse. She also has IBS-D. Pt has some abd pain randomly and sometimes after food as well. she has occasional burning pain Pt states that her symptoms are worse during stress. Pt denies any weight loss . Pt currently has FMLA due to frequent diarrhea and nausea, and vomiting and she already exhausted all FMLA and she needs short term disability. Pt is on cholestyramine but not helping either. Pt also failed PPIs ,Pt denies any precious GERD Pt had negative EGD and colonoscopy as well. Pt is seeing GI. Pt has chronic anxiety as well. Pt denies any depression or any suicidal or homicidal thought. Pt denies any crying spells .Pt states that the GI symptoms are triggering her anxiety Pt started amitriptyline and viberzi several days ago and she had normal gastric empty study but HIDA scan denied by insurance. Pt states that amitriptyline and viberzi does help the loose stool and diarrhea but made her constipated. pt feels fatigue and not able to focus with amitriptyline abd pain1 Pt has chronic i ntermittent nausea, vomiting, especially in the morning but also occurs randomly throughout the day .She states that eating seems make it worse. She also has IBS-D. Pt has some abd pain randomly and sometimes after food as well. she has occasional burning pain Pt states that her symptoms are worse during stress. Pt denies any weight loss . Pt currently has FMLA due to frequent diarrhea and nausea, and vomiting and she already exhausted all FMLA and she needs short term disability. Pt is on cholestyramine but not helping either. Pt also failed PPIs ,Pt denies any precious GERD Pt had negative EGD and colonoscopy as well. Pt is seeing GI. Pt has chronic anxiety as well. Pt denies any depression or any suicidal or homicidal thought. Pt denies any crying spells .Pt states that the GI symptoms are triggering her anxiety Pt started amitriptyline and viberzi several days ago and she has HIDA scan and gastric empty study scheduled soon Pt is here for disability paper work GI Pt has chronic i ntermittent nausea, vomiting, especially in the morning but also occurs randomly throughout the day .She states that eating seems make it worse. She also has IBS-D. Pt has some abd pain randomly and sometimes after food as well. she has occasional burning pain Pt states that her symptoms are worse during stress. Pt denies any weight loss . Pt currently has FMLA due to frequent diarrhea and nausea, and vomiting and she already exhausted all FMLA and she needs short term disability. Pt is on cholestyramine but not helping either. Pt also failed PPIs ,Pt denies any precious GERD Pt had negative EGD and colonoscopy as well. Pt is seeing GI. Pt has chronic anxiety as well. Pt denies any depression or any suicidal or homicidal thought. Pt denies any crying spells .Pt states that the GI symptoms are triggering her anxiety Physical Pt needs annual physical. pt has seborrheic dermatitis. Pt has dandruff and occasional scalp itching pt did see dermatology and was prescribed ketoconazole shampoo which works ok. Pt wants refill. 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 Pt has genital herpes. Pt wants valtrex PRn for outbreak. Pt does not want to use daily prophylactic meds. Pt had one outbreak last year. Her partner also has genital herpes. Pt wants to try phentermine for weight loss. Pt is obese. 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 Pt denies any headache. pt took valtrex and she finished steroid Pt notices some improving of movement of left side of her face but she stil has visible left facial droop. Pt is able to partially close her left eye. Pt does have taste change Pt also notices improvement of left forehead movement. her most symptoms is around left cheek. Pt denies any sensory loss Pt denies any irritation of left eye. Pt is able to close left eye now. Pt denies any headache or any other neurological symptoms bells palsy1 Pt c/o acute ons et of left facial droop for 2-3 weeks. Pt denies any numbness and tingling. Pt denies any ear pain Pt denies any neurological weakness. Pt just delivered baby 7 days ago. Pt denies any headache. Pt denies any vision change left side facial1 pt c/o left ea r pain, left side throbbing headache, mild left side lip and tongue numbness x 3 days. Pt denies any facial droop. Pt denies any toothache. Pt denies any vision change. Pt denies any rash or any insect bite lupus1 Pt recently was diagnosed with discoid lupus. Pt is seeing dermatology and rheumatology and she is on cream/topical PRn but she is not sure about the name. Pt has some lesion on face sometimes. numbness1 Pt has numbness right anterior elbow to right side of hand for 4 weeks. Pt states that it occurred after blood draw 4 weeks ago. Pt denies any hand weakness Pt feels fire burning feeling down to right forearm Pt is 19 week and she is off all meds. Pt had blood draw right anterior elbow and she started to have above symptoms right after the blood drawn. pt seen neurologist already and she was told she has some nerve damage from blood draw and she should get better soon pt still feels the same way without any improvement. Pt feels numbness from anterior elbow to dorsal base of right thumb. Pt denies any hand numbness or tingling. Pt denies any worsening symptoms at night. Pt denies any neck pain Pt denies any pain weight 1 Pt has not able to lose weight with diet and exercise vitami d1 Pt has low D glucose1 Pt has mild high glucose, but A1c ok. Pt denies any polyuria, polydipsia IBS1 Pt has chronic l ower GI symptoms including frequent dirrhea without blood. Pt state that she first feel nervous and then she instantly has to go to bathroom for diarrhea. pt has storng family hsitory of ibs. Pt denies any nausea, vomiting, GERD. 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 Pt goes to bathroom frequenlty during the day for diarrhea. pt states that she has anxiety induced acne1 Pt has facial ac ne. Pt is seeing dermatology. Pt is on abx spironolactone, ammonium lactate and also ketoconazole for facial acne and also dandruff acne Additional infor rajesh: P has acne. Pt is waiting for dermatology ed. HTN Her BP is ok tod ay. Pt deneis any chest barnhart or headache neck pain1 Pt states that n lisette pain resolved. 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 Pt actually has not need to take ultram and robaxin since . Her neck pain resolved Physical Pt needs annual physical. Pt turned her head last night and felt acute neck pain. Pt denies any radiculopathy. Pt feels that she has sharp pain radiating to left shoulder and midback. Pt has 7/10 pain especailly when she lies down Pt also has chronic recurrent facial acne. Pt took minocin but did not help. Pt denies any drainage. Pt also tried facial acne meds but did not work either Pt denies any other complaints HTn Pt has HTN. Pt d enies any chest pain or headache weight gain1 Pt has gained so me weight since October and her BMI is almost 40. Pt failed diet and exercise for weight loss. acne1 Pt c/o red infla mmatory acne on face since on nexplanon 3 years ago. Pt stopped nexplanon last month. Pt tried spirnolactone which did not work. Pt denies any drainage. Pt has cystic like acne on face. rash1 Pt c/o acute ons et of rash left neck area for one week. Pt denies any sick contact. Pt notices itching Pt denies any spreading of the rash. Pt tried and failed OTC lotrimin PHysical Pt needs annual physical. Pt states that she has some nausea, vomiting , nonbloody diarreha since yesterday. Pt denies any fever Pt feels cold Pt denies any sore or coughing. Pt c/o mild stomach cramp Pt has decreased appetite for solid food but she is drinking liquid ok. Pt stopped vomiting since this AM Pt has mild diarrhea but is getting better also Pt also has history of mild high glucose and low D Pt denies genital herpes outbreak ever. Pt denies any other complaints back pain Pt was given prd nisone and also felexeril for pain. Pt has not tried yet back pain Additional infor mation: Pt c/o low back pain with sciatica down to both buttock area for 4 days. Pt denies any injury. Pt denies any loss of bowel or bladder control. pt went to er and benign Lspine xray and hip xray showed some arthrits. Pt was diagnosed with scaiatica. Tobacco Pt smokes ecig f or one year. Pt does not smoke any regular cigarette anymore. STD Her previous boy friend has genital herpes. Pt denies any genital herpes. Pt denies any vaginal blisters or urainry symptoms obesity Pertinent negati ves include abdominal pain, anxiety, cold intolerance, constipation, depression, fatigue, headache or vision changes. Additional information: Pt is overweight. Her BMI is around 38. Pt denies any recent weight gain. Pt is not very active. Physical Pt needs annual physical. Pt recently went to ER for sinus infection and ear pain and she recevied amoxil and vicodin. Pt is done with meds and she is doing well now. 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 Pt is done with above meds. Pt wants STD screen. His boyfriend has HSV II. Pt denies any vaginal outbrak. Pt denies any vaginal discahrge, pelvic pain, vaginal discahrge, etc Pt denies any other complaints Instructions Date Instruction Additional Infor mation Weight management Related to Enc ounter for general adult medical exam w abnormal findings Increase physical activity Relat ed to Encounter for general adult medical exam w abnormal findings Special diet education Related t o Body mass index (BMI) 40.0-44.9, adult Special diet education Related t o Body mass index (BMI) 39.0-39.9, adult Weight management Related to Bel l's palsy Weight management Related to Bel l's palsy Special diet education Related t o Body mass index (BMI) 40.0-44.9, adult Special diet education Related t o Body mass index (BMI) 40.0-44.9, adult Increase physical activity Relat ed to Systemic lupus erythematosus, unspecified Compliant with medic ation instruction Related to Paresthesia of skin Special diet education Related t o Body mass index (BMI) 40.0-44.9, adult Increase physical activity Relat ed to Abnormal weight gain Weight management Related to Abn ormal weight gain Weight management Related to Acn e Prescribed Diet Educ ation/Lifestyle Education Regarding Diet Related to Dietary Surveillance and Counseling Prescribed Activity and Exercise Education Related to Dietary Surveillance and Counseling Prescribed Activity and Exercise Education Related to Dietary Surveillance and Counseling Prescribed Diet Educ ation/Lifestyle Education Regarding Diet Related to Dietary Surveillance and Counseling Increase physical activity Relat ed to Encounter for general adult medical exam w abnormal findings Weight management Related to Enc ounter for general adult medical exam w abnormal findings Prescribed Activity and Exercise Education Related to Dietary Surveillance and Counseling Prescribed Diet Educ ation/Lifestyle Education Regarding Diet Related to Dietary Surveillance and Counseling Increase physical activity Relat ed to Acne Weight management Related to Acn e Prescribed Activity and Exercise Education Related to Dietary Surveillance and Counseling Prescribed Diet Educ ation/Lifestyle Education Regarding Diet Related to Dietary Surveillance and Counseling Prescribed Activity and Exercise Education Related to Dietary Surveillance and Counseling Prescribed Diet Educ ation/Lifestyle Education Regarding Diet Related to Dietary Surveillance and Counseling Special diet education Related t o Dietary surveillance and counseling Prescribed activity/ exercise education Related to Dietary surveillance and counseling Assessments Type Assessment Date assessment Generalized abdominal pain assessment Other specified diseases of gall bladder Mental Status Date Cognitive Assessment Orientation - Mather ed to time, place, person, situation.
[2025-03-28 14:42] VITALS: BMI 41.1
--- NOTE | 2025-03-28 15:03 | PC.NURSE ---
Report to the Outpatient Waiting Room, entrance under the green pavilion located off [facility], at time ___7:30AM____ on date ____03/29/25___. Planned Procedure Time: __9:30AM .? Time changes happen often and if your time is changed the preop area will call you the afternoon before. - You and your visitor will be asked to self-screen and do not enter if you have any COVID symptoms. Please call surgeon if you need to reschedule. - A mask is optional within the hospital at this time. Patients may have clear liquids (water, carbonated beverages, clear teas, apple juice) until 3 hours prior to surgery (6:30AM) with a maximum of 20 ounces. - No food from midnight until time of surgery and no smoking, or chewing tobacco (or any form of nicotine). No chewing gum, candy or mints. Take only the following medications with a SIP of water on the morning of surgery: ___MAY USE NEBULIZER NEEDED DO NOT STOP ANY OF YOUR OTHER PRESCRIPTION MEDICATIONS PRIOR TO SURGERY EXCEPT THE FOLLOWING Hold all vitamins and supplements for 3 days per anesthesiologist. Medications to discontinue per physician NONE Date to take last dose Please no make-up, nail yi, hairspray, perfume, deodorant, or body powder the day of surgery.? No jewelry (including any body piercings) or valuables the day of surgery, leave them at home.? Please take a shower or bath the night before, or the morning of, surgery with an antibacterial soap.? Wear comfortable, loose fitting clothing.? Children are encouraged to wear pajamas. - Jewelry must be removed prior to entering the operating room.? Rings and piercings that are not removed may be cut off. - The hospital will not accept responsibility for valuables.? - Please leave all valuables, including medications, at home the day of surgery. If you are going home after surgery, a licensed oil transport driver must drive you home.? - NO public transportation without another adult if you receive anesthesia. - We recommend that an adult stay with you for 24 hours following discharge. - We also recommend that you do not drive, make important decision, drink alcoholic beverages, or take any drugs that were not prescribed by your health care provider for at least 24 hours after your discharge time. For Pediatric surgeries, we recommend two adults accompany the child home. Follow any additional instructions given to you from your surgeon. Telephone instructions given to ____PATIENT and asked if any additional questions and then verbalized understanding. Patient advised to call surgeon office or pre surgery nurse liaison [phone] if any additional questions.
--- OUTSIDE RECORDS SUMMARY | 2025-03-29 03:04 | XMS_ITS | Clinical Summary ---
Author Organization [facility] [place] [address] Address [facility] [place] [address] Care Team Providers Care Athletic Trainer Name Role Phone Ja Hendricks MD Primary Care Provider [phone] Patience Coyle ATHLETIC TRAINER Unavailable Allergies No known active allergies Medications [...] Type Department Care Team Description 01/24/2025 Telephone [facility] Medicine Rheumatology [address] [facility] [address] [place] [address] Mary Salcedo, Teresita Lab Results; Biopsy Results 01/24/2025 Telephone [facility] Medicine Rheumatology [address] [facility] [address] [place] [address] Nia Mayorga NP 01/11/2025 1:20 PM CDT Office Visit [facility] Medicine Rheumatology [address] [facility] [address] [place] [address] Nia Mayorga NP Discoid lupus [...] on file Legal 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
--- OUTSIDE RECORDS SUMMARY | 2025-03-29 03:04 | XMS_ITS | Clinical Summary ---
Author Organization [facility] Address [address] [place] [address] Phone Care Team Providers Care Sales And Service Engineer Name Role Phone Vlad Gonzales Primary Care Provider [phone] Allergies No known active allergies Medications hydroxychloroqui [...] for Severe pain. 12 Tablet 5 Active cyclobenzaprine (FLEXERIL) 10 MG Tablet Take 0.5-1 Tablets by mouth 3 times daily as needed for Muscle spasms or Other (pain) for up to 10 days. 15 Tablet 5 03/22/20 25 Encounters Date Type Department Care Team Description 03/12/2025 9:50 AM CDT - 03/12/2025 1:50 PM CDT Emergency [facility] [address] [place] [address] Devan Douglas MD Chest pain, unspecified type Discharge Disposition: Discharged to home or Selfcare 03/12/2025 Travel from Last 3 Months Social History [...] Sign Reading Time Taken Comments Blood Pressure 133/71 03/12/2025 1:30 PM CDT Pulse 67 03/12/2025 1:30 PM CDT Temperature 37 C (98.6 F) 03/12/2025 9:58 AM CDT Respiratory Rate 18 03/12/2025 1:30 PM CDT Oxygen Saturation 98% 03/12/2025 1:30 PM CDT Inhaled Oxygen Concentration - - Weight 102 kg (224 lb 13.9 oz) 03/12/2025 9:58 A M CDT Height 157.5 cm (5' 2) 03/12/2025 9:58 AM CDT Body Mass Index 41.13 03/12/2025 9:58 AM CDT Plan of Treatment Health Maintenance Due Date Last Done Comments Hepatitis C Virus (HCV) Screening 1985 TdaP Immunization 1985 SARS-COV-2 Immunization (#1) 1990 Hepatitis B Immunization (1 of 3 - 19+ 3-dose series) 2004 Pap Smear 2006 Human Papillomavirus (HPV) Immunization (1 - 3-dose SCDM series) 2012 Cervical Cancer Screening (CCS) 2015 HPV/Cotest 2015 Influenza Immunization (#1) 2025 Respiratory Syncytial Virus (RSV) Immunization (Adult) [...] Comments XR CHEST SINGLE VIEW PORTABLE STAT 03/12/2025 10:21 AM CDT GOLD TOP TUBE STAT 03/12/2025 10:11 AM CDT BLUE TOP TUBE STAT 03/12/2025 10:11 AM CDT CBC WITH AUTO DIFFERENTIAL STAT 03/12/2025 10:11 AM CDT EXTRA TUBES STAT 03/12/2025 10:11 AM CDT TROPONIN I, HIGH SENSITIVITY (HSTRP) STAT 03/12/2025 10:11 AM CDT CMP (COMPREHENSIVE METABOLIC PANEL) STAT 03/12/2025 10:11 AM CDT COMPLETE BLOOD COUNT (CBC) WITH DIFF STAT 03/12/2025 10:11 AM CDT EKG 12 LEAD STAT 03/12/2025 9:49 AM CDT EKG SCAN 03/12/2025 12:00 AM CDT from Last 3 Months Results * XR CHEST SINGLE VIEW PORTABLE (03/12/2025 10:21 AM CDT) Anatomical Region Laterality Modality Chest N/A Computed Radiogr aphy 03/12/2025 12:3 3 PM CDT Impressions 03/12/2025 12:35 PM CDT IMPRESSION: No acute cardiopulmonary abnormality. Narrative 03/12/2025 12:35 PM CDT EXAM DESCRIPTION: XR CHEST SINGLE VIEW PORTABLE REASON FOR STUDY: chest pain that started this morning at 0600 without activity. Pt denies any SOB. No chest hx TECHNIQUE: Frontal radiographic view(s) of the chest. COMPARISON: 12/21/2024. FINDINGS: LUNGS: No focal opacity, pleural effusion, or pneumothorax. An azygous lobe and fissure are noted. HEART/MEDIASTINUM: Cardiac silhouette normal in size. Mediastinal and hilar contours appear normal. LINES/TUBES: None. BONES: No acute osseous abnormality. THIS IS AN ELECTRONICALLY VERIFIED FINAL REPORT 03/12/2025 12:33 PM - Electronically signed by Leobardo Pradhan M.D. CH: Report ID: [id number] Reading Location: [id number] Procedure Note Leobardo Pradhan Jr., MD - 03/12/2025 EXAM DESCRIPTION: XR CHEST SINGLE VIEW PORTABLE REASON FOR STUDY: chest pain that started this morning at 0600 without activity. Pt denies any SOB. No chest hx TECHNIQUE: Frontal radiographic view(s) of the chest. COMPARISON: 12/21/2024. FINDINGS: LUNGS: No focal opacity, pleural effusion, or pneumothorax. An azygous lobe and fissure are noted. HEART/MEDIASTINUM: Cardiac silhouette normal in size. Mediastinal and hilar contours appear normal. LINES/TUBES: None. BONES: No acute osseous abnormality. THIS IS AN ELECTRONICALLY VERIFIED FINAL REPORT 03/12/2025 12:33 PM - Electronically signed by Leobardo Pradhan M.D. CH: MARISELA Report ID: [id number] Reading Location: [id number] IMPRESSION: No acute cardiopulmonary abnormality. Jer Shah [facility] IMG DIAGNOSTIC ORDER ELDER Final Result * TROPONIN I, HIGH SENSITIVITY (HSTRP) (03/12/2025 10:11 AM CDT) Pathologist [facility] TROPONIN I, HIGH SENSITIVITY- [facility] <2.7 <=14.0 ng/L 03/12/2025 10:53 AM CDT [facility] Comment: High-sensitivity troponin I results are reported in ng/L making the result appear to be 1,000 times higher than the contemporary troponin I value which is reported in ng/ml. Results from [place]. Blood Venipuncture / Unknown 03/12/2025 10:11 AM CDT 03/12/2025 10:21 AM CDT us Jer LAM CHEMISTRY ORDERABLES Final Result Performing Organization Address City/[facility]/ZIP Co de Phone Number [facility] [address] [place] [address] * Gold Top Tube (03/12/2025 10:11 AM CDT) Blood No Phlebotomy Charged / Unknown 03/12/2025 10:11 AM CDT 03/12/2025 10:27 AM CDT us Devan Douglas MD CHEMISTRY ORDERABLES F inal Result Performing Organization Address City/[facility] Co de Phone Number [facility] [address] [place] [address] * Blue Top Tube (03/12/2025 10:11 AM CDT) Blood No Phlebotomy Charged / Unknown 03/12/2025 10:11 AM CDT 03/12/2025 10:27 AM CDT us Devan Douglas MD HEMATOLOGY ORDERABLES Final Result Performing Organization Address City/[facility] Co de Phone Number [facility] [address] [place] [address] * (ABNORMAL) CBC with Auto Differential (03/12/2025 10:11 AM CDT) WBC 5.58 4.00 - 12.00 10(3)/mcL 03/12/2025 10:31 AM CDT [facility] RBC 4.52 3.80 - 5.30 10(6)/mcL 03/12/2025 10:31 AM CDT [facility] HEMOGLOBIN (HGB) 13.4 12.0 - 15.8 g/dL 03/12/2025 10:31 AM CDT [facility] HEMATOCRIT (HCT) 39.2 36.0 - 47.0 % 03/12/2025 10:31 AM CDT [facility] MCV 86.7 82.0 - 96.0 fL 03/12/2025 10:31 AM CDT [facility] MCH 29.6 26.0 - 34.0 pg 03/12/2025 10:31 AM CDT [facility] MCHC 34.2 31.0 - 36.0 g/dL 03/12/2025 10:31 AM CDT [facility] PLATELET COUNT 298 140 - 440 10(3)/mcL 03/12/2025 10:31 AM CDT [facility] RDW 11.9 11.8 - 15.5 % 03/12/2025 10:31 AM CDT [facility] MPV 9.2(L) 9.7 - 12.4 fL 03/12/2025 10:31 AM CDT [facility] NEUTROPHILS 52.9 47.0 - 73.0 % 03/12/2025 10:31 AM CDT [facility] LYMPHOCYTES 35.7 18.0 - 42.0 % 03/12/2025 10:31 AM CDT [facility] MONOCYTES 8.8 4.0 - 12.0 % 03/12/2025 10:31 AM CDT [facility] EOSINOPHILS 2.0 0.0 - 5.0 % 03/12/2025 10:31 AM CDT [facility] BASOPHILS 0.4 0.0 - 1.0 % 03/12/2025 10:31 AM CDT [facility] IMMATURE GRANULOCYTE 0.2 0.0 - 0.4 % 03/12/2025 10:31 AM CDT [facility] ABSOLUTE NEUTROPHILS 2.96 1.60 - 7.70 10(3)/mcL 03/12/2025 10:31 AM CDT [facility] ABSOLUTE LYMPHOCYTES 1.99 1.30 - 3.20 10(3)/mcL 03/12/2025 10:31 AM CDT [facility] ABSOLUTE MONOCYTES 0.49 0.20 - 1.00 10(3)/mcL 03/12/2025 10:31 AM CDT [facility] ABSOLUTE EOSINOPHIL 0.11 0.00 - 0.40 10(3)/mcL 03/12/2025 10:31 AM CDT [facility] ABSOLUTE BASOPHILS 0.02 0.00 - 0.10 10(3)/mcL 03/12/2025 10:31 AM CDT [facility] ABSOLUTE IMMATURE GRANULOCYTE 0.01 0.00 - 0.03 10 (3) mcL. 03/12/2025 10:31 AM CDT [facility] NRBC PER 100 WBC 0 03/12/20 10:31 AM CDT [facility] Blood Venipuncture / Unknown 03/12/2025 10:11 AM CDT 03/12/2025 10:21 AM CDT us Jer Shah PAC HEMATOLOGY ORDERABLE S Final Result [facility] [address] [place] [address] * (ABNORMAL) Comprehensive Metabolic Panel (Cmp) [id number] (03/12/2025 10:11 AM CDT) SODIUM 140 136 - 145 mmol/L 03/12/2025 10:50 AM CDT [facility] POTASSIUM 3.5 3.5 - 5.1 mmol/L 03/12/2025 10:50 AM CDT [facility] CHLORIDE 104 98 - 107 mmol/L 03/12/2025 10:50 AM CDT [facility] CO2, VENOUS 26 22 - 30 mmol/L 03/12/2025 10:50 AM CDT [facility] ANION GAP 13.5 <18.0 mmol/L 03/12/2025 10:50 AM CDT [facility] GLUCOSE 102(H) 70 - 99 mg/dL 03/12/2025 10:50 AM CDT [facility] BUN 12 5 - 18 mg/dL 03/12/2025 10:50 AM CDT [facility] CREATININE, BLOOD 0.71 0.60 - 1.00 mg/dL 03/12/2025 10:50 AM CDT [facility] BUN/CREATININE RATIO 17 12 - 20 ratio 03/12/2025 10:50 AM CDT [facility] TOTAL PROTEIN 7.2 6.0 - 8.0 g/dL 03/12/2025 10:50 AM CDT [facility] ALBUMIN 4.6 3.5 - 5.0 g/dL 03/12/2025 10:50 AM CDT [facility] A/G RATIO 1.8 1.0 - 2.2 03/12/2025 10:50 AM CDT [facility] CALCIUM 9.0 8.7 - 10.5 mg/dL 03/12/2025 10:50 AM CDT [facility] T BILI 1.1 0.2 - 1.2 mg/dL 03/12/2025 10:50 AM CDT [facility] SGOT (AST) 20 <43 U/L 03/12/2025 10:50 AM [facility] SGPT (ALT) 15 <56 U/L 03/12/2025 10:50 AM T [facility] ALKALINE PHOSPHATASE 63 40 - 150 U/L 03/12/2025 10:50 AM [facility] GFR, ESTIMATED >60 >=60 03/12/2025 10:50 AM T [facility] Comment: Creatinine Clearance is the preferred criteria for selecting drug dose adjustments in renally impaired patients. The GFR is provided as additional pertinent clinical information. GFR is reported in mL/min/1.73 sq m. Calculation based on the 2020 Chronic Kidney Disease Epidemiology Collaboration (CKD-EPI) equation refit without adjustment for race. GFR, EST. >60 >=60 025 10:50 AM CDT [facility] Comment: Creatinine Clearance is the preferred criteria for selecting drug dose adjustments in renally impaired patients. The GFR is provided as additional pertinent clinical information. GFR is reported in mL/min/1.73 sq m. Calculation based on the 2009 Chronic Kidney Disease Epidemiology Collaboration (CKD-EPI). GFR, EST. NONAFRICAN >60 >=60 03/12/2025 10:50 AM CDT [facility] Comment: Creatinine Clearance is the preferred criteria for selecting drug dose adjustments in renally impaired patients. The GFR is provided as additional pertinent clinical information. GFR is reported in mL/min/1.73 sq m. Calculation based on the 2009 Chronic Kidney Disease Epidemiology Collaboration (CKD-EPI). Blood Venipuncture / Unknown 03/12/2025 10:11 AM CDT 03/12/2025 10:21 AM CDT Jer Shah PAC CHEMISTRY ORDERABLES Final Result [facility] [address] [place] [address] * EKG 12 LEAD (03/12/2025 9:49 AM CDT) Ventricular Rate 65 BPM EXTERNAL EKG Atrial Rate 65 BPM EXTERNAL EKG P-R Interval 138 ms EXTERNAL EKG QRS Duration 72 ms EXTERNAL EKG Q-T Duration 398 ms EXTERNAL EKG QTC CALCULATION 413 ms EXTERNAL EKG P [place] 73 degrees EXTERNAL EKG R [place] 58 degrees EXTERNAL EKG T [place] 21 degrees EXTERNAL EKG 03/12/2025 9:49 AM CDT Impressions EXTERNAL EKG - 03/12/2025 5:47 PM CDT Normal sinus rhythm Normal ECG When compared with ECG of 21-DEC-2024 21:57, No significant change was found Confirmed by ABHINAV DODSON ([id number]) on 03/12/2025 5:47:31 PM Narrative Procedure Note Abhinav Dodson MD - 03/12/2025 IMPRESSION: Normal sinus rhythm Normal ECG When compared with ECG of 21-DEC-2024 21:57, No significant change was found Confirmed by ABHINAV DODSON ([id number]) on 03/12/2025 5:47:31 PM us Devan Douglas MD IMG ECG ORDERABLES Fin al Result EXTERNAL EKG * EKG SCAN (03/12/2025 12:00 AM CDT) 03/12/2025 us Provider Scan IMG ECG ORDERABLES Final Result RESULTING AGENCY from Last 3 Months Insurance [facility] Care Teams Sales And Service Engineer Relationship Specialty Start Date End Date Vlad Gonzales [address] [place] [address] PCP - General Family Medicine 03/12/25
--- OUTSIDE RECORDS SUMMARY | 2025-03-29 03:04 | XMS_ITS | Clinical Summary ---
Author Organization [facility] Address [address] [place] [address] Phone Care Team Providers Care Road Manager Name Role Phone Vlad Gonzales MD Primary Care Provider Allergies No known active allergies Medications valacyclovir [...] Comments Blood Pressure 132/62 07/14/2018 7:19 AM CABANA ATTENDANT Pulse 68 07/14/2018 7:19 AM CABANA ATTENDANT Temperature 36.8 C (98.3 F) 07/14/2018 7:19 AM CABANA ATTENDANT Respiratory Rate 18 07/14/2018 7:19 AM CABANA ATTENDANT Oxygen Saturation 93% 07/12/2018 12:00 PM CABANA ATTENDANT Inhaled Oxygen Concentration - - Weight 111.6 kg (246 lb) 07/11/2018 12:59 PM CABANA ATTENDANT Height 160 cm (5' 3) 07/11/2018 12:59 PM CABANA ATTENDANT Body Mass Index 43.58 07/11/2018 12:59 PM CABANA ATTENDANT Plan of Treatment Health Maintenance Due Date Last Done Comments DTAP/TDAP/TD VACCINES (1 - Tdap) 2004 HEPATITIS B VACCINES (1 of 3 - 19+ 3-dose series) 08/18 HPV/Cotest (21-29) 2006 HPV VACCINES (1 - 3-dose SCDM series) 2012 CERVICAL CANCER SCREENING 2015 HPV/Cotest (30-65) 2015 PAP SMEAR 2015 INFLUENZA VACCINE (#1) 2025 Insurance [facility] BLUE ACCESS CHOICE Advance Directives For more information, please contact: [phone] * Full Code (Latest Code Status on File) Date Activated Date Inactivated Comments 07/12/2018 5:00 PM 07/14/2018 3:18 PM * Full Code Date Activated Date Inactivated Comments 07/11/2018 2:54 PM 07/12/2018 5:00 PM * Full Code Date Activated Date Inactivated Comments 07/11/2018 2:54 PM 07/11/2018 2:[address] Manager Relationship Specialty Start Date End Date Vlad Gonzales MD [address] [place] [address] PCP - General Family Practice 02/22/18
--- OUTSIDE RECORDS SUMMARY | 2025-03-29 03:04 | XMS_ITS | Clinical Summary ---
Author Organization [facility] Address [address] [place] [address] Care Team Providers Care Food Safety Coordinator Name Role Phone Ja Hendricks MD Primary Care Provider [phone] Pratibha Francisco MD Unavailable Allergies No known [...] on file Legal Sex Female 2:04 PM COFFEE BAR ATTENDANT Gender Identity Not on file Sexual Orientation Not on file Last Filed Vital Signs Vital Sign Reading Time Taken Comments Blood Pressure 118/90 08/02/2022 11:41 AM COFFEE BAR ATTENDANT Pulse 78 08/02/2022 11:40 AM COFFEE BAR ATTENDANT Temperature - - Respiratory Rate 18 08/02/2022 11:40 AM COFFEE BAR ATTENDANT Oxygen Saturation - - Inhaled Oxygen Concentration - - Weight 101.6 kg (224 lb) 08/02/2022 11:40 AM COFFEE BAR ATTENDANT Height 160 cm (5' 3) 08/02/2022 11:40 AM COFFEE BAR ATTENDANT Body Mass Index 39.68 08/02/2022 11:40 AM COFFEE BAR ATTENDANT Plan of Treatment Health Maintenance Due [...] Cancer Screening with HPV 2015 COVID-19 Vaccine ( - 2023-2 5 season) 2025 Meningococcal B Vaccine Aged Out No l [...] patient's age to complete this topic Insurance [facility] [employer] [place] Advance Directives Documents on File Type Date Recorded Patient Food Dehydrator Operator Expl anation Legal Documents 03/10/2022 10:19 AM [facility] YVONNE BILLING REQUEST FOR ATTY ERIKA CANTU Legal Documents 02/26/2022 10:54 AM [facility] YVONNE BILLING REQUEST FOR ATTY: ERIKA CANTU Care Teams Food Safety Coordinator Relationship Specialty Start Date End Date Ja Hendricks MD [address] [place] [address] PCP - General INTERNAL MEDICINE 09/14/21 Pratibha Francisco MD [address] [place] [address] [place] Stallion Manager CARDIOVASCULAR DISEASE 05/18/22
--- OUTSIDE RECORDS SUMMARY | 2025-03-29 03:04 | XMS_ITS | Clinical Summary ---
Author Organization [facility] [employer] Address [address] [place] [address] Care Team Providers Care Bobbin Cleaner Hand Name Role Phone Ja Hendricks MD Primary Care Provider [phone] Source Comments [facility] [employer],non-owned Affiliates and Associated Physician Practices is amultiple site organization consisting of ambulatory clinics and hospital sitesin [place], [place], [place] and [place]. This disclosure is being madepursuant to the Care Everywhere program and may not contain all information available regarding this patient. 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 Gender Identity Not on file Sexual Orientation [...] VACCINE (1 - 3-dose SCDM series) 2012 DEPRESSION SCREENING 07/18/2024 COVID-19 VACCINE (1 - 2023-2 5 season) 2025 INFLUENZA VACCINE (#1) 2025 ZOSTER VACCINE (1 [...] 0.01 <1.00 [facility] Comment: Test Performed at: [facility] [address] [place] [address] BENITEZ CAT DO,MPH 10/22/2017 8:51 AM CDT 10/22/2017 8:53 AM CDT Ana Paula York MD LAB - CHEMISTRY ORDERA BLEEbenezer Final Result [facility] [address] [place] [address] from Last 3 Months or Most Recently Relevant to Health Maintenance Insurance ANTHBOB Member Subscriber Plan / Payer (Ef fective 2022-Present) Name:Pachecojey Erik Jin Relation to Subscriber:Self Name:Shimon Richardsonher Jin Payer ID:[id number] (NAIC) Type:PPO Address: [address] [place] Care Teams Bobbin Cleaner Hand Relationship Specialty Start Date End Date Ja Hendricks MD [address] [place], [place] [id number] PCP - General 06/08/21
--- OUTSIDE RECORDS SUMMARY | 2025-03-29 03:05 | XMS_ITS | Patient Health Record ---
Author Organization [facility] ? [facility] Address [address] [place] [address] Care Team Providers Care Inventory Manager Name Role Phone Eladio CHAPA, [facility] Primary Care Provider UnavailDolores Puente Unavailable [phone] Reason For Referral No Information Social History Sex Assigned At : Social History Observation Description Sex Assigned At Female Encounters Encounter Location Date Provider Diagnosis [facility] [facility] [address] [place] [address] 12/26/2024 Dolores Vaughn [facility] [address] [place] [address] 01/14/2025 Dolores Vaughn Plan Of Treatment No Information Insurance Providers Payer Name Payer Address Payer Phone Subscriber Number Group Number Insured Name Patient Relationship to Insured Coverage Start Date Coverage End Date [facility] [address] [place] [address] [id number] Linda Richardson Self - patient is the insured
--- OUTSIDE RECORDS SUMMARY | 2025-03-29 03:05 | XMS_ITS | Encounter Summary ---
Author Organization [facility] Address [address] [place] [address] Care Team Providers Care Belt Changer Name Role Phone Ja Hendricks MD Primary Care Provider [phone] Reason for Visit * Reason Onset Date Comments Nurse Only 07/28/2023 Encounter Details Date Type Department Care Team (Late st Contact Info) Description 07/28/2023 Telephone [facility] - Dermatology [address] [place] [address], [facility] [place] [address] Jeanine Cummins MD [address] [place] [address] [address] [place] [address] Nurse Only Social History Tobacco Use Types Packs/Day Years Used Date Smoking Tobacco: Former Cigarettes Smokeless Tobacco: Never Alcohol Use Standard Drinks/Week Comments No 0 (1 standard drink = 0.6 oz pur e alcohol) Comments Unknown Sex and Gender Information Value Date Recorded Sex Assigned at Not on file Legal Sex Female 5:33 AM SLEEP SCIENTIST Gender Identity Not on file Sexual Orientation Not on file documented as of this encounter Miscellaneous Notes * Telephone Encounter - Jeanine Cummins MD - 07/29/2023 10:32 AM SLEEP SCIENTIST New referral order placed by Dr. Chavez on 07/28/23. P SCIENTIST * Telephone Encounter - López Sanabria - 07/28/2023 2:46 PM CST Pt states she needs a new referral from Derm to [facility]. She has an appt on 08/08 and provider states she needs a new referral for 2023 P SCIENTIST documented in this encounter Plan of Treatment Not on file documented as of this encounter Visit Diagnoses Not on filedocumented in this encounter Care Teams Belt Changer Relationship Specialty Start Date End Date Ja Hendricks MD [address] [place], [place] [id number] PCP - General 06/08/21 documented as of this encounter
--- NOTE | 2025-03-29 08:24 | WPDHPUPDATE1 ---
History and Physical Update Update Date/Time: 03/29/25 08:24 History and Physical has been reviewed, including an updated exam of the patient. There are NO changes in the patient's condition. Risks, benefits, and alternatives have been discussed and questions answered. Patient agrees to proceed with procedure.
--- NOTE | 2025-03-29 13:34 | PC.NURSE ---
Report to the Outpatient Waiting Room, entrance under the green pavilion located off [facility], at time _0730_ on date _[id number]_. Planned Procedure Time: _0930_.? Time changes happen often and if your time is changed the preop area will call you the afternoon before. - You and your visitor will be asked to self-screen and do not enter if you have any COVID symptoms. Please call surgeon if you need to reschedule. - A mask is optional within the hospital at this time. Patients may have clear liquids (water, carbonated beverages, clear teas, apple juice) until 3 hours prior to surgery with a maximum of 20 ounces. - No food from midnight until time of surgery and no smoking, or chewing tobacco (or any form of nicotine). No chewing gum, candy or mints. Take only the following medications with a SIP of water on the morning of surgery: __Nebulizer if needed.___ DO NOT STOP ANY OF YOUR OTHER PRESCRIPTION MEDICATIONS PRIOR TO SURGERY EXCEPT THE FOLLOWING Hold all vitamins and supplements for 3 days per anesthesiologist. Medications to discontinue per physician Date to take last dose Please no make-up, nail croatian, hairspray, perfume, deodorant, or body powder the day of surgery.? No jewelry (including any body piercings) or valuables the day of surgery, leave them at home.? Please take a shower or bath the night before, or the morning of, surgery with an antibacterial soap.? Wear comfortable, loose fitting clothing.? - Jewelry must be removed prior to entering the operating room.? Rings and piercings that are not removed may be cut off. - The hospital will not accept responsibility for valuables.? - Please leave all valuables, including medications, at home the day of surgery. If you are going home after surgery, a licensed bus driver must drive you home.? - NO public transportation without another adult if you receive anesthesia. - We recommend that an adult stay with you for 24 hours following discharge. - We also recommend that you do not drive, make important decision, drink alcoholic beverages, or take any drugs that were not prescribed by your health care provider for at least 24 hours after your discharge time. Follow any additional instructions given to you from your surgeon. Telephone instructions given to ___Heather__and asked if any additional questions and then verbalized understanding. Patient advised to call surgeon office or pre surgery nurse liaison [phone] if any additional questions.
--- OUTSIDE RECORDS SUMMARY | 2025-04-04 11:09 | XMS_ITS | Encounter Summary ---
Author Organization [facility] Address [address] [place] [address] Phone Care Team Providers Care Manufacturing Manager Name Role Phone Vlad Gonzales Primary Care Provider [phone] Reason for Visit * Reason Comments Leg Pain Encounter Details Date Type Department Care Team ([facility] Contact Info) Description 04/04/2025 11:09 AM CDT - 04/04/2025 12:45 PM CDT Emergency [facility] [address] [place] [address] Jer Shah, PAC [address] [place] [address] Right leg pain Discharge Disposition: Discharged to home or Selfcare Social History Tobacco Use Types Packs/Day Years [...] on file documented as of this encounter Last Filed Vital Signs Vital Sign Reading Time Taken Comments Blood Pressure 133/75 04/04/2025 11:12 AM CDT Pulse 78 04/04/2025 12:44 PM CDT Temperature 36.4 C (97.6 F) 04/04/2025 11:12 AM CDT Respiratory Rate 16 04/04/2025 12:44 PM CDT Oxygen Saturation 98% 04/04/2025 12:44 PM CDT Inhaled Oxygen Concentration - - Weight 102.1 kg (225 lb) 04/04/2025 11:12 AM CDT Height 157.5 cm (5' 2) 04/04/2025 11:12 AM CDT Body Mass Index 41.15 04/04/2025 11:12 AM CDT documented in this encounter Medications at Time of Discharge albuterol 108 (90 Base) MCG/ACT Aerosol Solution take 2 Puffs by inhalation every 6 hours as needed for Cough. 6.7 g 06/13/2021 hydroxychloroquin e (PLAQUENIL) 200 MG Tablet Take 200 mg by mouth 2 times daily. pantoprazole (PROTONIX) 40 MG Tablet Delayed Response Take 1 Tablet by mouth daily. 30 Tablet 12/21/2024 traMADol (ULTRAM) 50 MG TabletIndications :Chest pain, unspecified type Take 1-2 Tablets by mouth every 6 hours as needed for Severe pain. 12 Tablet 12/21/2024 traMADol (ULTRAM) 50 MG TabletIndications :Cervical strain, acute, initial encounter Take 1 Tablet by mouth every 8 hours as needed for Moderate or more severe pain. 12 Tablet 07/01/2021 documented as of this encounter ED Notes * Louise Storm RN - 04/04/2025 12:44 PM CDT Patient discharged. Discharge instructions and patient educational material reviewed with patient; questions and concerns addressed; patient verbalizes understanding. Patient discharged per ambulatory mode. * Meeta Allen RN - 04/04/2025 11:48 AM CDT Patient is resting in room with call light at bedside. Patient informed about wait time and verbalizes understanding. Patient denies needs at this time and verbalizes understanding that RN will complete hourly rounding. * Angel Aguirre RN - 04/04/2025 11:15 AM CDT Pt. Ambulatory to the ED with c/o right leg pain x3 days, describing the pain as an ache behind herknee and radiating down her calf. Pt. States that it has been worsening, the past couple days, and wanted to get checked out before she has surgery tomorrow on her gallbladder. Pt. Denies any rednessor swelling to her right leg. * Jer Shah, CAROLE - 04/04/2025 11:15 AM CDT Chief Complaint Patient presents with Leg Pain Linda Richardson is a 39 y.o. female who presents to the ED c/o right posterior leg pain from popliteal fossa to calf for 3 days. No injury reported. No rash or skin color changes. No swelling. No CP or SOB. 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: IBS (irritable bowel syndrome) Current Medications[1] Allergies[2] Past Medical History Positives Diagnosis Date Discoid lupus IBS (irritable bowel syndrome) Past Surgical History[3] Social History Socioeconomic History Marital status: Single Spouse name: Not on file Number of children: Not on file Years of education: Not on file Highest education level: Not on file Occupational History Not on file Tobacco Use Smoking status: Former Smokeless tobacco: Never Vaping Use Vaping status: Never Used Substance and Sexual Activity Alcohol use: Not Currently Drug use: Never Sexual activity: Not on file Other Topics Concern Not on file Social History Narrative Not on file Social Drivers of Health Financial Resource Needs: Not on file Food Insecurity Needs: Not on file Transportation Needs: Not on file Physical Activity: Not on file Stress: Not on file Social Integration: Not on file Personal Safety: Low Risk (04/04/2025) Personal Safety Feels Unsafe at Home or Work/School: no Feels Threatened by Someone: no Does Anyone Try to Keep You From Having Contact with Others or Doing Things Outside Your Home?: no Physical Signs of Abuse Present: no Housing Stability: Not on file BP 133/75 Pulse 71 Temp 97.6 ??F (36.4 ??C) (Tympanic) Resp 16 Ht 5' 2 (1.575 m) Wt 225 lb (102.1 kg) LMP 05/01/2022 SpO2 100% BMI 41.15 kg/m?? Review of Systems Musculoskeletal: Positive for myalgias (posterior right leg). All other systems reviewed and are negative. Physical Exam Vitals and nursing note reviewed. Constitutional: General: She is not in acute distress. Appearance: She is well-developed. She is not diaphoretic. HENT: Head: Normocephalic and atraumatic. Cardiovascular: Rate and Rhythm: Normal rate and regular rhythm. Pulses: Dorsalis pedis pulses are 2+ on the right side. Posterior tibial pulses are 2+ on the right side. Heart sounds: Normal heart sounds. No murmur heard. Pulmonary: Effort: Pulmonary effort is normal. No respiratory distress. Breath sounds: Normal breath sounds. No wheezing, rhonchi or rales. Abdominal: General: Bowel sounds are normal. There is no distension. Palpations: Abdomen is soft. Tenderness: There is no abdominal tenderness. Musculoskeletal: General: Tenderness present. Normal range of motion. Right lower leg: Tenderness present. Skin: General: Skin is warm and dry. Neurological: Mental Status: She is alert and oriented to person, place, and time. Psychiatric: Behavior: Behavior normal. CBC w/ Diff Final Result US RIGHT DUPLEX LOWER EXTREMITY VEINS Final Result Impression: No deep vein thrombosis of the right lower extremity. BMP w/ Ca Final Result Procedures Recent Results (from the past 24 hours) BMP w/ Ca Collection Time: 04/04/25 11:47 AM Result Value Ref Range SODIUM 138 136 - 145 mmol/L POTASSIUM 4.2 3.5 - 5.1 mmol/L CHLORIDE 108 (H) 98 - 107 mmol/L CO2, VENOUS 19 (L) 22 - 30 mmol/L ANION GAP 15.2 <18.0 mmol/L GLUCOSE 97 70 - 99 mg/dL BUN 11 5 - 18 mg/dL CREATININE, BLOOD 0.57 (L) 0.60 - 1.00 mg/dL BUN/CREATININE RATIO 19 12 - 20 ratio CALCIUM 8.7 8.7 - 10.5 mg/dL GFR, ESTIMATED >60 >=60 GFR, EST. >60 >=60 GFR, EST. NONAFRICAN >60 >=60 CBC with Auto Differential Collection Time: 04/04/25 12:23 PM Result Value Ref Range WBC 6.17 4.00 - 12.00 10(3)/mcL RBC 4.58 3.80 - 5.30 10(6)/mcL HEMOGLOBIN (HGB) 13.5 12.0 - 15.8 g/dL HEMATOCRIT (HCT) 39.8 36.0 - 47.0 % MCV 86.9 82.0 - 96.0 fL MCH 29.5 26.0 - 34.0 pg MCHC 33.9 31.0 - 36.0 g/dL PLATELET COUNT 272 140 - 440 10(3)/mcL RDW 11.8 11.8 - 15.5 % MPV 8.9 (L) 9.7 - 12.4 fL NEUTROPHILS 62.0 47.0 - 73.0 % LYMPHOCYTES 28.2 18.0 - 42.0 % MONOCYTES 7.3 4.0 - 12.0 % EOSINOPHILS 1.9 0.0 - 5.0 % BASOPHILS 0.3 0.0 - 1.0 % IMMATURE GRANULOCYTE 0.3 0.0 - 0.4 % ABSOLUTE NEUTROPHILS 3.82 1.60 - 7.70 10(3)/mcL ABSOLUTE LYMPHOCYTES 1.74 1.30 - 3.20 10(3)/mcL ABSOLUTE MONOCYTES 0.45 0.20 - 1.00 10(3)/mcL ABSOLUTE EOSINOPHIL 0.12 0.00 - 0.40 10(3)/mcL ABSOLUTE BASOPHILS 0.02 0.00 - 0.10 10(3)/mcL ABSOLUTE IMMATURE GRANULOCYTE 0.02 0.00 - 0.03 10 (3) mcL. NRBC PER 100 WBC 0 Imaging Results US RIGHT DUPLEX LOWER EXTREMITY VEINS (Final result) Result time 04/04/25 12:24:24 Final result by Nikolas Colunga MD (04/04/25 12:24:24) Impression: Impression: No deep vein thrombosis of the right lower extremity. Narrative: DICTATING PHYSICIAN: Nikolas Colunga M.D. - [facility] Examination: Right lower extremity venous ultrasound. Clinical Information: 39-year-old female with history of right posterior leg pain. Comparison: None. Findings: The right common femoral, femoral, popliteal, proximal medial saphenous, and deep femoral veins arepatent and free of thrombus. The veins are normally compressible and have normal phasic flow and augmentation response. The paired peroneal and posterior tibial calf veins are patent. The contralateral (left) common femoral vein is patent and free of thrombus. Medical Decision Making See HPI. Right lower ext pain x 3 days. No injury. Routine labs and venous doppler US was completedand negative. No VTE. PCP follow up in 1-2 days. Return to ED for worsening sxs. Amount and/or Complexity of Data Reviewed Labs: ordered. Radiology: ordered. Clinical Impression 1. Right leg pain Disposition: No Disposition Selected The patient remained stable throughout their ED stay. My clinical impression was discussed with thepatient/family. Labs and radiology results were reviewed with them. I gave them the opportunity to ask questions, and addressed them as completely as possible given the information available at present. The therapeutic plan was discussed, advised to take medications as instructed, instructions weregiven and the importance of primary care follow up was stressed and encouraged. The patient/family voiced understanding of the plan, indications to return, and the need for follow up. [1] No current facility-administered medications for this encounter. Current Outpatient Medications Medication Sig Dispense Refill albuterol 108 (90 Base) MCG/ACT Aerosol Solution take 2 Puffs by inhalation every 6 hours as neededfor Cough. 6.7 g 0 hydroxychloroquine (PLAQUENIL) 200 MG Tablet Take 200 mg by mouth 2 times daily. pantoprazole (PROTONIX) 40 MG Tablet Delayed Response Take 1 Tablet by mouth daily. 30 Tablet 0 traMADol (ULTRAM) 50 MG Tablet Take 1-2 Tablets by mouth every 6 hours as needed for Severe pain. 12 Tablet 0 traMADol (ULTRAM) 50 MG Tablet Take 1 Tablet by mouth every 8 hours as needed for Moderate or more severe pain. 12 Tablet 0 [2] No Known Allergies [3] No past surgical history on file. Cosigned by Devan Silva MD at 04/04/2025 5:14 PM CDT documented in this encounter Plan of Treatment Not on file documented as of this encounter Procedures Procedure Name Priority Date/Time Associated Diagnosis Comments CBC WITH AUTO DIFFERENTIAL STAT 04/04/2025 12:23 PM CDT COMPLETE BLOOD COUNT (CBC) WITH DIFF STAT 04/04/2025 12:23 PM CDT US RIGHT DUPLEX LOWER EXTREMITY VEINS Stat with Interpretation 04/04/2025 12:14 PM CDT BASIC METABOLIC PANEL W/ CALCIUM TOTAL STAT 04/04/2025 11:47 AM CDT documented in this encounter Results * (ABNORMAL) CBC with Auto Differential (04/04/2025 12:23 PM CDT) WBC 6.17 4.00 - 12.00 10(3)/mcL 04/04/2025 12:28 PM CDT [facility] RBC 4.58 3.80 - 5.30 10(6)/mcL 04/04/2025 12:28 PM CDT [facility] HEMOGLOBIN (HGB) 13.5 12.0 - 15.8 g/dL 04/04/2025 12:28 PM CDT [facility] HEMATOCRIT (HCT) 39.8 36.0 - 47.0 % 04/04/2025 12:28 PM CDT [facility] MCV 86.9 82.0 - 96.0 fL 04/04/2025 12:28 PM CDT [facility] MCH 29.5 26.0 - 34.0 pg 04/04/2025 12:28 PM CDT [facility] MCHC 33.9 31.0 - 36.0 g/dL 04/04/2025 12:28 PM CDT [facility] PLATELET COUNT 272 140 - 440 10(3)/mcL 04/04/2025 12:28 PM CDT [facility] RDW 11.8 11.8 - 15.5 % 04/04/2025 12:28 PM CDT [facility] MPV 8.9(L) 9.7 - 12.4 fL 04/04/2025 12:28 PM CDT [facility] NEUTROPHILS 62.0 47.0 - 73.0 % 04/04/2025 12:28 PM CDT [facility] LYMPHOCYTES 28.2 18.0 - 42.0 % 04/04/2025 12:28 PM CDT [facility] MONOCYTES 7.3 4.0 - 12.0 % 04/04/2025 12:28 PM CDT [facility] EOSINOPHILS 1.9 0.0 - 5.0 % 04/04/2025 12:28 PM CDT [facility] BASOPHILS 0.3 0.0 - 1.0 % 04/04/2025 12:28 PM CDT [facility] IMMATURE GRANULOCYTE 0.3 0.0 - 0.4 % 04/04/2025 12:28 PM CDT [facility] ABSOLUTE NEUTROPHILS 3.82 1.60 - 7.70 10(3)/[facility] 04/04/2025 12:28 PM CDT [facility] ABSOLUTE LYMPHOCYTES 1.74 1.30 - 3.20 10(3)/[facility] 04/04/2025 12:28 PM CDT [facility] ABSOLUTE MONOCYTES 0.45 0.20 - 1.00 10(3)/[facility] 04/04/2025 12:28 PM CDT [facility] ABSOLUTE EOSINOPHIL 0.12 0.00 - 0.40 10(3)/[facility] 04/04/2025 12:28 PM CDT [facility] ABSOLUTE BASOPHILS 0.02 0.00 - 0.10 10(3)/[facility] 04/04/2025 12:28 PM CDT [facility] ABSOLUTE IMMATURE GRANULOCYTE 0.02 0.00 - 0.03 10 (3) [facility]. 04/04/2025 12:28 PM CDT [facility] NRBC PER 100 WBC 0 04/04/20 12:28 PM CDT [facility] Blood Venipuncture / Unknown 04/04/2025 12:23 PM CDT 04/04/2025 12:26 PM CDT us Jer Shah PAC HEMATOLOGY ORDERABLE S Final Result [facility] [address] [place] [address] * US RIGHT DUPLEX LOWER EXTREMITY VEINS (04/04/2025 12:14 PM CDT) Anatomical Region Laterality Modality vascular Right Ultrasound 04/04/2025 12:1 4 PM CDT Impressions 04/04/2025 12:18 PM CDT Impression: No deep vein thrombosis of the right lower extremity. Narrative 04/04/2025 12:18 PM CDT DICTATING PHYSICIAN: Nikolas Colunga M.D. - [facility] Examination: Right lower extremity venous ultrasound. Clinical Information: 39-year-old female with history of right posterior leg pain. Comparison: None. Findings: The right common femoral, femoral, popliteal, proximal medial saphenous, and deep femoral veins are patent and free of thrombus. The veins are normally compressible and have normal phasic flow and augmentation response. The paired peroneal and posterior tibial calf veins are patent. The contralateral (left) common femoral vein is patent and free of thrombus. Procedure Note Nikolas Colunga MD - 04/04/2025 DICTATING PHYSICIAN: Nikolas Colunga M.D. - [facility] Examination: Right lower extremity venous ultrasound. Clinical Information: 39-year-old female with history of right posteriorleg pain. Comparison: None. Findings: The right common femoral, femoral, popliteal, proximal medial saphenous,and deep femoral veins are patent and free of thrombus. The veins arenormally compressible and have normal phasic flow and augmentationresponse. The paired peroneal and posterior tibial calf veins are patent. The contralateral (left) common femoral vein is patent and free ofthrombus. Impression: No deep vein thrombosis of the right lower extremity. Jer Shah [facility] US ORDERABLES Fi nal Result * (ABNORMAL) BMP w/ Ca (04/04/2025 11:47 AM CDT) SODIUM 138 136 - 145 mmol/L 04/04/2025 12:10 PM CDT [facility] POTASSIUM 4.2 3.5 - 5.1 mmol/L 04/04/2025 12:10 PM [facility] CHLORIDE 108(H) 98 - 107 mmol/L 04/04/2025 12:10 PM [facility] CO2, VENOUS 19(L) 22 - 30 mmol/L 04/04/2025 12:10 PM [facility] ANION GAP 15.2 <18.0 mmol/L 04/04/2025 12:10 PM T [facility] GLUCOSE 97 70 - 99 mg/dL 04/04/2025 12:10 PM T [facility] BUN 11 5 - 18 mg/dL 04/04/2025 12:10 PM [facility] CREATININE, BLOOD 0.57(L) 0.60 - 1.00 mg/dL 04/04/2025 12:10 PM [facility] BUN/CREATININE RATIO 19 12 - 20 ratio 04/04/2025 12:10 PM [facility] CALCIUM 8.7 8.7 - 10.5 mg/dL 04/04/2025 12:10 PM [facility] GFR, ESTIMATED >60 >=60 04/04/2025 12:10 PM [facility] Comment: Creatinine Clearance is the preferred criteria for selecting drug dose adjustments in renally impaired patients. The GFR is provided as additional pertinent clinical information. GFR is reported in mL/min/1.73 sq m. Calculation based on the 2020 Chronic Kidney Disease Epidemiology Collaboration (CKD-EPI) equation refit without adjustment for race. GFR, EST. >60 >=60 025 12:10 PM [facility] Comment: Creatinine Clearance is the preferred criteria for selecting drug dose adjustments in renally impaired patients. The GFR is provided as additional pertinent clinical information. GFR is reported in mL/min/1.73 sq m. Calculation based on the 2009 Chronic Kidney Disease Epidemiology Collaboration (CKD-EPI). GFR, EST. NONAFRICAN >60 >=60 04/04/2025 12:10 PM [facility] Comment: Creatinine Clearance is the preferred criteria for selecting drug dose adjustments in renally impaired patients. The GFR is provided as additional pertinent clinical information. GFR is reported in mL/min/1.73 sq m. Calculation based on the 2009 Chronic Kidney Disease Epidemiology Collaboration (CKD-EPI). Blood Venipuncture / Unknown 04/04/2025 11:47 AM CDT 04/04/2025 11:50 AM CDT Jer Shah PAC CHEMISTRY ORDERABLES Final Result [facility] [address] [place] [address] documented in this encounter Visit Diagnoses Diagnosis Right leg pain- Primary Pain in limb documented in this encounter Care Teams Manufacturing Manager Relationship Specialty Start Date End Date Gonzales Vlad [address] [place] [address] PCP - General Family Medicine 03/12/25 documented as of this encounter
[2025-04-05] VITALS (10 sets, daily range): BP systolic 111–144; BP diastolic 62–79; PULSE 63–83; RESP 12–18; TEMP 36.2–36.3; O2SAT 95–100
--- OUTSIDE RECORDS SUMMARY | 2025-04-05 05:53 | XMS_ITS | Clinical Summary ---
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 Gender Identity Not on file Sexual Orientation Not on file Last Filed Vital Signs Vital Sign Reading Time Taken Comments Blood Pressure 118/90 08/02/2022 11:41 AM ADMISSION NURSE Pulse 78 08/02/2022 11:40 AM ADMISSION NURSE Temperature - - Respiratory Rate 18 08/02/2022 11:40 AM ADMISSION NURSE Oxygen Saturation - - Inhaled Oxygen Concentration - - Weight 101.6 kg (224 lb) 08/02/2022 11:40 AM ADMISSION NURSE Height 160 cm (5' 3) 08/02/2022 11:40 AM ADMISSION NURSE Body Mass Index 39.68 08/02/2022 11:40 AM ADMISSION NURSE Plan of Treatment Health Maintenance Due Date [...] patient's age to complete this topic Insurance [facility] [employer] [facility] [place] Advance Directives Documents on File Type Date Recorded 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
--- OUTSIDE RECORDS SUMMARY | 2025-04-05 05:53 | XMS_ITS | Encounter Summary ---
Author Organization [employer] Care Team Providers Care Direct Entry Midwife Name Role Phone Christian Vlad Primary Care Provider [phone] Encounter Details Date Type Department Care Team (Latest Contact Info) Description 04/04/2025 Travel Social History Tobacco Use Types Packs/Day Years [...] on file documented as of this encounter Plan of Treatment Not on file documented as of this encounter Visit Diagnoses Not on filedocumented in this encounter Care Teams Direct Entry Midwife Relationship Specialty Start Date End Date Vlad Gonzales [address] [place] [address] PCP - General Family Medicine 03/12/25 documented as of this encounter
--- OUTSIDE RECORDS SUMMARY | 2025-04-05 05:53 | XMS_ITS | Clinical Summary ---
Author Organization [facility] [address] [facility] [place] [address] Care Team Providers Care Children'S Court Magistrate Name Role Phone Ja Hendricks MD Primary Care Provider [phone] Patience Coyle CULINARY WORKER Unavailable Allergies No known active allergies Medications [...] Type Department Care Team Description 01/24/2025 Telephone [facility] Medicine Rheumatology [address] [facility] Office Building [address] [place] [address] Mary Salcedo, Teresita Lab Results; Biopsy Results 01/24/2025 Telephone [facility] Medicine Rheumatology [address] [facility] Office Building [address] [place] [address] Nia Mayorga NP 01/11/2025 1:20 PM CDT Office Visit [facility] Medicine Rheumatology [address] 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
--- OUTSIDE RECORDS SUMMARY | 2025-04-05 05:53 | XMS_ITS | Clinical Summary ---
Author Organization [facility] [employer] Address [address] [facility] [place] [address] Care Team Providers Care Ip Litigation Paralegal Name Role Phone Ja Hendricks MD Primary Care Provider [phone] Source Comments [facility] [employer],non-owned Affiliates and Associated Physician Practices is amultiple site organization consisting of ambulatory clinics and hospital sitesin [place], [place], [place] and [place]. This disclosure is being madepursuant to the Care Everywhere program and may not contain all information available regarding this patient. 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 Gender Identity Not on file Sexual [...] 0.01 <1.00 [facility] Comment: Test Performed at: [facility] [address] [place] [address] BENITEZ CAT DO,MPH 10/22/2017 8:51 AM CDT 10/22/2017 8:53 AM CDT Ana Paula York MD LAB - CHEMISTRY ORDERA BLEEbenezer Final Result [facility] [address] [place] [address] from Last 3 Months or Most Recently Relevant to Health Maintenance Insurance [employer] Member Subscriber Plan / Payer (Ef fective 2022-Present) Name:Pachecojey Erik Jin Relation to Subscriber:Self Name:Shimon Richardsonher Jin Payer ID:[id number] (NAIC) Type:PPO Address: [address] [place] Care Teams Ip Litigation Paralegal Relationship Specialty Start Date End Date Ja Hendricks MD [address] [place], [place] [id number] PCP - General 06/08/21
--- OUTSIDE RECORDS SUMMARY | 2025-04-05 05:53 | XMS_ITS | Clinical Summary ---
Author Organization [facility] Address [address] [place] [address] Phone Care Team Providers Care Lead Ramp Service Man Name Role Phone Vlad Gonzales Primary Care Provider [phone] Allergies No known active allergies Medications hydroxychloroqui [...] Encounters Date Type Department Care Team Description 04/04/2025 11:09 AM CDT - 04/04/2025 12:45 PM CDT Emergency [facility] [address] [place] [address] Jer Shah, CAROLE Right leg pain Discharge Disposition: Discharged to home or Selfcare 04/04/2025 Travel 03/12/2025 9:50 AM CDT - 03/12/2025 1:50 PM CDT Emergency [facility] [address] [facility] [place] [address] Devan Douglas MD Chest pain, unspecified type [...] Mass Index 41.15 04/04/2025 11:12 AM CDT Plan of Treatment Health Maintenance [...] CALCIUM TOTAL STAT 04/04/2025 11:47 AM CDT XR CHEST SINGLE VIEW PORTABLE STAT 03/12/2025 [...] CDT from Last 3 Months Results * (ABNORMAL) CBC with Auto Differential (04/04/2025 12:23 PM CDT) Only the most recent of2 resultswithin the time period is included. WBC 6.17 4.00 - 12.00 10(3)/mcL 04/04/2025 12:28 PM CDT [facility] RBC 4.58 3.80 - 5.30 10(6)/mcL 04/04/2025 12:28 PM CDT [facility] HEMOGLOBIN (HGB) 13.5 12.0 - 15.8 g/dL 04/04/2025 12:28 PM CDT [facility] HEMATOCRIT (HCT) 39.8 36.0 - 47.0 % 04/04/2025 12:28 PM CDT [facility] MCV 86.9 82.0 - 96.0 fL 04/04/2025 12:28 PM CDT [facility] MCH 29.5 26.0 - 34.0 pg 04/04/2025 12:28 PM CDT [facility] MCHC 33.9 31.0 - 36.0 g/dL 04/04/2025 12:28 PM CDT [facility] PLATELET COUNT 272 140 - 440 10(3)/[facility] 04/04/2025 12:28 PM CDT [facility] RDW 11.8 11.8 - 15.5 % 04/04/2025 12:28 PM CDT [facility] MPV 8.9(L) 9.7 - 12.4 fL 04/04/2025 12:28 PM CDT [facility] NEUTROPHILS 62.0 47.0 - 73.0 % 04/04/2025 12:28 PM CDT [facility] LYMPHOCYTES 28.2 18.0 - 42.0 % 04/04/2025 12:28 PM CDT [facility] MONOCYTES 7.3 4.0 - 12.0 % 04/04/2025 12:28 PM CDT [facility] EOSINOPHILS 1.9 0.0 - 5.0 % 04/04/2025 12:28 PM CDT [facility] BASOPHILS 0.3 0.0 - 1.0 % 04/04/2025 12:28 PM CDT [facility] IMMATURE GRANULOCYTE 0.3 0.0 - 0.4 % 04/04/2025 12:28 PM CDT [facility] ABSOLUTE NEUTROPHILS 3.82 1.60 - 7.70 10(3)/[facility] 04/04/2025 12:28 PM CDT [facility] ABSOLUTE LYMPHOCYTES 1.74 1.30 - 3.20 10(3)/[facility] 04/04/2025 12:28 PM CDT [facility] ABSOLUTE MONOCYTES 0.45 0.20 - 1.00 10(3)/[facility] 04/04/2025 12:28 PM CDT [facility] ABSOLUTE EOSINOPHIL 0.12 0.00 - 0.40 10(3)/[facility] 04/04/2025 12:28 PM CDT [facility] ABSOLUTE BASOPHILS 0.02 0.00 - 0.10 10(3)/[facility] 04/04/2025 12:28 PM CDT [facility] ABSOLUTE IMMATURE GRANULOCYTE 0.02 0.00 - 0.03 10 (3) [facility]. 04/04/2025 12:28 PM CDT [facility] NRBC PER 100 WBC 0 04/04/20 25 12:28 PM CDT [facility] Blood Venipuncture / Unknown 04/04/2025 12:23 PM CDT 04/04/2025 12:26 PM CDT us Jer Shah PAC HEMATOLOGY ORDERABLE S Final Result [facility] [address] [place] [address] * US RIGHT DUPLEX LOWER EXTREMITY VEINS (04/04/2025 12:14 PM CDT) Anatomical Region Laterality Modality vascular Right Ultrasound 04/04/2025 12:1 4 PM CDT Impressions 04/04/2025 12:18 PM CDT Impression: No deep vein thrombosis of the right lower extremity. Narrative 04/04/2025 12:18 PM CDT DICTATING PHYSICIAN: Nikolas Colunga M.D. - [facility] Examination: Right lower extremity venous [...] 04/04/2025 DICTATING PHYSICIAN: [facility] Examination: Right lower extremity venous ultrasound. [...] of the right lower extremity. Jer Shah [facility] US ORDERABLES Fi nal Result * (ABNORMAL) BMP w/ Ca (04/04/2025 11:47 AM CDT) SODIUM 138 136 - 145 mmol/L 04/04/2025 12:10 PM CDT [facility] POTASSIUM 4.2 3.5 - 5.1 mmol/L 04/04/2025 12:10 PM CDT [facility] CHLORIDE 108(H) 98 - 107 mmol/L 04/04/2025 12:10 PM CDT [facility] CO2, VENOUS 19(L) 22 - 30 mmol/L 04/04/2025 12:10 PM CDT [facility] ANION GAP 15.2 <18.0 mmol/L 04/04/2025 12:10 PM T [facility] GLUCOSE 97 70 - 99 mg/dL 04/04/2025 12:10 PM T [facility] BUN 11 5 - 18 mg/dL 04/04/2025 12:10 PM T [facility] CREATININE, BLOOD 0.57(L) 0.60 - 1.00 mg/dL 04/04/2025 12:10 PM CDT [facility] BUN/CREATININE RATIO 19 12 - 20 ratio 04/04/2025 12:10 PM [facility] CALCIUM 8.7 8.7 - 10.5 mg/dL 04/04/2025 12:10 PM T [facility] GFR, ESTIMATED >60 >=60 04/04/2025 12:10 PM [facility] Comment: Creatinine Clearance is the preferred criteria for selecting drug dose adjustments in renally impaired patients. The GFR is provided as additional pertinent clinical information. GFR is reported in mL/min/1.73 sq m. Calculation based on the 2020 Chronic Kidney Disease Epidemiology Collaboration (CKD-EPI) equation refit without adjustment for race. GFR, EST. >60 >=60 025 12:10 PM [facility] Comment: Creatinine Clearance is the preferred criteria for selecting drug dose adjustments in renally impaired patients. The GFR is provided as additional pertinent clinical information. GFR is reported in mL/min/1.73 sq m. Calculation based on the 2009 Chronic Kidney Disease Epidemiology Collaboration (CKD-EPI). GFR, EST. NONAFRICAN >60 >=60 04/04/2025 12:10 PM [facility] Comment: Creatinine Clearance is the preferred criteria for selecting drug dose adjustments in renally impaired patients. The GFR is provided as additional pertinent clinical information. GFR is reported in mL/min/1.73 sq m. Calculation based on the 2009 Chronic Kidney Disease Epidemiology Collaboration (CKD-EPI). Blood Venipuncture / Unknown 04/04/2025 11:47 AM CDT 04/04/2025 11:50 AM CDT us Jer Shah PAC CHEMISTRY ORDERABLES Final Result [facility] [address] [facility] [place] [place] [address] * XR CHEST SINGLE VIEW PORTABLE (03/12/2025 [...] Leobardo Pradhan M.D. CH: MARISELA Report ID: [id number] Reading Location: [id number] Procedure Note Leobardo Pradhan Jr., MD - [...] by Leobardo Pradhan M.D. CH: Report ID: [id number] Reading Location: [place] [address] IMPRESSION: No acute cardiopulmonary abnormality. Jer Shah PAC IMG DIAGNOSTIC ORDER ELDER Final Result * TROPONIN I, HIGH SENSITIVITY (HSTRP) (03/12/2025 10:11 AM CDT) Pathologist [facility] TROPONIN I, HIGH SENSITIVITY- [facility] <2.7 <=14.0 ng/L 03/12/2025 10:53 AM CDT [facility] Comment: High-sensitivity troponin I results are reported in ng/L making the result appear to be 1,000 times higher than the contemporary troponin I value which is reported in ng/ml. Results from [place]. Blood Venipuncture / Unknown 03/12/2025 10:11 AM CDT 03/12/2025 10:21 AM CDT Jer Shah PAC CHEMISTRY ORDERABLES Final Result Performing Organization Address City/[facility]/ZIP Co de Phone Number [facility] [address] [place] [address] * Gold Top Tube (03/12/2025 10:11 AM CDT) Blood No Phlebotomy Charged / Unknown 03/12/2025 10:11 AM CDT 03/12/2025 10:27 AM CDT Devan Douglas MD CHEMISTRY ORDERABLES F inal Result [facility] [address] [place] [address] * Blue Top Tube (03/12/2025 10:11 AM CDT) Blood No Phlebotomy Charged / Unknown 03/12/2025 10:11 AM CDT 03/12/2025 10:27 AM CDT us Devan Douglas MD HEMATOLOGY ORDERABLES Final Result [facility] [address] [place] [address] * (ABNORMAL) Comprehensive Metabolic Panel (Cmp) [id number] (03/12/2025 10:11 AM CDT) SODIUM 140 136 - 145 mmol/L 03/12/2025 10:50 AM CDT [facility] POTASSIUM 3.5 3.5 - 5.1 mmol/L 03/12/2025 10:50 AM CDT [facility] CHLORIDE 104 98 - 107 mmol/L 03/12/2025 10:50 AM CDT [facility] CO2, VENOUS 26 22 - 30 mmol/L 03/12/2025 10:50 AM CDT [facility] ANION GAP 13.5 <18.0 mmol/L 03/12/2025 10:50 AM CDT [facility] GLUCOSE 102(H) 70 - 99 mg/dL 03/12/2025 10:50 AM CDT [facility] BUN 12 5 - 18 mg/dL 03/12/2025 10:50 AM CDT [facility] CREATININE, BLOOD 0.71 0.60 - 1.00 mg/dL 03/12/2025 10:50 AM CDT [facility] BUN/CREATININE RATIO 17 12 - 20 ratio 03/12/2025 10:50 AM CDT [facility] TOTAL PROTEIN 7.2 6.0 - 8.0 g/dL 03/12/2025 10:50 AM CDT [facility] ALBUMIN 4.6 3.5 - 5.0 g/dL 03/12/2025 10:50 AM CDT [facility] A/G RATIO 1.8 1.0 - 2.2 03/12/2025 10:50 AM CDT [facility] CALCIUM 9.0 8.7 - 10.5 mg/dL 03/12/2025 10:50 AM CDT [facility] T BILI 1.1 0.2 - 1.2 mg/dL 03/12/2025 10:50 AM CDT [facility] SGOT (AST) 20 <43 U/L 03/12/2025 10:50 AM T [facility] SGPT (ALT) 15 <56 U/L 03/12/2025 10:50 AM [facility] ALKALINE PHOSPHATASE 63 40 - 150 U/L 03/12/2025 10:50 AM [facility] GFR, ESTIMATED >60 >=60 03/12/2025 10:50 AM T [facility] Comment: Creatinine Clearance is the preferred criteria for selecting drug dose adjustments in renally impaired patients. The GFR is provided as additional pertinent clinical information. GFR is reported in mL/min/1.73 sq m. Calculation based on the 2020 Chronic Kidney Disease Epidemiology Collaboration (CKD-EPI) equation refit without adjustment for race. GFR, EST. >60 >=60 025 10:50 AM [facility] Comment: Creatinine Clearance is the preferred criteria for selecting drug dose adjustments in renally impaired patients. The GFR is provided as additional pertinent clinical information. GFR is reported in mL/min/1.73 sq m. Calculation based on the 2009 Chronic Kidney Disease Epidemiology Collaboration (CKD-EPI). GFR, EST. NONAFRICAN >60 >=60 03/12/2025 10:50 AM [facility] Comment: Creatinine Clearance is the preferred criteria for selecting drug dose adjustments in renally impaired patients. The GFR is provided as additional pertinent clinical information. GFR is reported in mL/min/1.73 sq m. Calculation based on the 2009 Chronic Kidney Disease Epidemiology Collaboration (CKD-EPI). Blood Venipuncture / Unknown 03/12/2025 10:11 AM CDT 03/12/2025 10:21 AM CDT us Jer Shah PAC CHEMISTRY ORDERABLES Final Result [facility] [address] [facility] [place] [address] * EKG 12 LEAD (03/12/2025 9:49 AM CDT) Ventricular Rate 65 BPM EXTERNAL EKG Atrial Rate 65 BPM EXTERNAL EKG P-R Interval 138 ms EXTERNAL EKG QRS Duration 72 ms EXTERNAL EKG Q-T Duration 398 ms EXTERNAL EKG QTC CALCULATION 413 ms EXTERNAL EKG P [place] 73 degrees EXTERNAL EKG R [place] 58 degrees EXTERNAL EKG T [place] 21 degrees EXTERNAL EKG 03/12/2025 9:49 AM CDT Impressions EXTERNAL EKG - 03/12/2025 5:47 PM CDT Normal sinus rhythm Normal ECG When compared with ECG of 21-DEC-2024 21:57, No significant change was found Confirmed by ABHINAV DODSON ([id number]) on 03/12/2025 5:47:31 PM Narrative Procedure Note Abhinav Dodson MD - 03/12/2025 IMPRESSION: Normal sinus rhythm Normal ECG When compared with ECG of 21-DEC-2024 21:57, No significant change was found Confirmed by ABHINAV DODSON ([id number]) on 03/12/2025 5:47:31 PM us Devan Douglas MD IMG ECG ORDERABLES Fin al Result EXTERNAL EKG * EKG SCAN (03/12/2025 12:00 AM CDT) 03/12/2025 us Provider Scan IMG ECG ORDERABLES Final Result RESULTING AGENCY from Last 3 Months Insurance [facility] Care Teams Lead Ramp Service Man Relationship Specialty Start Date End Date Vlad Gonzales [address] [address] PCP - General Family Medicine 03/12/25
--- OUTSIDE RECORDS SUMMARY | 2025-04-05 05:53 | XMS_ITS | Encounter Summary ---
Author Organization [facility] Address [address] [place] [address] Care Team Providers Care Self Sealing Fuel Tank Repairer Name Role Phone Ja Hendricks MD Primary Care Provider [phone] Reason for Visit * Reason Onset Date Comments Nurse Only 07/28/2023 Encounter Details Date Type Department Care Team (Late st Contact Info) Description 07/28/2023 Telephone [facility] - Dermatology [address] [place] [address], [facility] [place] [address] Jeanine Cummins MD [address] [place] [address] [address] [place] [address] Nurse Only Social History Tobacco Use Types Packs/Day Years Used Date Smoking Tobacco: Former Cigarettes Smokeless Tobacco: Never Alcohol Use Standard Drinks/Week Comments No 0 (1 standard drink = 0.6 oz pur e alcohol) Comments Unknown Sex and Gender Information Value Date Recorded Sex Assigned at Not on file Legal Sex Female 5:33 AM GLASSWARE DEFECT REPAIRER Gender Identity Not on file Sexual Orientation Not on file documented as of this encounter Miscellaneous Notes * Telephone Encounter - Jeanine Cummins MD - 07/29/2023 10:32 AM GLASSWARE DEFECT REPAIRER New referral order placed by Dr. Chavez on 07/28/23. SWARE DEFECT REPAIRER * Telephone Encounter - López Sanabria - 07/28/2023 2:46 PM CST Pt states she needs a new referral from Derm to [facility]. She has an appt on 08/08 and provider states she needs a new referral for 2023 SWARE DEFECT REPAIRER documented in this encounter Plan of Treatment Not on file documented as of this encounter Visit Diagnoses Not on filedocumented in this encounter Care Teams Self Sealing Fuel Tank Repairer Relationship Specialty Start Date End Date Ja Hendricks MD [address] [place], [place] [id number] PCP - General 06/08/21 documented as of this encounter
[2025-04-05] MEDS: KETOROLAC 15 MG/ML VIAL (*BKC) IV PUSH ×2 (09:20→13:30)
[2025-04-05] MEDS: LACTATED RINGERS 1,000 ML 30 ML IV CONT ×2 (09:20→11:25)
[2025-04-05] MEDS: ACETAMINOPHEN 500 MG TABLET 1000 MG PO (09:20)
--- NOTE | 2025-04-05 10:02 | WPDANESEPPF ---
Anes - Initial Pre Proc Eval Procedure: Operation Date: 04/05/25 10:30 Proposed Procedures p Laparoscopic Cholecystectomy - Zacarias Mario MD Date/Time: 04/05/25 10:02 Surgeon: Zacarias Mario MD Pre Op Diagnosis: acalculous cholecystitis Patient Data Age: 39 Gender: F Height: 1.57 m Weight: 100.3 kg Last Vital Signs Temp 97.1 F L 04/05/25 09:20 Pulse 76 04/05/25 09:20 Resp 16 04/05/25 09:20 BP 130/78 04/05/25 09:20 Pulse Ox 98 04/05/25 09:20 O2 Del Method Room Air 04/05/25 09:20 Allergies Allergy/AdvReac Type Severity Reaction Status Date / Time No Known Allergies Allergy Verified 04/05/25 09:48 Home Medications ?Medication ?Instructions ?Recorded ?Confirmed ?Type albuterol sulfate 2.5 mg/0.5 mL 2.5 mg inhalation Q6-8H PRN 03/28/25 03/29/25 History solution for nebulization shortness of breath or wheezing amitriptyline 10 mg tablet 10 mg PO QHS 03/28/25 03/29/25 History clobetasol 0.05 % scalp solution 1 applic topical BID PRN skin 03/28/25 03/29/25 History irritation eluxadoline 100 mg tablet (Viberzi) 100 mg PO DAILY PRN diarrhea 03/28/25 03/29/25 History Patient hx anesthesia problems: none Family hx anesthesia problems: none Results Review: All pre-operative results and documents have been reviewed as part of the pre-operative evaluation. [facility] Past Medical History Medical History Dark stools Active asthma Epigastric pain Diarrhea Nausea IBS (irritable colon syndrome) Alternating constipation and diarrhea Chronic discoid lupus erythematosus Discoid lupus Surgical History Surgical History H/O excision of mass RUE mass 10/07/21 H/O elbow surgery BILATERAL History of carpal tunnel surgery of right wrist History of carpal tunnel surgery of left wrist Family History Family History Father Acute myocardial infarction Hypertension Alcoholism Diabetes mellitus Heart problem Mother Alcoholism Hypertension Heart problem Sibling Alcoholism Other Depression Social History Social History Smoking packs per day: 0.25 Smoking cigarettes per day: 5.0 Years smoked: 10 Smoking pack-years: 2.50 Smoking status: Former smoker Tobacco type: cigarettes Smoking end date: 09/25/11 Alcohol intake: never Substance use: never Substance use type: does not use Living arrangements: with family Additional living arrangements comments: [facility] AND 4 CHILDREN Occupation/Education: occupation Additional occupation/education comments: [employer] Spiritual care concerns: No Anes - Eval Final PreProcedure Day of Procedure 04/05/25 10:02 Patient weight: morbidly obese Lungs: normal air movement Airway: Mallampati scale class II Neurological: alert and oriented Last oral intake: >/= 8 hours ASA classification: III Emergent: no Anesthetic plan: proceed Anesthesia type and monitoring: general ETT and standard monitoring Results Review: All pre-operative results and documents have been reviewed as part of the pre-operative evaluation. BMI 40, ex smoker quit 2013, pt goes to [employer]/walks several times weekly, no cp or sob. Informed Consent: The patient's anesthetic plan and its attendant risks and benefits were discussed with the patient/family/POA. Questions were solicited and answers provided to the satisfaction of the patient/family/POA.
--- NOTE | 2025-04-05 10:17 | WPDHPUPDATE1 ---
History and Physical Update Update Date/Time: 04/05/25 10:17 History and Physical has been reviewed, including an updated exam of the patient. There are NO changes in the patient's condition. Risks, benefits, and alternatives have been discussed and questions answered. Patient agrees to proceed with procedure.
[2025-04-05] MEDS: ceFAZolin 2 GM in SODIUM CHLORIDE 0.9% IV 50 ML 100 ML IVPB (10:28)
[2025-04-05] MEDS: BUPIVACAINE/EPINEPHRINE 0.5% 50 ML VIAL 30 ML INFILTRATE (11:00)
--- NOTE | 2025-04-05 11:09 | S_PTH ---
PATIENT: Linda Richardson LOC: [facility] U#:[id number] AGE/SX: 39/F ROOM: RE04/05/[address]: Zacarias Mario MD : 1985 BED: DIS: 04/05/2025 SPEC #: [id number] RECD: 04/05/25 12:47 STATUS: TERESA RESue #: [id number] NIMO: 04/05/25 11:[address]: Zacarias Mario DEPT: [facility] Surgical RECD BY: Carley Maier ENTERED: 04/05/25 12:47 SP TYPE: Surgical OTHR DR: Vlad Gonzales MD Tissues: A - Gallbladder Procedures: Hematoxylin and Eosin Stain Gross and Microscopic Level 3
--- NOTE | 2025-04-05 11:22 | P.OP_ITS ---
Procedure Note - Detailed Date of Procedure 04/05/25 Pre-op Diagnosis acalculous chronic cholecystitis Post-op Diagnosis Same Procedure Performed Laparoscopic cholecystectomy Surgeon Zacarias Mario MD [employer] Anest[facility] General and Local Indications Patient is a 39-year-old woman who for the last year has had postprandial epigastric and right upper quadrant pain that radiates to her back. It is associated sometimes with nausea vomiting and diarrhea. She had an ultrasound of her gallbladder which was normal. She had a HIDA scan however which showed a very low gallbladder ejection fraction of 10%. She is taken to surgery now for laparoscopic cholecystectomy. Findings Mild chronic inflammation, no biliary ductal dilatation, fatty liver. Description of Procedure Patient was taken to surgery and induced into general anesthesia. The abdomen is prepped and draped. Trocars were placed in the usual fashion with local anesthetic being administered prior to each trocar being placed. The gallbladder was decompressed with a laparoscopic aspirator. The cholecystotomy was closed with a Vicryl endoloop. Some adhesions in the area of the infundibulum were taken down from the gallbladder. The gallbladder was then retracted anterosuperiorly. Dissection was carried out in the cholecystohepatic triangle. The cystic duct and cystic artery were dissected out very clearly. The gallbladder was dissected off the liver at its lower 3rd. Critical view was achieved. I then securely clipped and divided the cystic duct and cystic artery. The gallbladder was then further dissected and freed entirely from its attachments to the liver. Cautery was used for hemostasis and bleeding was minimal. Gallbladder was then placed in Endo-Catch bag and retrieved through the 11 mm epigastric trocar site. We replaced the epigastric trocar and reviewed the right upper quadrant. Gallbladder fossa was irrigated 2 or 3 times and the irrigant was suctioned away. All looked good with no evidence of bleeding or bile leakage. We then evacuated CO2 and removed the trocar sleeves. Skin wounds were closed with subcuticular 4-0 Monocryl skin suture. Skin wounds were dressed with Exofin surgical adhesive. Patient was awakened and taken to recovery in good condition. Sponge needle counts were correct x2. Estimated Blood Loss -5 Drains No Packing No Pathology Yes (Gallbladder) Complications None Condition Stable Disposition PACU [facility] Billing Surgery - Charge Forward: Surgery Billing (Laparoscopic cholecystectomy)
[2025-04-05] MEDS: fentaNYL CITRATE INJ (*CRX) 100 MCG/2 ML VIAL 25 MCG IV PUSH ×8 (11:45→12:32)
[2025-04-05] MEDS: ONDANSETRON INJ 4 MG/2 ML VIAL IV PUSH (11:46)
[2025-04-05] MEDS: oxyCODONE HCL (*CRX) 5 MG TAB IR PO (13:05)
== END 2025-04-05 14:05 | disposition home or self-care (01) ==
PROVIDERS: PCP Emergency Medicine; Visit Provider Surgery
PROC: 0FT44ZZ Resection of Gallbladder, Percutaneous Endoscopic Approach (ICD-10-PCS; CPT 47562; principal; 2025-04-05 10:30)
DX: K80.10 Calculus of gallbladder with chronic cholecystitis without obstruction (principal); K66.0 Peritoneal adhesions (postprocedural) (postinfection); J45.909 Unspecified asthma, uncomplicated; K58.9 Irritable bowel syndrome, unspecified; L93.0 Discoid lupus erythematosus; E66.01 Morbid (severe) obesity due to excess calories; Z68.41 Body mass index [BMI] 40.0-44.9, adult; Z79.51 Long term (current) use of inhaled steroids; Z98.890 Other specified postprocedural states; Z87.891 Personal history of nicotine dependence; Z82.49 Family history of ischemic heart disease and other diseases of the circulatory system
CPT/HCPCS: 47562; 88304; J0690; A9270; J1100; J1885; J2250; J2405; J2704; J3010; J7120